=== PATIENT | male | born 1935 | race Caucasian/White ===

== ENCOUNTER 2017-06-25 13:19 | Inpatient (IN) | payer MEDICARE, MEDICAID ==
--- NOTE | 2017-06-25 15:19 | RADIOLOGY REPORT (SQ) ---
EXAM DESCRIPTION: CT HEAD WITHOUT COMPLETED DATE/TIME: 06/25/2017 3:06 pm REASON FOR STUDY: fall COMPARISON: February 2012 TECHNIQUE: Axial images acquired through the brain without intravenous contrast. Images reviewed wi th bone, brain and subdural windows. Images stored on PACS. All CT scanners at this facility use dose modulation, iterative reconstruction, and/or weight based d osing when appropriate to reduce radiation dose to as low as reasonably achievable (ALARA). [facility]: Dose Right [facility]: CareDose [facility]: Dose Right [facility]: Teradose 4D [facility]: Smart [email or web address] RADIATION DOSE: CT Rad equipment meets quality standard of care and radiation dose reduction techniq ues were employed. CTDIvol: 64.6 mGy. DLP: 1163 mGy-cm.mGy. LIMITATIONS: None. FINDINGS: VENTRICLES: Prominent. Again there is prominence of the ventricular system out of proport ion to the cortical sulci such that I cannot exclude a component of normal pressure hydrocephalus CEREBRUM: No masses. No hemorrhage. No midline shift. Areas of low density in the white matter mos t likely due to chronic micro-vascular ischemic change. No evidence for acute infarction. CEREBELLUM: No masses. No hemorrhage. No alteration of density. No evidence for acute infarction. EXTRAAXIAL SPACES: Age-related involutional change. No fluid collections. No masses. ORBITS AND GLOBE: No intra- or extraconal masses. Normal contour of globe without masses. CALVARIUM: No fracture. PARANASAL SINUSES: Small air-fluid level is identified in the left maxillary antra which could be pos ttraumatic in nature or related to sinus disease. SOFT TISSUES: No mass or hematoma. OTHER: No other significant finding. IMPRESSION: CHRONIC CHANGES OF ATROPHY AND MICROVASCULAR ISCHEMIA. Again I cannot exclude a compone nt of normal pressure hydrocephalus. No acute intracranial abnormalities are identified. Sinus dise ase as noted above. Other findings as noted above EVIDENCE OF ACUTE STROKE: NO. TECHNICAL DOCUMENTATION: JOB ID: [id number] Quality ID # [id number]: Final reports with documentation of one or more dose reduction techniques (e.g., Au tomated exposure control, adjustment of the mA and/or kV according to patient size, use of iterative reconstruction technique) 2010 [employer]- All Rights Reserved
--- NOTE | 2017-06-25 15:35 | RADIOLOGY REPORT (SQ) ---
EXAM DESCRIPTION: CHEST SINGLE VIEW COMPLETED DATE/TIME: 06/25/2017 3:12 pm REASON FOR STUDY: syncope COMPARISON: 02/24/2014 02/29/2012 EXAM PARAMETERS: NUMBER OF VIEWS: One view. TECHNIQUE: Single frontal radiographic view of the chest acquired. RADIATION DOSE: NA LIMITATIONS: None. FINDINGS: LUNGS AND PLEURA: Minimal patchy left upper lobe airspace disease in the lingula. Lungs otherwise well inflated and clear. No pleural effusions. No pneumothorax. MEDIASTINUM AND HILAR STRUCTURES: No masses. Contour normal. HEART AND VASCULAR STRUCTURES: Heart normal in size. Normal vasculature. BONES: No acute findings. HARDWARE: None in the chest. OTHER: No other significant finding. IMPRESSION: Minimal left upper lobe airspace disease, otherwise unremarkable study TECHNICAL DOCUMENTATION: JOB ID: [id number]- All Rights Reserved
--- NOTE | 2017-06-25 15:38 | RADIOLOGY REPORT (SQ) ---
EXAM DESCRIPTION: CT CERVICAL SPINE WITHOUT COMPLETED DATE/TIME: 06/25/2017 3:06 pm REASON FOR STUDY: fall COMPARISON: February 2012 TECHNIQUE: Axial images acquired through the cervical spine without intravenous contrast. Images re viewed with lung, soft tissue and bone windows. Reconstructed coronal and sagittal MPR images review ed. Images stored on PACS. All CT scanners at this facility use dose modulation, iterative reconstruction, and/or weight based d osing when appropriate to reduce radiation dose to as low as reasonably achievable (ALARA). [facility]: Dose Right [facility]: CareDose [facility]: Dose Right [facility]: Teradose 4D [facility]: Smart [employer] RADIATION DOSE: CT Rad equipment meets quality standard of care and radiation dose reduction techniq ues were employed. CTDIvol: 18.9 mGy. DLP: 514 mGy-cm. mGy. LIMITATIONS: None. FINDINGS: ALIGNMENT: Anatomic. MINERALIZATION: Normal. VERTEBRAL BODIES: No fractures or dislocation. DISCS: Multilevel disc space narrowing with osteophytes. FACETS, LATERAL MASSES, POSTERIOR ELEMENTS: Facet arthropathy. No fractures. No dislocation. No ac [place] findings. HARDWARE: None in the spine. VISUALIZED RIBS: No fractures. LUNG APICES AND SOFT TISSUES: No significant or acute findings. OTHER: No other significant finding. IMPRESSION: CHRONIC DEGENERATIVE CHANGES. NO ACUTE FINDINGS. TECHNICAL DOCUMENTATION: JOB ID: [id number] Quality ID # [id number]: Final reports with documentation of one or more dose reduction techniques (e.g., Au tomated exposure control, adjustment of the mA and/or kV according to patient size, use of iterative reconstruction technique) 2010 [employer]- All Rights Reserved
[2017-06-25 15:47] LABS: ABSOLUTE BASOPHILS # (AUTO) 0.1 10^3/uL (0.0-0.2); ABSOLUTE EOSINOPHILS # (AUTO) 0.1 10^3/uL (0.0-0.6); ABSOLUTE LYMPHOCYTES (AUTO) 0.5 10^3/uL (0.5-4.7); ABSOLUTE MONOCYTES (AUTO) 0.8 10^3/uL (0.1-1.4); ABSOLUTE NEUT (AUTO) 7.1 10^3/uL (1.7-8.2); BASOPHILS % (AUTO) 0.6 % (0-2); EOSINOPHILS % (AUTO) 0.7 % (0-6); HEMATOCRIT 36.2 % (37.9-51.0); HEMOGLOBIN 12.3 g/dL (13.5-17.0); MEAN CORPUSCULAR HEMOGLOBIN 33.4 pg (27.0-33.4); MEAN CORPUSCULAR VOLUME 98 fl (80-97); MONOCYTES % (AUTO) 9.4 % (3-13); PLATELET COUNT 174 10^3/uL (150-450); RED BLOOD COUNT 3.68 10^6/uL (4.35-5.55); RED CELL DISTRIBUTION WIDTH 13.5 % (11.5-14.0); SEGMENTED NEUTROPHILS % (AUTO) 83.3 % (42-78); TOTAL CELLS COUNTED % (AUTO) 100 %; WHITE BLOOD COUNT 8.5 10^3/uL (4.0-10.5)
--- NOTE | 2017-06-25 15:48 | ER Document Report ---
Addendum entered and electronically signed by TONY RAMOS DO 06/25/17 19: 48: Discharge - Discharge Clinical Impression: Normal pressure hydrocephalus Pneumonia Qualifiers: Pneumonia type: due to unspecified organism Laterality: left Lung location: unspecified part of lung Qualified Code(s): J18.9 - Pneumonia, unspecified organism Condition: Stable Disposition: ADMITTED OBSERVATION Admitting Provider: [facility] Unit Admitted: Telemetry Addendum entered and electronically signed by TONY RAMOS DO 06/25/17 19: 30: Course - Re-evaluation Re-evalutation: 06/25/17 19:27 Patient evaluated prior to discharge. Informed fam of the results of the urinalysis and the influenza swab. Informed that we are proceeding with discharge according to previous physician's note. Family members are very concerned about this plan. They state the patient is too unsteady on his feet and has fallen several times today. Patient does have a pneumonia that you can see on chest x-ray as well. I going to cancel the discharge at this time. Will consult with the hospitalist to admit patient. - Vital Signs Vital signs: Temp Pulse Resp BP Pulse Ox 98.4 F 17 155/52 H 98 06/25/17 17:30 06/25/17 19:01 06/25/17 19:01 06/25/17 19:01 - Laboratory Result Diagrams: 06/25/17 15:28 06/25/17 15:28 Laboratory results interpreted by me: 06/25/17 06/25/17 06/25/17 15:28 15:28 15:28 RBC 3.68 L Hgb 12.3 L Hct 36.2 L MCV 98 H Seg Neutrophils % 83.3 H Lymphocytes % 6.0 L PT 16.8 H APTT 38.1 H Potassium 3.5 L Direct Bilirubin 0.5 H Total Protein 5.9 L Albumin 3.3 L Urine Blood 06/25/17 18:34 RBC Hgb Hct MCV Seg Neutrophils % Lymphocytes % PT APTT Potassium Direct Bilirubin Total Protein Albumin Urine Blood SMALL H Discharge - Discharge Clinical Impression: Normal pressure hydrocephalus Pneumonia Qualifiers: Pneumonia type: due to unspecified organism Laterality: left Lung location: unspecified part of lung Qualified Code(s): J18.9 - Pneumonia, unspecified organism Condition: Stable Disposition: ADMITTED INPATIENT Admitting Provider: [facility] Unit Admitted: Medical Floor Additional Instructions: Follow up with DR Mckeon at [phone] regarding the abnormal cat scan findings of the brain that we discussed. Referrals: ARIE SMITH DO [Primary Care Provider] - Follow up as needed Addendum entered and electronically signed by TONY RAMOS DO 06/25/17 19: 18: Discharge - Discharge Clinical Impression: Normal pressure hydrocephalus Pneumonia Qualifiers: Pneumonia type: due to unspecified organism Laterality: left Lung location: unspecified part of lung Qualified Code(s): J18.9 - Pneumonia, unspecified organism Condition: Stable Additional Instructions: Follow up with DR Mckeon at [phone] regarding the abnormal cat scan findings of the brain that we discussed. Referrals: ARIE SMITH DO [Primary Care Provider] - Follow up as needed Original Note: ED General <TONY RAMOS - Last Filed: 06/25/17 19:48> - General TRAVEL OUTSIDE OF THE [place] IN LAST 30 DAYS: No - HPI Patient complains to provider of: syncope Onset: Just prior to arrival Similar symptoms previously: No Recently seen / treated by doctor: Yes - saw PMD yesterday <HARRY DECKER - Last Filed: 06/26/17 09:42> - General Chief Complaint: Syncope Stated Complaint: POSSIBLE SYNCOPE Time Seen by Provider: 06/25/17 14:00 - HPI Notes: Patient's daughter states that she left the patient in a chair in the kitchen and went to the bathroom when she returned he was on the floor with decreased responsiveness. His he did see his primary medical doctor yesterday and was started on azithromycin because he had a temperature. (HARRY DECKER) - Related Data Allergies/Adverse Reactions: No Known Allergies Allergy (Verified 03/07/13 10:47) Past Medical History - General Information source: Patient, Relative - daughter - Social History Smoking Status: Never Smoker Frequency of alcohol use: None Drug Abuse: None Lives with: Family Family History: None - Past Medical History Cardiac Medical History: Reports: Hx Hypercholesterolemia, Hx Hypertension Denies: Hx Coronary Artery Disease, Hx Heart Attack Pulmonary Medical History: Reports: Hx Pneumonia - "years ago" Denies: Hx Asthma, Hx Bronchitis, Hx COPD, Hx Tuberculosis EENT Medical History: Reports: None Neurological Medical History: Reports: None. Denies: Hx Cerebrovascular Accident, Hx Migraine, Hx Seizures Endocrine Medical History: Reports: None GI Medical History: Reports: Hx Gastroesophageal Reflux Disease, Hx Hiatal Hernia Musculoskeltal Medical History: Denies Hx Arthritis Past Surgical History: Reports: Hx Appendectomy, Hx Cholecystectomy, Hx Orthopedic Surgery - left leg and left wrist - Immunizations Hx Diphtheria, Pertussis, Tetanus Vaccination: Yes - unknown Hx Pneumococcal Vaccination: 03/07/11 <HARRY DECKER E - Last Filed: 06/26/17 09:42> Review of Systems - Review of Systems Constitutional: Fever EENT: No symptoms reported Cardiovascular: No symptoms reported Respiratory: No symptoms reported Gastrointestinal: No symptoms reported Genitourinary: Incontinence Male Genitourinary: No symptoms reported Musculoskeletal: No symptoms reported Skin: No symptoms reported Hematologic/Lymphatic: No symptoms reported Neurological/Psychological: Dementia <BRIANNEDANYELLJONG E - Last Filed: 06/26/17 09:42> Physical Exam <TONY RAMOS A - Last Filed: 06/25/17 19:48> <BRIANNEDANYELLJONG E - Last Filed: 06/26/17 09:42> - Vital signs Vitals: Temp Pulse BP Pulse Ox 97.5 F 50 L 115/38 L 97 06/25/17 13:26 06/25/17 13:26 06/25/17 13:26 06/25/17 13:26 - Notes Notes: PHYSICAL EXAMINATION: GENERAL: elderly male, NAD appears stated age. HEAD: Atraumatic, normocephalic. EYES: Pupils equal round and reactive to light, extraocular movements intact, conjunctiva are normal. No nystagmus. ENT: Nares patent, oropharynx clear without exudates. Mildly dry mucous membranes. NECK: Normal range of motion, supple without lymphadenopathy LUNGS: Breath sounds clear to auscultation bilaterally and equal. No wheezes rales or rhonchi. HEART: Regular rate and rhythm +murmur ABDOMEN: Soft, nontender, nondistended abdomen. No guarding, no rebound. No masses appreciated. Female : deferred Musculoskeletal: Normal range of motion, no pitting or edema. No cyanosis. NEUROLOGICAL: Cranial nerves grossly intact-harh of hearing. Normal speech. Normal sensory, motor exams. Patient ambulates with shuffled gait(new for patient as per family). Alert x2 PSYCH: Normal mood, normal affect. SKIN: Warm, Dry, normal turgor, no rashes or lesions noted. PHYSICAL EXAMINATION: (HARRY DECKER) Course - Laboratory Result Diagrams: 06/25/17 15:28 06/25/17 15:28 <TONY RAMOS - Last Filed: 06/25/17 19:48> - Laboratory Result Diagrams: 06/26/17 03:01 06/26/17 03:01 <HARRY DECKER - Last Filed: 06/26/17 09:42> - Re-evaluation Re-evalutation: 06/25/17 19:15 Patient was taken at sign out at [address] Decker. Plan is to discharge based on above. Reviewing the urinalysis and influenza results. Both of these are negative. Will proceed with plans as described above. ( TONY RAMOS) 06/25/17 15:48 I did talk to Dr. Davis regarding the probability of normal pressure hydrocephalus. Patient did have a CAT scan in 2012 of the head which also revealed possibility of normal pressure hydrocephalus. Dr. Davis did compared to and she said that there is not any progression on the one done today. 06/25/17 16:24 I did get the patient up to ambulate with Arti RAMON. He does have a shuffled gait. He also had urinary incontinence in the emergency department which is new for the patient. 06/25/17 16:35 I did call [facility] and spoke with transfer line.Faxing over demographic sheet. Awaiting call back from hospitalist. 06/25/17 17:[address] Arvizu at [facility] after he reviewed the Ct head and he stated patient can follow up as outpatient with Dr. Mckeon as outpatient. #[phone]. 06/25/17 17:29 I did inform the daughter that patient can f/u as OP for NPH. If there is any other reason to have a hospitalist consult I will. (HARRY DECKER) - Vital Signs Vital signs: Temp Pulse Resp BP Pulse Ox 98.9 F 86 18 132/44 H 91 L 01/20/18 08:17 06/26/17 08:28 06/26/17 08:28 06/26/17 08:17 06/26/17 08:28 - Laboratory Laboratory results interpreted by me: 06/25/17 06/25/17 06/25/17 15:28 15:28 15:28 RBC 3.68 L Hgb 12.3 L Hct 36.2 L MCV 98 H Seg Neutrophils % 83.3 H Lymphocytes % 6.0 L PT 16.8 H APTT 38.1 H Potassium 3.5 L Direct Bilirubin 0.5 H Total Protein 5.9 L Albumin 3.3 L Urine Blood 06/25/17 18:34 RBC Hgb Hct MCV Seg Neutrophils % Lymphocytes % PT APTT Potassium Direct Bilirubin Total Protein Albumin Urine Blood SMALL H Discharge <TONY RAMOS A - Last Filed: 06/25/17 19:48> <HARRY DECKER - Last Filed: 06/26/17 09:42> - Discharge Clinical Impression: Normal pressure hydrocephalus Pneumonia Qualifiers: Pneumonia type: due to unspecified organism Laterality: left Lung location: unspecified part of lung Qualified Code(s): J18.9 - Pneumonia, unspecified organism Condition: Stable Disposition: ADMITTED OBSERVATION
[2017-06-25 15:54] LABS: INTERNATIONAL RATION (INR) 1.28; PROTHROMBIN TIME 16.8 SEC (11.4-15.4)
[2017-06-25 15:55] LABS: PARTIAL THROMBOPLASTIN TIME 38.1 SEC (23.5-35.8)
[2017-06-25 16:11] LABS: ALANINE AMINOTRANSFERASE 36 U/L (21-72); ALBUMIN 3.3 g/dL (3.5-5.0); ALKALINE PHOSPHATASE 64 U/L (38-126); ANION GAP 8 (5-19); ASPARTATE AMINO TRANSFERASE 35 U/L (17-59); BILIRUBIN,DIRECT 0.5 mg/dL (0.0-0.4); BILIRUBIN,TOTAL 0.8 mg/dL (0.2-1.3); BLOOD UREA NITROGEN 19 mg/dL (7-20); CALCIUM 8.6 mg/dL (8.4-10.2); CARBON DIOXIDE 30 mmol/L (22-30); CHLORIDE 101 mmol/L (98-107); GLUCOSE 105 mg/dL (75-110); MAGNESIUM 1.7 mg/dL (1.6-2.3); POTASSIUM 3.5 mmol/L (3.6-5.0); SODIUM 138.7 mmol/L (137-145); TOTAL PROTEIN 5.9 g/dL (6.3-8.2)
[2017-06-25] MEDS ORDERED: POTASSIUM CHLORIDE 20 MEQ/15 ML UDCUP PO ONE (17:24)
[2017-06-25 18:28] LABS: A TYPE INFLUENZA AG NEGATIVE (NEGATIVE); B INFLUENZA AG NEGATIVE (NEGATIVE)
[2017-06-25 18:54] LABS: APPEARANCE,URINE CLEAR; BILIRUBIN,URINE NEGATIVE (NEGATIVE); COLOR,URINE STRAW; GLUCOSE, URINE NEGATIVE (NEGATIVE); KETONES,URINE NEGATIVE (NEGATIVE); LEUKOCYTE ESTERASE,URINE NEGATIVE (NEGATIVE); NITRITE,URINE NEGATIVE (NEGATIVE); PROTEIN,URINE NEGATIVE (NEGATIVE); URINE SPECIFIC GRAVITY 1.004; UROBILINOGEN,URINE NEGATIVE mg/dL (<2.0)
[2017-06-25] MEDS ORDERED: CEFTRIAXONE 1 GM/D5W RTU 1 GM/50 ML RTUPB IV ONE (19:29)
[2017-06-25] MEDS ORDERED: MAG HYDROX/AL HYDROX/SIMETH SUSP 30 ML UDCUP PO PRN (19:48)
[2017-06-25] MEDS ORDERED: CEFTRIAXONE INJ 1000 MG VIAL IV ONE (20:00)
[2017-06-25] MEDS: IPRATROPIUM/ALBUTEROL 0.5-2.5 MG/3 ML AMPUL NEB SCH (20:52)
[2017-06-25 21:17] LABS: URINE AMPHETAMINES SCREEN NEGATIVE; URINE BARBITURATES SCREEN NEGATIVE; URINE BENZODIAZEPINES SCREEN NEGATIVE; URINE COCAINE SCREEN NEGATIVE; URINE MARIJUANA (THC) SCREEN NEGATIVE; URINE METHADONE SCREEN NEGATIVE; URINE PHENCYCLIDINE SCREEN NEGATIVE
[2017-06-25 22:06] LABS: CREATINE KINASE MB 0.94 ng/mL (<4.55)
[2017-06-25 22:11] LABS: TROPONIN I < 0.012 ng/mL
[2017-06-25] MEDS ORDERED: D METHORPHAN HB PO PRN (22:56)
[2017-06-25] MEDS ORDERED: PROMETH HCL PO PRN (22:56)
[2017-06-25] MEDS ORDERED: RISPERIDONE 0.25 MG TABLET PO ONE (23:00)
--- NOTE | 2017-06-25 23:07 | PDOC H&P ---
History of Present Illness Admission Date/PCP: 06/25/17 19:38 ARIE SMITH DO Patient complains of: Cough History of Present Illness: MALIKA SINGH is a 82 year old male with a past medical history of advanced Parkinson's with dementia and delirium, presents with worsening delirium, falls and shortness of breath and cough. In the emergency room he is found to have a CT of the head suggesting normal pressure hydrocephalus which is present from 2011 and left upper lobe infiltrate suggestive of pneumonia. He is started on empiric antibiotics referred to the hospitalist for admission. Family admits severe sundowning and agitation requiring sedation. Past Medical History Cardiac Medical History: Reports: Hyperlipidema, Hypertension Denies: Coronary Artery Disease, Myocardial Infarction Pulmonary Medical History: Reports: Pneumonia - "years ago" Denies: Asthma, Bronchitis, Chronic Obstructive Pulmonary Disease (COPD), Tuberculosis EENT Medical History: Reports: None Neurological Medical History: Reports: None Denies: Migraine, Seizures Endocrine Medical History: Reports: None GI Medical History: Reports: Gastroesophageal Reflux Disease, Hiatal Hernia Musculoskeltal Medical History: Denies: Arthritis Hematology: Denies: Anemia Past Surgical History Past Surgical History: Reports: Appendectomy, Cholecystectomy, Orthopedic Surgery - left leg and left wrist Social History Lives with: Family Smoking Status: Never Smoker Hx Recreational Drug Use: No Hx Prescription Drug Abuse: No - Advance Directive Resuscitation Status: Do Not Resuscitate Family History Family History: None Parental Family History Reviewed: Yes Children Family History Reviewed: Yes Sibling(s) Family History Reviewed.: Yes Medication/Allergy Home Medications: Aspirin [Aspirin EC] 81 mg PO DAILY 06/25/17 Azithromycin [Zithromax 250 mg Tablet] 250 mg PO DAILY 06/25/17 Cholecalciferol (Vitamin D3) [Vitamin D3 1000 Unit Tablet] 1,000 unit PO DAILY 06/25/17 D-Methorphan Hb/Prometh HCl [Promethazine-Dm Syrup] 5 ml PO Q6HP PRN 06/25/17 Donepezil HCl [Aricept] 10 mg PO QPM 06/25/17 Hydrochlorothiazide [Hydrodiuril 25 mg Tablet] 12.5 mg PO DAILY 06/25/17 Loratadine [Claritin] 10 mg PO DAILY 06/25/17 Lorazepam [Ativan 1 mg Tablet] 1 mg PO QAM 06/25/17 Lorazepam [Ativan 1 mg Tablet] 2 mg PO QHS 06/25/17 Nabumetone [Relafen] 1,000 mg PO QHS 06/25/17 Omeprazole 20 mg PO DAILY 06/25/17 Simvastatin [Zocor 20 mg Tablet] 20 mg PO QPM 06/25/17 Tamsulosin HCl [Flomax 0.4 mg Cap.sr] 0.4 mg PO DAILY 06/25/17 Zolpidem Tartrate [Ambien 5 mg Tablet] 5 mg PO QHS 06/25/17 Allergies/Adverse Reactions: No Known Allergies Allergy (Verified 03/07/13 10:47) Review of Systems ROS unobtainable: Due to mental status Physical Exam Vital Signs: Temp Pulse Resp BP Pulse Ox 98.4 F 78 22 H 139/53 H 98 06/25/17 17:30 06/25/17 20:52 06/25/17 21:13 06/25/17 21:13 06/25/17 21:13 General appearance: PRESENT: cooperative, disheveled, mild distress, thin Head exam: PRESENT: atraumatic, normocephalic Eye exam: PRESENT: conjunctiva pink, EOMI, PERRLA. ABSENT: scleral icterus Ear exam: PRESENT: normal external ear exam Mouth exam: PRESENT: moist, tongue midline Neck exam: ABSENT: carotid bruit, JVD, lymphadenopathy, thyromegaly Respiratory exam: PRESENT: crackles, decreased breath sounds, prolonged expiratory phas, tachypnea. ABSENT: clear to auscultation luis, stridor, wheezes Cardiovascular exam: PRESENT: RRR. ABSENT: diastolic murmur, rubs, systolic murmur Pulses: PRESENT: normal dorsalis pedis pul Vascular exam: PRESENT: normal capillary refill GI/Abdominal exam: PRESENT: normal bowel sounds, soft. ABSENT: distended, guarding, mass, organolmegaly, rebound, tenderness Rectal exam: PRESENT: deferred Extremities exam: PRESENT: full ROM. ABSENT: calf tenderness, clubbing, pedal edema Neurological exam: PRESENT: alert, awake, oriented to person, ataxia, CN II-XII grossly intact. ABSENT: motor sensory deficit Psychiatric exam: PRESENT: agitated, anxious Skin exam: PRESENT: dry, intact, warm. ABSENT: cyanosis, rash Results Laboratory Results: 06/25/17 06/25/17 21:00 21:00 Magnesium 1.8 TSH 1.21 06/25/17 06/25/17 21:00 21:04 Creatine Kinase 122 CK-MB (CK-2) 0.94 Troponin I < 0.012 Impressions: Chest X-Ray 06/25/17 14:01 IMPRESSION: Minimal left upper lobe airspace disease, otherwise unremarkable study Cervical Spine CT 06/25/17 14:27 IMPRESSION: CHRONIC DEGENERATIVE CHANGES. NO ACUTE FINDINGS. Head CT 06/25/17 14:27 IMPRESSION: CHRONIC CHANGES OF ATROPHY AND MICROVASCULAR ISCHEMIA. Again I cannot exclude a component of normal pressure hydrocephalus. No acute intracranial abnormalities are identified. Sinus disease as noted above. Other findings as noted above EVIDENCE OF ACUTE STROKE: NO. Assessment & Plan - Diagnosis (1) Pneumonia Qualifiers: Pneumonia type: due to unspecified organism Laterality: left Lung location: unspecified part of lung Qualified Code(s): J18.9 - Pneumonia, unspecified organism Is this a current diagnosis for this admission?: Yes Plan: Telemetry with supplemental oxygen, albuterol and Atrovent, pneumonia care set (2) Parkinson's disease dementia Is this a current diagnosis for this admission?: Yes Plan: Continue outpatient regiment (3) SunDown syndrome Is this a current diagnosis for this admission?: Yes Plan: Benzodiazepine and trial risperidone as needed (4) Normal pressure hydrocephalus Is this a current diagnosis for this admission?: Yes Plan: Possible contributor to mental status however present on imaging from 2011. Consider interventional radiology consult for LP versus supportive care - Time Time Spent: 50 to 70 Minutes - Inpatient Certification Medical Necessity: Need Close Monitoring Due to Risk of Patient Decompensation
[2017-06-25] MEDS ORDERED: LORAZEPAM 1 MG TABLET PO ONE (23:45)
[2017-06-26] MEDS: HEPARIN SOD (PORCINE) 5,000 UNIT/ML 1 ML SYRINGE SUBCUT SCH ×4 (00:16→22:28)
[2017-06-26] MEDS: DOXYCYCLINE HYCLATE 100 MG TABLET PO SCH ×3 (00:16→22:31)
[2017-06-26] MEDS ORDERED: RISPERIDONE 0.5 MG TAB.RAPDIS ONE (00:57)
[2017-06-26] MEDS: IPRATROPIUM/ALBUTEROL 0.5-2.5 MG/3 ML AMPUL NEB SCH ×4 (02:10→19:50)
[2017-06-26 03:19] LABS: ABSOLUTE BASOPHILS # (AUTO) 0.1 10^3/uL (0.0-0.2); ABSOLUTE LYMPHOCYTES (AUTO) 0.8 10^3/uL (0.5-4.7); ABSOLUTE MONOCYTES (AUTO) 0.7 10^3/uL (0.1-1.4); ABSOLUTE NEUT (AUTO) 8.2 10^3/uL (1.7-8.2); BASOPHILS % (AUTO) 0.6 % (0-2); HEMATOCRIT 33.7 % (37.9-51.0); HEMOGLOBIN 11.8 g/dL (13.5-17.0); LYMPHOCYTES % (AUTO) 7.9 % (13-45); MEAN CORPUSCULAR HGB CONC 34.9 g/dL (32.0-36.0); MEAN CORPUSCULAR VOLUME 97 fl (80-97); MONOCYTES % (AUTO) 7.6 % (3-13); PLATELET COUNT 172 10^3/uL (150-450); RED BLOOD COUNT 3.47 10^6/uL (4.35-5.55); RED CELL DISTRIBUTION WIDTH 13.3 % (11.5-14.0); SEGMENTED NEUTROPHILS % (AUTO) 83.9 % (42-78); TOTAL CELLS COUNTED % (AUTO) 100 %; WHITE BLOOD COUNT 9.7 10^3/uL (4.0-10.5)
[2017-06-26 03:38] LABS: ANION GAP 7 (5-19); BLOOD UREA NITROGEN 16 mg/dL (7-20); CALCIUM 9.1 mg/dL (8.4-10.2); CARBON DIOXIDE 29 mmol/L (22-30); CHLORIDE 101 mmol/L (98-107); CREATINE KINASE 177 U/L (55-170); GLUCOSE 130 mg/dL (75-110); POTASSIUM 3.4 mmol/L (3.6-5.0); SODIUM 137.3 mmol/L (137-145)
[2017-06-26 03:49] LABS: CREATINE KINASE MB 0.66 ng/mL (<4.55); TROPONIN I 0.025 ng/mL
[2017-06-26] MEDS ORDERED: LORAZEPAM 1 MG TABLET PO SCH ×2 (08:00→15:14)
[2017-06-26] MEDS: TAMSULOSIN HCL 0.4 MG CAP.SR.24H PO SCH (10:07)
[2017-06-26] MEDS: CHOLECALCIFEROL (D3) 1,000 UNIT TABLET PO SCH (10:07)
[2017-06-26] MEDS: DOCUSATE SODIUM 100 MG CAPSULE PO SCH ×2 (10:07→17:44)
[2017-06-26] MEDS: LORATADINE 10 MG TABLET PO SCH (10:07)
[2017-06-26] MEDS: LANSOPRAZOLE 15 MG TAB.RAP.DR PO SCH (10:08)
[2017-06-26] MEDS: ASPIRIN 81 MG TABLET, ENT COATED PO SCH (10:08)
--- NOTE | 2017-06-26 10:22 | EKG REPORT ---
SEVERITY:- ABNORMAL ECG - SINUS RHYTHM VENTRICULAR PREMATURE COMPLEX PROBABLE LVH WITH SECONDARY REPOL ABNRM BORDERLINE PROLONGED QT INTERVAL : Confirmed by: Toribio Lieberman 26-Jun-2017 10:22:15
[2017-06-26 10:38] LABS: CREATINE KINASE MB 0.58 ng/mL (<4.55); TROPONIN I 0.029 ng/mL
[2017-06-26] MEDS ORDERED: LORAZEPAM 1 MG TABLET PO ONE (12:15)
[2017-06-26] MEDS ORDERED: POTASSIUM CHLORIDE 10 MEQ TABLET.SA PO ONE (13:31)
--- NOTE | 2017-06-26 15:18 | PDOC PROGRESS REPORT ---
Subjective Progress Note for:: 06/26/17 Subjective:: The patient has an 82-year-old male with a past medical history of advanced Parkinson's with dementia and delirium who was admitted on 06/25/17 for worsening delirium and pneumonia. When first noted on this morning, the patient was quite somnolent. He would arouse briefly to sternal rub. He was seen again this afternoon with his family members present. He is found resting in bed comfortably on room air. He is socially appropriate and attempts to be conversational, although he is quite confused. The patient's daughter states that he has been in his usual state of health until approximately 3 or 4 days ago when he began complaining of shortness of breath, cough, and was more confused than his baseline. She states that she would like to arrange for him to go to short-term rehab for physical therapy once he is stable for discharge. Reason For Visit: SYNCOPE, ACUTE BRONCHITIS, COPD EXACERBATION, Physical Exam Vital Signs: Temp Pulse Resp BP Pulse Ox 98.8 F 87 18 138/45 H 93 06/26/17 11:33 06/26/17 14:21 06/26/17 14:21 06/26/17 11:33 06/26/17 14:21 Intake & Output 06/25/17 06/26/17 06/27/17 06:59 06:59 06:59 Intake Total 332 Balance 332 Weight 72.9 kg General appearance: PRESENT: no acute distress, hard of hearing, thin, well- developed, well-nourished Head exam: PRESENT: atraumatic, normocephalic Eye exam: PRESENT: conjunctiva pink, EOMI, PERRLA. ABSENT: scleral icterus Ear exam: PRESENT: normal external ear exam Mouth exam: PRESENT: moist, tongue midline Neck exam: ABSENT: carotid bruit, JVD, lymphadenopathy, thyromegaly Respiratory exam: PRESENT: clear to auscultation luis, decreased breath sounds - Bibasilar, prolonged expiratory phas, rhonchi. ABSENT: rales, wheezes Cardiovascular exam: PRESENT: RRR. ABSENT: diastolic murmur, rubs, systolic murmur Pulses: PRESENT: normal dorsalis pedis pul Vascular exam: PRESENT: normal capillary refill GI/Abdominal exam: PRESENT: normal bowel sounds, soft. ABSENT: distended, guarding, mass, organolmegaly, rebound, tenderness Rectal exam: PRESENT: deferred Extremities exam: PRESENT: full ROM. ABSENT: calf tenderness, clubbing, pedal edema Neurological exam: PRESENT: alert, awake, oriented to person, CN II-XII grossly intact, other - Pleasantly confused; usually appropriate and follows directions. ABSENT: oriented to place, oriented to time, oriented to situation , motor sensory deficit Psychiatric exam: PRESENT: appropriate affect, normal mood. ABSENT: homicidal ideation, suicidal ideation Skin exam: PRESENT: dry, intact, warm. ABSENT: cyanosis, rash Results Laboratory Results: 06/26/17 03:01 06/26/17 03:01 06/25/17 06/25/17 06/26/17 21:00 21:00 03:01 WBC 9.7 RBC 3.47 L Hgb 11.8 L Hct 33.7 L MCV 97 MCH 34.0 H MCHC 34.9 RDW 13.3 Plt Count 172 Seg Neutrophils % 83.9 H Lymphocytes % 7.9 L Monocytes % 7.6 Eosinophils % 0.0 Basophils % 0.6 Absolute Neutrophils 8.2 Absolute Lymphocytes 0.8 Absolute Monocytes 0.7 Absolute Eosinophils 0.0 Absolute Basophils 0.1 Sodium Potassium Chloride Carbon Dioxide Anion Gap BUN Creatinine Est GFR ( Amer) Est GFR (Non-Af Amer) Glucose Calcium Magnesium 1.8 TSH 1.21 06/26/17 03:01 WBC RBC Hgb Hct MCV MCH MCHC RDW Plt Count Seg Neutrophils % Lymphocytes % Monocytes % Eosinophils % Basophils % Absolute Neutrophils Absolute Lymphocytes Absolute Monocytes Absolute Eosinophils Absolute Basophils Sodium 137.3 Potassium 3.4 L Chloride 101 Carbon Dioxide 29 Anion Gap 7 BUN 16 Creatinine 1.11 Est GFR ( Amer) > 60 Est GFR (Non-Af Amer) > 60 Glucose 130 H Calcium 9.1 Magnesium TSH 06/25/17 06/25/17 06/26/17 21:00 21:04 03:01 Creatine Kinase 122 CK-MB (CK-2) 0.94 0.66 Troponin I < 0.012 0.025 06/26/17 06/26/17 06/26/17 03:01 09:48 09:48 Creatine Kinase 177 H 179 H CK-MB (CK-2) 0.58 Troponin I 0.029 Impressions: Chest X-Ray 06/25/17 14:01 IMPRESSION: Minimal left upper lobe airspace disease, otherwise unremarkable study Cervical Spine CT 06/25/17 14:27 IMPRESSION: CHRONIC DEGENERATIVE CHANGES. NO ACUTE FINDINGS. Head CT 06/25/17 14:27 IMPRESSION: CHRONIC CHANGES OF ATROPHY AND MICROVASCULAR ISCHEMIA. Again I cannot exclude a component of normal pressure hydrocephalus. No acute intracranial abnormalities are identified. Sinus disease as noted above. Other findings as noted above EVIDENCE OF ACUTE STROKE: NO. Assessment & Plan - Diagnosis (1) Pneumonia Qualifiers: Pneumonia type: due to unspecified organism Laterality: left Lung location: unspecified part of lung Qualified Code(s): J18.9 - Pneumonia, unspecified organism Is this a current diagnosis for this admission?: Yes Plan: Improved; the patient is now maintaining oxygen saturations while on room air. Continue doxycycline every 12 hours. Continue scheduled and as needed DuoNeb's. Supplemental oxygen as needed to keep saturations greater than 92%. Increase mobility; out of bed to chair for meals and ambulate in the hallways daily. Encourage incentive spirometry and flutter valve as patient is able. (2) Parkinson's disease dementia Is this a current diagnosis for this admission?: Yes Plan: The patient was quite delirious last night; likely secondary to advanced Parkinson's disease with dementia and sundowning. This morning he was somnolent and difficult to arouse until early afternoon. The patient is changed to inpatient status as his continued altered mental status and delirium from baseline requires medication adjustments. I have decreased his Ambien from 5 mg to 2.5 mg nightly. We will similarly decrease Ativan 1 mg every morning to 0.5 mg every morning. Continue risperidone. (3) SunDown syndrome Is this a current diagnosis for this admission?: Yes Plan: The patient's evening home dose of lorazepam 2mg qHS is continued. Will reduce the AM dose secondary to daytime somnolence. We will decrease the patient's Ambien from 5 mg to 2.5 mg. Continue Risperdal as needed for agitation. Provide for patient safety; fall precautions. (4) Normal pressure hydrocephalus Is this a current diagnosis for this admission?: Yes Plan: Possibly a contributor to his current mental status, however, it was noted on previous imaging from 2011. Consider interventional radiology consult for LP versus supportive care. - Time Time Spent with patient: 25-34 minutes Medications reviewed and adjusted accordingly: Yes Anticipated discharge: SNF - for short term rehabilitation Within: within 48 hours
[2017-06-26] MEDS: SIMVASTATIN 10 MG TABLET PO SCH (17:45)
[2017-06-26] MEDS ORDERED: ZOLPIDEM TARTRATE 5 MG TABLET PO SCH ×2 (22:00)
[2017-06-26] MEDS: LORAZEPAM 1 MG TABLET PO SCH (22:26)
[2017-06-26] MEDS: RISPERIDONE 0.25 MG TABLET PO SCH (23:49)
[2017-06-27] MEDS: ACETAMINOPHEN 325 MG TABLET PO PRN ×2 (01:16→15:15)
[2017-06-27] MEDS: IPRATROPIUM/ALBUTEROL 0.5-2.5 MG/3 ML AMPUL NEB SCH ×4 (01:59→20:13)
[2017-06-27 05:07] LABS: HEMATOCRIT 37.3 % (37.9-51.0); HEMOGLOBIN 12.5 g/dL (13.5-17.0); MEAN CORPUSCULAR HGB CONC 33.5 g/dL (32.0-36.0); MEAN CORPUSCULAR VOLUME 99 fl (80-97); PLATELET COUNT 181 10^3/uL (150-450); RED BLOOD COUNT 3.79 10^6/uL (4.35-5.55); RED CELL DISTRIBUTION WIDTH 13.6 % (11.5-14.0); WHITE BLOOD COUNT 12.8 10^3/uL (4.0-10.5)
[2017-06-27 05:35] LABS: ANION GAP 11 (5-19); BLOOD UREA NITROGEN 15 mg/dL (7-20); CALCIUM 9.3 mg/dL (8.4-10.2); CARBON DIOXIDE 28 mmol/L (22-30); CHLORIDE 99 mmol/L (98-107); GLUCOSE 140 mg/dL (75-110); SODIUM 137.8 mmol/L (137-145)
[2017-06-27] MEDS: HEPARIN SOD (PORCINE) 5,000 UNIT/ML 1 ML SYRINGE SUBCUT SCH ×3 (06:16→23:52)
[2017-06-27] MEDS ORDERED: LORAZEPAM 0.5 MG TABLET PO SCH (08:00)
[2017-06-27] MEDS: ASPIRIN 81 MG TABLET, ENT COATED PO SCH (09:34)
[2017-06-27] MEDS: LANSOPRAZOLE 15 MG TAB.RAP.DR PO SCH (09:34)
[2017-06-27] MEDS: TAMSULOSIN HCL 0.4 MG CAP.SR.24H PO SCH (09:35)
[2017-06-27] MEDS: LORATADINE 10 MG TABLET PO SCH (09:35)
[2017-06-27] MEDS: CHOLECALCIFEROL (D3) 1,000 UNIT TABLET PO SCH (09:35)
[2017-06-27] MEDS: DOCUSATE SODIUM 100 MG CAPSULE PO SCH ×2 (09:35→18:09)
[2017-06-27] MEDS: DOXYCYCLINE HYCLATE 100 MG TABLET PO SCH ×2 (09:36→23:52)
--- NOTE | 2017-06-27 12:31 | PDOC PROGRESS REPORT ---
Subjective Progress Note for:: 06/27/17 Subjective:: The patient has an 82-year-old male with a past medical history of advanced Parkinson's with dementia and delirium who was admitted on 06/25/17 for worsening delirium and pneumonia. The patient is seen on morning rounds resting in bed comfortably. He is sleeping, but wakes easily with gentle touch. He states that he is feeling fine and does not have any complaints at this time. Of note, the patient has dementia at baseline and no family members were present for the exam. Reason For Visit: PNEUMONIA,PARKINSON'S DISEASE DEMENTIA Physical Exam Vital Signs: Temp Pulse Resp BP Pulse Ox 98.5 F 95 20 161/53 H 91 L 06/27/17 07:48 06/27/17 07:48 06/27/17 07:48 06/27/17 07:48 06/27/17 07:48 Intake & Output 06/26/17 06/27/17 06/28/17 06:59 06:59 06:59 Intake Total 685 Balance 685 Weight 79 kg General appearance: PRESENT: no acute distress, hard of hearing, well-developed , well-nourished Head exam: PRESENT: atraumatic, normocephalic Eye exam: PRESENT: conjunctiva pink, EOMI, PERRLA. ABSENT: scleral icterus Ear exam: PRESENT: normal external ear exam Mouth exam: PRESENT: moist, tongue midline Neck exam: ABSENT: carotid bruit, JVD, lymphadenopathy, thyromegaly Respiratory exam: PRESENT: decreased breath sounds - bibasilar, prolonged expiratory phas. ABSENT: rales, rhonchi, wheezes Cardiovascular exam: PRESENT: RRR, +S1, +S2. ABSENT: diastolic murmur, rubs, systolic murmur Pulses: PRESENT: normal dorsalis pedis pul Vascular exam: PRESENT: normal capillary refill GI/Abdominal exam: PRESENT: normal bowel sounds, soft. ABSENT: distended, guarding, mass, organolmegaly, rebound, tenderness Rectal exam: PRESENT: deferred Extremities exam: PRESENT: full ROM. ABSENT: calf tenderness, clubbing, pedal edema Neurological exam: PRESENT: alert, awake, oriented to person, CN II-XII grossly intact. ABSENT: oriented to place, oriented to time, oriented to situation, motor sensory deficit Psychiatric exam: PRESENT: appropriate affect, normal mood. ABSENT: homicidal ideation, suicidal ideation Skin exam: PRESENT: dry, intact, warm. ABSENT: cyanosis, rash Results Laboratory Results: 06/27/17 04:28 06/27/17 04:28 06/27/17 06/27/17 04:28 04:28 WBC 12.8 H RBC 3.79 L Hgb 12.5 L Hct 37.3 L MCV 99 H MCH 33.0 MCHC 33.5 RDW 13.6 Plt Count 181 Sodium 137.8 Potassium 4.0 Chloride 99 Carbon Dioxide 28 Anion Gap 11 BUN 15 Creatinine 0.83 Est GFR ( Amer) > 60 Est GFR (Non-Af Amer) > 60 Glucose 140 H Calcium 9.3 Impressions: Chest X-Ray 06/25/17 14:01 IMPRESSION: Minimal left upper lobe airspace disease, otherwise unremarkable study Cervical Spine CT 06/25/17 14:27 IMPRESSION: CHRONIC DEGENERATIVE CHANGES. NO ACUTE FINDINGS. Head CT 06/25/17 14:27 IMPRESSION: CHRONIC CHANGES OF ATROPHY AND MICROVASCULAR ISCHEMIA. Again I cannot exclude a component of normal pressure hydrocephalus. No acute intracranial abnormalities are identified. Sinus disease as noted above. Other findings as noted above EVIDENCE OF ACUTE STROKE: NO. Assessment & Plan - Diagnosis (1) Pneumonia Qualifiers: Pneumonia type: due to unspecified organism Laterality: left Lung location: unspecified part of lung Qualified Code(s): J18.9 - Pneumonia, unspecified organism Is this a current diagnosis for this admission?: Yes Plan: Improved; the patient is now maintaining oxygen saturations while on room air. Continue doxycycline every 12 hours. Continue scheduled and as needed DuoNeb's. Supplemental oxygen as needed to keep saturations greater than 92%. Increase mobility; out of bed to chair for meals and ambulate in the hallways daily. Encourage incentive spirometry and flutter valve as patient is able. (2) Parkinson's disease dementia Is this a current diagnosis for this admission?: Yes Plan: The patient did well with dose reductions of Ambien and Ativan. I have decreased his Ambien from 5 mg to 2.5 mg nightly and from Ativan 1 mg every morning to 0.5 mg every morning. Continue risperidone as needed. (3) SunDown syndrome Is this a current diagnosis for this admission?: Yes Plan: Did well with dose reduction of Ambien last night. Will continue low dose of Ambien 2.5 mg qHS Continue Risperdal as needed for agitation. Provide for patient safety; fall precautions. (4) Normal pressure hydrocephalus Is this a current diagnosis for this admission?: Yes Plan: Possibly a contributor to his current mental status, however, it was noted on previous imaging from 2011. Consider interventional radiology consult for LP versus supportive care. - Time Time Spent with patient: 15-24 minutes Anticipated discharge: SNF - Short term rehab Within: within 24 hours
[2017-06-27] MEDS: SIMVASTATIN 10 MG TABLET PO SCH (18:09)
[2017-06-27] MEDS ORDERED: FLUTICASONE NASAL SPRAY 50 MCG/SPRY 120 SPRAY/16 GM NASL ONE (20:45)
[2017-06-27] MEDS ORDERED: NICOTINE 21 MG/24 HR PATCH.TD24 TD ONE (20:45)
[2017-06-27] MEDS ORDERED: NICOTINE 21 MG/24 HR PATCH.TD24 ONE (21:30)
[2017-06-27] MEDS ORDERED: FLUTICASONE NASAL SPRAY 50 MCG/SPRY 120 SPRAY/16 GM ONE (21:31)
[2017-06-27] MEDS ORDERED: MORPHINE SULFATE 10 MG/ML INJ IV ONE (21:56)
[2017-06-27] MEDS ORDERED: FUROSEMIDE INJ/PF 40 MG/4 ML SDV IV ONE (21:56)
[2017-06-27] MEDS ORDERED: LORAZEPAM INJ 2 MG/1 ML VIAL IV ONE (21:57)
[2017-06-27] MEDS: RISPERIDONE 0.25 MG TABLET PO SCH (23:52)
[2017-06-27] MEDS: LORAZEPAM 1 MG TABLET PO SCH (23:52)
[2017-06-28 00:02] LABS: ARTERIAL BLOOD BASE EXCESS 4.6 mmol/L; ARTERIAL BLOOD H2CO3 1.61 mmol/L (1.05-1.35); ARTERIAL BLOOD HCO3 31.1 mmol/L (20-26); ARTERIAL BLOOD O2 SATURATION 98.8 % (94-98); ARTERIAL BLOOD PCO2 53.5 mmHg (35-45); ARTERIAL BLOOD PH 7.38 (7.35-7.45); ARTERIAL BLOOD PO2 146.2 mmHg (80-100); ARTERIAL BLOOD TOTAL CO2 32.7 mmol/L (23-27)
[2017-06-28 00:07] LABS: ARTERIAL BLOOD FIO2 100%
[2017-06-28] MEDS ORDERED: METOPROLOL TARTRATE PF/INJ 5 MG/5 ML SDV IV ONE ×2 (00:17→00:22)
[2017-06-28] MEDS ORDERED: HYDRALAZINE HCL INJ/PF 20 MG/1 ML SDV IV PRN (00:17)
[2017-06-28 01:13] LABS: CREATINE KINASE MB 4.99 ng/mL (<4.55); TROPONIN I 0.081 ng/mL
[2017-06-28] MEDS: IPRATROPIUM/ALBUTEROL 0.5-2.5 MG/3 ML AMPUL NEB SCH ×4 (02:27→20:51)
[2017-06-28] MEDS: HEPARIN SOD (PORCINE) 5,000 UNIT/ML 1 ML SYRINGE SUBCUT SCH (05:42)
[2017-06-28] MEDS ORDERED: DEXTROSE 50%-WATER 25 GM/50 ML DISP.SYRIN IV PRN ×2 (06:19)
[2017-06-28] MEDS ORDERED: GLUCAGON,HUMAN RECOMB 1 MG INJ SUBCUT PRN (06:19)
[2017-06-28] MEDS ORDERED: DEXTROSE 40% GEL 15 GM TUBE PO PRN ×2 (06:19)
[2017-06-28 06:43] LABS: ARTERIAL BLOOD H2CO3 4.51 mmol/L (1.05-1.35); ARTERIAL BLOOD HCO3 39.2 mmol/L (20-26); ARTERIAL BLOOD O2 SATURATION 95.6 % (94-98); ARTERIAL BLOOD PO2 118.5 mmHg (80-100); ARTERIAL BLOOD TOTAL CO2 43.8 mmol/L (23-27)
[2017-06-28 06:46] LABS: HEMATOCRIT 43.4 % (37.9-51.0); HEMOGLOBIN 14.5 g/dL (13.5-17.0); MEAN CORPUSCULAR HEMOGLOBIN 32.9 pg (27.0-33.4); MEAN CORPUSCULAR HGB CONC 33.4 g/dL (32.0-36.0); MEAN CORPUSCULAR VOLUME 99 fl (80-97); PLATELET COUNT 201 10^3/uL (150-450); RED CELL DISTRIBUTION WIDTH 13.1 % (11.5-14.0)
[2017-06-28 06:51] LABS: ARTERIAL BLOOD FIO2 100%
[2017-06-28 06:54] LABS: ARTERIAL BLOOD PCO2 149.7 mmHg (35-45); ARTERIAL BLOOD PH 7.04 (7.35-7.45)
[2017-06-28] MEDS ORDERED: PHARMACY COMMUNICATION ORDER MC NR (07:00)
[2017-06-28] MEDS ORDERED: PROPOFOL INJ 200 MG/20 ML VIAL IV ONE (07:26)
[2017-06-28] MEDS ORDERED: MAG HYDROX/AL HYDROX/SIMETH SUSP 30 ML UDCUP NG PRN (07:30)
[2017-06-28] MEDS ORDERED: LORAZEPAM INJ 2 MG/1 ML VIAL IV SCH (08:00)
[2017-06-28] MEDS ORDERED: DEXTROSE 40% GEL 15 GM TUBE NG PRN ×2 (08:00)
[2017-06-28] MEDS: PROPOFOL 100 ML IV PRN ×3 (08:10→22:33)
--- NOTE | 2017-06-28 08:13 | RADIOLOGY REPORT (SQ) ---
EXAM DESCRIPTION: CHEST SINGLE VIEW COMPLETED DATE/TIME: 06/28/2017 7:41 am REASON FOR STUDY: intubation COMPARISON: 06/25/2017. FINDINGS: Single-view portable AP upright chest timed approximately 0731 hours. Appropriate endotracheal and nasogastric tubes. Chronic areas of scar and apical pleural thickening. Shifting infiltrates with improved aeration left lung, patchy infiltrate now in the right base. IMPRESSION: 1. Appropriate support lines and tubes. Shifting pulmonary infiltrates. TECHNICAL DOCUMENTATION: JOB ID: [id number]
--- NOTE | 2017-06-28 08:13 | RADIOLOGY REPORT (SQ) ---
EXAM DESCRIPTION: KUB/ABDOMEN (SINGLE VIEW) COMPLETED DATE/TIME: 06/28/2017 7:42 am REASON FOR STUDY: NGT placement COMPARISON: None. FINDINGS: Single-view abdomen, AP portable upright timed approximately 0733 hours. Distal aspect of the nasogastric tube lies appropriately within the stomach. Nonobstructive bowel gas pattern. IMPRESSION: Appropriate NG tube. TECHNICAL DOCUMENTATION: JOB ID: [id number]
[2017-06-28 08:15] LABS: ANION GAP 7 (5-19); BLOOD UREA NITROGEN 18 mg/dL (7-20); CARBON DIOXIDE 34 mmol/L (22-30); CHLORIDE 98 mmol/L (98-107); GLUCOSE 201 mg/dL (75-110); POTASSIUM 4.4 mmol/L (3.6-5.0); SODIUM 139.2 mmol/L (137-145)
[2017-06-28] MEDS ORDERED: VANCOMYCIN HCL 0 MG in DEXTROSE 5%-WATER 250 ML IV NR (08:15)
[2017-06-28] MEDS: NORMAL SALINE 1000 ML 1,000 ML IV PRN (09:00)
[2017-06-28] MEDS ORDERED: VANCOMYCIN HCL 1,500 MG in DEXTROSE 5%-WATER 250 ML IV ONE (09:00)
[2017-06-28 09:02] LABS: ARTERIAL BLOOD BASE EXCESS -1.5 mmol/L; ARTERIAL BLOOD H2CO3 1.25 mmol/L (1.05-1.35); ARTERIAL BLOOD HCO3 23.7 mmol/L (20-26); ARTERIAL BLOOD O2 SATURATION 99.4 % (94-98); ARTERIAL BLOOD PCO2 41.4 mmHg (35-45); ARTERIAL BLOOD PH 7.38 (7.35-7.45); ARTERIAL BLOOD PO2 220.9 mmHg (80-100); ARTERIAL BLOOD TOTAL CO2 24.9 mmol/L (23-27)
[2017-06-28 09:04] LABS: ARTERIAL BLOOD FIO2 60%
[2017-06-28] MEDS ORDERED: NORMAL SALINE 1000 ML 1,000 ML IV ONE (09:30)
[2017-06-28] MEDS ORDERED: DOXYCYCLINE MONO 5 MG/ML SUSP 60 ML NG SCH (10:00)
[2017-06-28 10:01] LABS: CREATINE KINASE MB 10.6 ng/mL (<4.55)
[2017-06-28 10:08] LABS: TROPONIN I 1.6 ng/mL
[2017-06-28] MEDS: DOCUSATE SODIUM 100 MG CAPSULE PO SCH (10:16)
[2017-06-28] MEDS: FLUTICASONE NASAL SPRAY 50 MCG/SPRY 120 SPRAY/16 GM NASL SCH (10:16)
[2017-06-28] MEDS: NICOTINE 21 MG/24 HR PATCH.TD24 TD SCH (10:16)
[2017-06-28] MEDS: TAMSULOSIN HCL 0.4 MG CAP.SR.24H PO SCH (10:30)
[2017-06-28] MEDS: ASPIRIN 81 MG TABLET, CHEWABLE NG SCH (10:30)
[2017-06-28] MEDS: CHOLECALCIFEROL (D3) 1,000 UNIT TABLET NG SCH (10:30)
[2017-06-28] MEDS: LORATADINE 10 MG TABLET NG SCH (10:30)
[2017-06-28] MEDS: CEFEPIME 1 GM/D5W RTU 1 GM/50 ML RTUPB IV SCH ×2 (10:30→22:31)
[2017-06-28] MEDS ORDERED: CLOPIDOGREL BISULFATE 300 MG TABLET NG ONE (11:00)
[2017-06-28] MEDS: MIDAZOLAM 2 MG/2 ML INJ IV PRN (11:13)
--- NOTE | 2017-06-28 12:28 | RADIOLOGY REPORT (SQ) ---
EXAM DESCRIPTION: CHEST SINGLE VIEW COMPLETED DATE/TIME: 06/28/2017 11:37 am REASON FOR STUDY: CENTRAL LINE PLACEMENT COMPARISON: AP chest 06/28/2017, 06/15/2017, 02/24/2014 EXAM PARAMETERS: NUMBER OF VIEWS: One view. TECHNIQUE: Single frontal radiographic view of the chest acquired. RADIATION DOSE: NA LIMITATIONS: None. FINDINGS: Endotracheal tube tip 5 cm above the audelia. Nasogastric tube tip and side port below the hemidiaphragms. Right jugular central line tip superior vena cava. LUNGS AND PLEURA: There is persistent airspace disease in the right lower low superimposed on the ant erior right 5th rib. Minimal airspace disease left upper lobe superimposed on the anterior 3rd rib. This is stable compared to previous study. No pleural effusions. No pneumothorax. MEDIASTINUM AND HILAR STRUCTURES: No masses. Contour normal. HEART AND VASCULAR STRUCTURES: Heart normal in size. Normal vasculature. BONES: Osteopenic HARDWARE: As above OTHER: No other significant finding. IMPRESSION: Tubes and lines in good positioning. Persistent minimal airspace disease in the left upper lobe and right lower lung. TECHNICAL DOCUMENTATION: JOB ID: [id number] [employer]- All Rights Reserved
[2017-06-28 13:21] LABS: CREATINE KINASE MB 9.38 ng/mL (<4.55); TROPONIN I 1.47 ng/mL
--- NOTE | 2017-06-28 13:42 | PDOC PROGRESS REPORT ---
Subjective Progress Note for:: 06/28/17 Subjective:: The patient has an 82-year-old male with a past medical history of advanced Parkinson's with dementia and delirium who was admitted on 06/25/17 for worsening delirium and pneumonia. The patient appeared to be improving with conservative treatments but developed acute respiratory failure with hypercapnia requiring intubation early in the morning on 06/28/2017. The patient is seen on morning rounds; the patient is sedated, intubated and mechanically ventilated. Reason For Visit: PNEUMONIA,PARKINSON'S DISEASE DEMENTIA Physical Exam Vital Signs: Temp Pulse Resp BP Pulse Ox 99.5 F 81 22 H 74/44 L 95 06/28/17 12:44 06/28/17 12:23 06/28/17 12:44 06/28/17 12:44 06/28/17 12:44 Intake & Output 06/27/17 06/28/17 06/29/17 06:59 06:59 06:59 Intake Total 685 863 Output Total 230 150 Balance 685 633 -150 Weight 79 kg 75.5 kg General appearance: PRESENT: well-developed, well-nourished, other - Sedated Head exam: PRESENT: atraumatic, normocephalic Eye exam: ABSENT: scleral icterus Mouth exam: PRESENT: moist Neck exam: ABSENT: carotid bruit, JVD, lymphadenopathy, thyromegaly Respiratory exam: PRESENT: clear to auscultation luis, symmetrical, other - Intubated and mechanically ventilated. ABSENT: rales, rhonchi, wheezes Cardiovascular exam: PRESENT: RRR, +S1, +S2. ABSENT: diastolic murmur, rubs, systolic murmur Pulses: PRESENT: normal dorsalis pedis pul Vascular exam: PRESENT: normal capillary refill GI/Abdominal exam: PRESENT: normal bowel sounds, soft. ABSENT: distended, guarding, mass, organolmegaly, rebound, tenderness Rectal exam: PRESENT: deferred Extremities exam: PRESENT: full ROM. ABSENT: calf tenderness, clubbing, pedal edema Neurological exam: PRESENT: other - Sedated Psychiatric exam: ABSENT: homicidal ideation, suicidal ideation Skin exam: PRESENT: dry, intact, warm. ABSENT: cyanosis, rash Results Laboratory Results: 06/28/17 06:00 06/28/17 06:00 06/27/17 06/28/17 06/28/17 23:45 06:00 06:00 WBC 19.0 H RBC 4.40 Hgb 14.5 Hct 43.4 MCV 99 H MCH 32.9 MCHC 33.4 RDW 13.1 Plt Count 201 Carbonic Acid 1.61 H HCO3/H2CO3 Ratio 19:1 ABG pH 7.38 ABG pCO2 53.5 H ABG pO2 146.2 H ABG HCO3 31.1 H ABG O2 Saturation 98.8 H ABG Base Excess 4.6 FiO2 100% Sodium 139.2 Potassium 4.4 Chloride 98 Carbon Dioxide 34 H Anion Gap 7 BUN 18 Creatinine 0.91 Est GFR ( Amer) > 60 Est GFR (Non-Af Amer) > 60 Glucose 201 H Calcium 10.0 06/28/17 06/28/17 06:30 08:50 WBC RBC Hgb Hct MCV MCH MCHC RDW Plt Count Carbonic Acid 4.51 H 1.25 HCO3/H2CO3 Ratio 8:1 18:1 ABG pH 7.04 L* 7.38 ABG pCO2 149.7 H* 41.4 ABG pO2 118.5 H 220.9 H ABG HCO3 39.2 H 23.7 ABG O2 Saturation 95.6 99.4 H ABG Base Excess 3.0 -1.5 FiO2 100% 60% Sodium Potassium Chloride Carbon Dioxide Anion Gap BUN Creatinine Est GFR ( Amer) Est GFR (Non-Af Amer) Glucose Calcium 06/28/17 06/28/17 06/28/17 00:36 00:36 08:45 Creatine Kinase 337 H 275 H CK-MB (CK-2) 4.99 H Troponin I 0.081 06/28/17 08:45 Creatine Kinase CK-MB (CK-2) 10.60 H Troponin I 1.600 Impressions: Cervical Spine CT 06/25/17 14:27 IMPRESSION: CHRONIC DEGENERATIVE CHANGES. NO ACUTE FINDINGS. Head CT 06/25/17 14:27 IMPRESSION: CHRONIC CHANGES OF ATROPHY AND MICROVASCULAR ISCHEMIA. Again I cannot exclude a component of normal pressure hydrocephalus. No acute intracranial abnormalities are identified. Sinus disease as noted above. Other findings as noted above EVIDENCE OF ACUTE STROKE: NO. Chest X-Ray 06/28/17 00:00 IMPRESSION: Tubes and lines in good positioning. Persistent minimal airspace disease in the left upper lobe and right lower lung. KUB X-Ray 06/28/17 00:00 IMPRESSION: Appropriate NG tube. Assessment & Plan - Diagnosis (1) Pneumonia Qualifiers: Pneumonia type: due to unspecified organism Laterality: left Lung location: unspecified part of lung Qualified Code(s): J18.9 - Pneumonia, unspecified organism Is this a current diagnosis for this admission?: Yes Plan: Worsened; the patient is now septic and intubated. Initial blood cultures: No growth at 48 hours Sedated, intubated, and mechanically ventilated. He has been transferred to the ICU. Pulmonology has been consulted; appreciate Dr. Barnard's assistance and recommendations. Will scale up antibiotics to Vancomycin and Cefepime. Continue scheduled and as needed DuoNeb's. (2) Sepsis Qualifiers: Sepsis type: sepsis due to unspecified organism Qualified Code(s): A41.9 - Sepsis, unspecified organism Is this a current diagnosis for this admission?: Yes Plan: Blood cultures: No growth at 48 hours. Has received fluid volume resuscitation. Central line is placed to monitor CVP ; currently 13. Will provide pressor support as needed; Cardiology recommends Neosynephrine. Currently receiving Vancomycin and Cefepime. Remaining plan as above. (3) Non-STEMI (non-ST elevated myocardial infarction) Is this a current diagnosis for this admission?: Yes Plan: Likely a type II non-STEMI secondary to sepsis. Troponin noted to be 1.6 and now trending down. Cardiology has been consulted; appreciate their assistance and recommendations. The patient has been placed on full dose lovenox. Will continue ASA and start plavix. (4) Acute respiratory failure with hypercapnia Is this a current diagnosis for this admission?: Yes Plan: The patient developed acute respiratory failure with hypercapnia. He is now intubated and mechanically ventilated. Remaining plan as above. (5) Parkinson's disease dementia Qualifiers: Dementia behavioral disturbance: without behavioral disturbance Qualified Code(s): G20 - Parkinson's disease; F02.80 - Dementia in other diseases classified elsewhere without behavioral disturbance; F02.80 - Dementia in other diseases classified elsewhere without behavioral disturbance; F02.80 - Dementia in other diseases classified elsewhere without behavioral disturbance Is this a current diagnosis for this admission?: Yes Plan: Ativan discontinued. Versed is available as needed for sedation adjunct. Will initiate Sinemet. (6) SunDown syndrome Is this a current diagnosis for this admission?: Yes Plan: Plan as above. (7) Normal pressure hydrocephalus Is this a current diagnosis for this admission?: Yes Plan: Possibly a contributor to his current mental status, however, it was noted on previous imaging from 2011. Consider interventional radiology consult for LP versus supportive care. - Time Time Spent with patient: 35 or more minutes Medications reviewed and adjusted accordingly: Yes
[2017-06-28] MEDS ORDERED: SUCCINYLCHOLINE CHLORIDE INJ 200 MG/10 ML VIAL ONE (14:10)
[2017-06-28] MEDS: CARBIDOPA/LEVODOPA 25-100 MG TABLET NG SCH ×2 (14:50→22:34)
[2017-06-28] MEDS: DEXTROSE 5%-WATER 250 ML with PHENYLEPHRINE HCL 40 MG IV PRN ×4 (15:42→20:47)
--- NOTE | 2017-06-28 17:32 | Operative Report ---
Operative Report DATE OF SURGERY: 06/28/17 PREOPERATIVE DIAGNOSIS: Respiratory failure POSTOPERATIVE DIAGNOSIS: same OPERATION: 1. Focused ultrasound the right neck. 2. Ultrasound directed insertion of right IJ central line. SURGEON: EVELYN TORRES ANESTHESIA: Local TISSUE REMOVED OR ALTERED: None COMPLICATIONS: None ESTIMATED BLOOD LOSS: Scant INTRAOPERATIVE FINDINGS: Below PROCEDURE: Informed consent was obtained. The patient was placed in Trendelenburg the right neck and chest wall were exposed, and prepped and draped in a sterile fashion. Surgical plan and surgical timeout discussed. The right neck was anesthetized with 1% lidocaine without epinephrine. Using the variable frequency linear transducer, real time, a 18-gauge needle and wire were threaded into the right internal jugular vein. The tract was dilated up, the dilator removed, and the triple-lumen central venous access catheter was threaded into the right internal jugular vein uneventfully to the hub. There was excellent aspiration and flush of saline through all 3 lumens. The catheter was affixed to the skin with a Biopatch and 2-0 silk suture; sterile dressing applied. The patient tolerated the procedure well. There were no complications. Follow-up chest x-ray showed no pneumothorax right chest; tip of the catheter in superior vena cava.
--- NOTE | 2017-06-28 17:51 | XCELERA REPORT ---
[address] [address] Transthoracic Echocardiogram Report Name: MALIKA SINGH Age: 82 yrs Gender: Male : 1935 Patient Status: Inpatient Patient Location: ICU^[facility]^A Study Date: 06/28/2017 02:13 PM Height: 73 in Weight: 166 lb BSA: 2.0 m2 Procedure: A two-dimensional transthoracic echocardiogram with color flow Doppler was performed. The study was technically difficult with many images being suboptimal in quality. The study was technically limited with all images being suboptimal in quality. Reason For Study: NSTEMI History: NSTEMI. Ordering Physician: JADE MILLS Performed By: Yulia Latif Interpretation Summary A two-dimensional transthoracic echocardiogram with color flow Doppler was performed. The left ventricle is mildly to moderately dilated. There is normal left ventricular wall thickness. LV EF is 25% Left ventricular systolic function is severely reduced. Doppler measurements suggest impaired left ventricular relaxation, which is associated with grade I/IV or mild diastolic dysfunction In a setting of severe global hypokinesia there is severe hypokinesia to akinesia of the IV septum and Anteroseptum. The right ventricle is normal in size and function. The right atrium is normal. The left atrium is mildly dilated. There is no evidence of mitral valve prolapse. There is no mitral valve stenosis. There is a trace amount of mitral regurgitation The aortic valve is mildly calcified There is no aortic valvular vegetation. There is no aortic valve stenosis There is no LVOT obstruction. There is a moderate amount of aortic regurgitation There is no tricuspid stenosis. There is a mild amount of tricuspid regurgitation There is mild pulmonary hypertension by echo RVSP is 34 mm of Hg , with RA mean of 10. There is no pulmonic valvular stenosis. There is no pulmonic valvular regurgitation. There is no pericardial effusion. MMode/2D Measurements & Calculations RVDd: 1.4 cm LVIDd: 5.5 cm FS: 17.4 % Ao root diam: 3.5 cm IVSd: 1.0 cm LVIDs: 4.5 cm EDV(Teich): 144.9 ml LVPWd: 0.96 cm ESV(Teich): 92.9 ml Ao root area: 9.5 cm2 EF(Teich): 35.9 % LA dimension: 4.2 cm Doppler Measurements & Calculations MV E max lauren: MV P1/2t max lauren: Ao V2 max: AI max lauren: 51.3 cm/sec 53.8 cm/sec 178.4 cm/sec 425.3 cm/sec MV A max lauren: MV P1/2t: 98.1 msec Ao max PG: AI max P.5 cm/sec 12.7 mmHg 72.4 mmHg MV E/A: 0.66 MVA(P1/2t): 2.2 cm2 AI dec slope: MV dec slope: 160.7 cm/sec2 240.9 cm/sec2 MV dec time: AI P1/2t: 0.32 sec 517.0 msec LV V1 max PG: PA V2 max: TR max lauren: 4.3 mmHg 72.6 cm/sec 245.7 cm/sec LV V1 max: PA max P.1 mmHg TR max P.2 cm/sec 24.1 mmHg Left Ventricle The left ventricle is mildly to moderately dilated. There is normal left ventricular wall thickness. LV EF is 25%. Left ventricular systolic function is severely reduced. Doppler measurements suggest impaired left ventricular relaxation, which is associated with grade I/IV or mild diastolic dysfunction. In a setting of severe global hypokinesia there is severe hypokinesia to akinesia of the IV septum and Anteroseptum. There is no thrombus. There is no ventricular septal defect visualized. Right Ventricle The right ventricle is normal in size and function. Atria The right atrium is normal. The left atrium is mildly dilated. The interatrial septum is intact with no evidence for an atrial septal defect. Mitral Valve There is no evidence of mitral valve prolapse. There is no vegetation seen on the mitral valve. There is no mitral valve stenosis. There is a trace amount of mitral regurgitation. Aortic Valve The aortic valve is mildly calcified. There is no aortic valvular vegetation. There is no aortic valve stenosis. There is no LVOT obstruction. There is a moderate amount of aortic regurgitation. Tricuspid Valve There is no tricuspid stenosis. There is a mild amount of tricuspid regurgitation. There is mild pulmonary hypertension by echo. RVSP is 34 mm of Hg , with RA mean of 10. Pulmonic Valve There is no pulmonic valvular stenosis. There is no pulmonic valvular regurgitation. Great Vessels The aortic root is not well visualized but is probably normal size. Effusions There is no pericardial effusion. : JADE MILLS > Jade Mills
--- NOTE | 2017-06-28 18:02 | PDOC CONSULTATION ---
Consultation Consult Date: 06/28/17 Attending physician:: STEPHANY ZIMMERMAN Consult reason:: acute/chronic resp failure History of Present Illness Admission Date/PCP: 06/26/17 14:51 ARIE SMITH DO History of Present Illness: MALIKA SINGH is a 82 year old male with a past medical history of advanced Parkinson's with dementia and delirium, presents with worsening delirium, falls and shortness of breath and cough. In the emergency room he is found to have a CT of the head suggesting normal pressure hydrocephalus which is present from 2011 and left upper lobe infiltrate suggestive of pneumonia. He is started on empiric antibiotics referred to the hospitalist for admission. Family admits severe sundowning and agitation requiring sedation. He subsequently had an [employer] on the floor and was taken to the ICU where he was intubated Past Medical History Cardiac Medical History: Reports: Hyperlipidema, Hypertension Denies: Coronary Artery Disease, Myocardial Infarction Pulmonary Medical History: Reports: Pneumonia - "years ago" Denies: Asthma, Bronchitis, Chronic Obstructive Pulmonary Disease (COPD), Tuberculosis EENT Medical History: Reports: None Neurological Medical History: Reports: None Denies: Migraine, Seizures Endocrine Medical History: Reports: None GI Medical History: Reports: Gastroesophageal Reflux Disease, Hiatal Hernia Musculoskeltal Medical History: Denies: Arthritis Psychiatric Medical History: Reports: Depression Hematology: Denies: Anemia Past Surgical History Past Surgical History: Reports: Appendectomy, Cholecystectomy, Orthopedic Surgery - left leg and left wrist Social History Lives with: Family Smoking Status: Never Smoker Number of Years Smokin Last Time Smoked: 1996 Frequency of Alcohol Use: None Hx Recreational Drug Use: No Hx Prescription Drug Abuse: No - Advance Directive Resuscitation Status: Do Not Resuscitate Family History Family History: None Parental Family History Reviewed: No Children Family History Reviewed: No Sibling(s) Family History Reviewed.: No Medication/Allergy Home Medications: Aspirin [Aspirin EC] 81 mg PO DAILY 06/25/17 Azithromycin [Zithromax 250 mg Tablet] 250 mg PO DAILY 06/25/17 Cholecalciferol (Vitamin D3) [Vitamin D3 1000 Unit Tablet] 1,000 unit PO DAILY 06/25/17 Donepezil HCl [Aricept] 10 mg PO QPM 06/25/17 Hydrochlorothiazide [Hydrodiuril 25 mg Tablet] 12.5 mg PO DAILY 06/25/17 Loratadine [Claritin] 10 mg PO DAILY 06/25/17 Lorazepam [Ativan 1 mg Tablet] 1 mg PO QAM 06/25/17 Lorazepam [Ativan 1 mg Tablet] 2 mg PO QHS 06/25/17 Nabumetone [Relafen] 1,000 mg PO QHS 06/25/17 Omeprazole 20 mg PO DAILY 06/25/17 Simvastatin [Zocor 20 mg Tablet] 20 mg PO QPM 06/25/17 Tamsulosin HCl [Flomax 0.4 mg Cap.sr] 0.4 mg PO DAILY 06/25/17 Zolpidem Tartrate [Ambien 5 mg Tablet] 5 mg PO QHS 06/25/17 Allergies/Adverse Reactions: No Known Allergies Allergy (Verified 03/07/13 10:47) Review of Systems ROS unobtainable: Due to endotracheal tube, Due to mental status Physical Exam Vital Signs: Temp Pulse Resp BP Pulse Ox 97.3 F 90 24 H 90/56 L 98 06/28/17 08:00 06/28/17 08:57 06/28/17 08:57 06/28/17 08:00 06/28/17 08:57 Intake & Output 06/27/17 06/28/17 06/29/17 06:59 06:59 06:59 Intake Total 685 863 Output Total 230 Balance 685 633 Weight 79 kg 75.5 kg General appearance: PRESENT: no acute distress, disheveled, well-developed. ABSENT: cooperative, mild distress, morbidly obese, obese, severe distress Head exam: PRESENT: atraumatic, normocephalic Eye exam: PRESENT: conjunctiva pale. ABSENT: conjunctival injection, conjunctiva pink, EOMI, nystagmus, periorbital swelling, scleral icterus Mouth exam: PRESENT: dry mucosa, neck supple, tongue midline, other - ET tube intact. ABSENT: laceration, moist Neck exam: ABSENT: carotid bruit, JVD, lymphadenopathy, thyromegaly, tracheal deviation, tracheostomy Respiratory exam: PRESENT: decreased breath sounds, prolonged expiratory phas, rales, rhonchi, symmetrical, unlabored. ABSENT: accessory muscle use, chest wall tenderness, clear to auscultation luis, crackles, retraction, stridor, tachypnea Cardiovascular exam: PRESENT: RRR, +S1, +S2 Pulses: PRESENT: normal radial pulses GI/Abdominal exam: PRESENT: diminished bowel sounds, soft Gentrourinary exam: PRESENT: indwelling catheter Extremities exam: ABSENT: clubbing, joint swelling Musculoskeletal exam: ABSENT: ambulatory, deformity, dislocation Neurological exam: ABSENT: alert, awake Skin exam: PRESENT: dry, warm Results Laboratory Results: 06/28/17 06:00 06/28/17 06:00 06/27/17 06/28/17 06/28/17 23:45 06:00 06:00 WBC 19.0 H RBC 4.40 Hgb 14.5 Hct 43.4 MCV 99 H MCH 32.9 MCHC 33.4 RDW 13.1 Plt Count 201 Carbonic Acid 1.61 H HCO3/H2CO3 Ratio 19:1 ABG pH 7.38 ABG pCO2 53.5 H ABG pO2 146.2 H ABG HCO3 31.1 H ABG O2 Saturation 98.8 H ABG Base Excess 4.6 FiO2 100% Sodium 139.2 Potassium 4.4 Chloride 98 Carbon Dioxide 34 H Anion Gap 7 BUN 18 Creatinine 0.91 Est GFR ( Amer) > 60 Est GFR (Non-Af Amer) > 60 Glucose 201 H Calcium 10.0 06/28/17 06/28/17 06:30 08:50 WBC RBC Hgb Hct MCV MCH MCHC RDW Plt Count Carbonic Acid 4.51 H 1.25 HCO3/H2CO3 Ratio 8:1 18:1 ABG pH 7.04 L* 7.38 ABG pCO2 149.7 H* 41.4 ABG pO2 118.5 H 220.9 H ABG HCO3 39.2 H 23.7 ABG O2 Saturation 95.6 99.4 H ABG Base Excess 3.0 -1.5 FiO2 100% 60% Sodium Potassium Chloride Carbon Dioxide Anion Gap BUN Creatinine Est GFR ( Amer) Est GFR (Non-Af Amer) Glucose Calcium 06/28/17 06/28/17 06/28/17 00:36 00:36 08:45 Creatine Kinase 337 H 275 H CK-MB (CK-2) 4.99 H Troponin I 0.081 Impressions: Cervical Spine CT 06/25/17 14:27 IMPRESSION: CHRONIC DEGENERATIVE CHANGES. NO ACUTE FINDINGS. Head CT 06/25/17 14:27 IMPRESSION: CHRONIC CHANGES OF ATROPHY AND MICROVASCULAR ISCHEMIA. Again I cannot exclude a component of normal pressure hydrocephalus. No acute intracranial abnormalities are identified. Sinus disease as noted above. Other findings as noted above EVIDENCE OF ACUTE STROKE: NO. Chest X-Ray 06/28/17 00:00 IMPRESSION: 1. Appropriate support lines and tubes. Shifting pulmonary infiltrates. KUB X-Ray 06/28/17 00:00 IMPRESSION: Appropriate NG tube. Assessment & Plan - Diagnosis (1) Acute respiratory failure with hypercapnia Is this a current diagnosis for this admission?: Yes Plan: Oxygenate and ventilate as required to protect against hypoxia and guard pH (2) Non-STEMI (non-ST elevated myocardial infarction) Is this a current diagnosis for this admission?: Yes Plan: As per cardiology (3) Parkinson's disease dementia Qualifiers: Dementia behavioral disturbance: without behavioral disturbance Qualified Code(s): G20 - Parkinson's disease; F02.80 - Dementia in other diseases classified elsewhere without behavioral disturbance; F02.80 - Dementia in other diseases classified elsewhere without behavioral disturbance; F02.80 - Dementia in other diseases classified elsewhere without behavioral disturbance Is this a current diagnosis for this admission?: Yes Plan: Sinemet per NGT (4) Pneumonia Qualifiers: Pneumonia type: due to unspecified organism Laterality: left Lung location: upper lobe of lung Qualified Code(s): J18.1 - Lobar pneumonia, unspecified organism Is this a current diagnosis for this admission?: Yes Plan: Empiric therapy no specific organism identified at this point (5) Sepsis Qualifiers: Sepsis type: sepsis due to unspecified organism Qualified Code(s): A41.9 - Sepsis, unspecified organism Is this a current diagnosis for this admission?: Yes - Time Total Critical Time (Minutes): 50
[2017-06-28] MEDS: SIMVASTATIN 10 MG TABLET NG SCH (18:46)
[2017-06-28 20:03] LABS: CREATINE KINASE MB 5.33 ng/mL (<4.55); TROPONIN I 1.55 ng/mL
[2017-06-28] MEDS ORDERED: LORAZEPAM 1 MG TABLET NG SCH (22:00)
[2017-06-28] MEDS ORDERED: RISPERIDONE 0.25 MG TABLET NG SCH (22:00)
[2017-06-28] MEDS: VANCOMYCIN HCL 1,000 MG in DEXTROSE 5%-WATER 250 ML IV SCH (22:31)
[2017-06-28] MEDS: ENOXAPARIN SODIUM INJ 80 MG/0.8 ML DISP.SYRIN SUBCUT SCH (22:32)
--- NOTE | 2017-06-28 23:30 | EKG REPORT ---
SEVERITY:- ABNORMAL ECG - SINUS RHYTHM LVH WITH SECONDARY REPOLARIZATION ABNORMALITY ANTERIOR Q WAVES, POSSIBLY DUE TO LVH : Confirmed by: Toribio Lieberman 28-Jun-2017 23:30:19
[2017-06-29 01:00] LABS: ABSOLUTE BASOPHILS # (AUTO) 0.1 10^3/uL (0.0-0.2); ABSOLUTE LYMPHOCYTES (AUTO) 1.6 10^3/uL (0.5-4.7); ABSOLUTE MONOCYTES (AUTO) 1.2 10^3/uL (0.1-1.4); ABSOLUTE NEUT (AUTO) 12.4 10^3/uL (1.7-8.2); BASOPHILS % (AUTO) 0.9 % (0-2); EOSINOPHILS % (AUTO) 0.2 % (0-6); HEMATOCRIT 32.1 % (37.9-51.0); LYMPHOCYTES % (AUTO) 10.5 % (13-45); MEAN CORPUSCULAR HEMOGLOBIN 33.1 pg (27.0-33.4); MEAN CORPUSCULAR HGB CONC 33.6 g/dL (32.0-36.0); MEAN CORPUSCULAR VOLUME 98 fl (80-97); MONOCYTES % (AUTO) 7.8 % (3-13); PLATELET COUNT 220 10^3/uL (150-450); RED BLOOD COUNT 3.27 10^6/uL (4.35-5.55); RED CELL DISTRIBUTION WIDTH 13.4 % (11.5-14.0); SEGMENTED NEUTROPHILS % (AUTO) 80.6 % (42-78); TOTAL CELLS COUNTED % (AUTO) 100 %; WHITE BLOOD COUNT 15.4 10^3/uL (4.0-10.5)
[2017-06-29 01:01] LABS: HEMOGLOBIN 10.8 g/dL (13.5-17.0)
[2017-06-29 01:21] LABS: ALANINE AMINOTRANSFERASE 19 U/L (21-72); ALBUMIN 2.6 g/dL (3.5-5.0); ALKALINE PHOSPHATASE 58 U/L (38-126); ASPARTATE AMINO TRANSFERASE 39 U/L (17-59); BILIRUBIN,DIRECT 0.5 mg/dL (0.0-0.4); BILIRUBIN,TOTAL 0.5 mg/dL (0.2-1.3); BLOOD UREA NITROGEN 33 mg/dL (7-20); CALCIUM 8.2 mg/dL (8.4-10.2); CHLORIDE 104 mmol/L (98-107); CHOLESTEROL 96.04 mg/dL (0-200); CREATINE KINASE 271 U/L (55-170); GLUCOSE 148 mg/dL (75-110); TOTAL PROTEIN 5.1 g/dL (6.3-8.2); TRIGLYCERIDES 105 mg/dL (<150)
[2017-06-29 01:24] LABS: CREATINE KINASE MB 4.65 ng/mL (<4.55)
[2017-06-29 01:29] LABS: TROPONIN I 1.24 ng/mL
[2017-06-29 01:32] LABS: DIRECT LDL 45 mg/dL (<100)
[2017-06-29 01:34] LABS: POTASSIUM 3.4 mmol/L (3.6-5.0)
[2017-06-29 01:41] LABS: ANION GAP 8 (5-19); CARBON DIOXIDE 27 mmol/L (22-30); SODIUM 139.3 mmol/L (137-145)
[2017-06-29] MEDS: DEXTROSE 5%-WATER 250 ML with PHENYLEPHRINE HCL 40 MG IV PRN ×8 (01:41→21:09)
[2017-06-29] MEDS: IPRATROPIUM/ALBUTEROL 0.5-2.5 MG/3 ML AMPUL NEB SCH ×4 (02:11→19:37)
[2017-06-29] MEDS: PROPOFOL 100 ML IV PRN ×4 (04:17→21:37)
--- NOTE | 2017-06-29 05:59 | CONSULTATION REPORT E ---
Consultation Report NAME: MALIKA SINGH : 1935 AGE: 82Y DATE: 06/28/2017 610 A TO: HOLDEN MILLS M.D. FROM: GUILHERME PERES M.D. Requesting Physician REASON FOR CONSULTATION: Elevated troponin I on a patient with respiratory failure. Note that the patient is intubated and sedated and no family is available. Hence, data is obtained from the patient's current and prior medical records. Note, the patient was seen at 4 p.m. and I was with the patient for 45 minutes with more than 50% of the time giving direct patient care and also increasing the patient's Raf-Synephrine to keep the patient's blood pressure up. HISTORY: The patient has a history of severe/advanced Parkinson's disease with dementia and delirium. Was admitted on 06/25/2017 with cough and shortness of breath and worsening delirium. He had a CT scan of the head which showed normal-pressure hydrocephalus which has been present from 2011 and left upper lobe infiltrate suggestive of pneumonia. His x-ray today shows also a right lower lobe pneumonia. The patient apparently was treated with antibiotics and was seemingly improving, but early this morning/late last night, the patient went into acute respiratory failure and had to be intubated, since the BiPAP did not work on the patient. The patient was also found to be hypotensive and after a central line was placed, the patient has been started on Raf-Synephrine, which is now increased to 120 mcg/minute. The patient's EKG shows sinus rhythm with LVH and with nonspecific, minor ST and T changes in the lateral leads. The patient's troponin which was 0.081 early this morning, came back at 1.60 with a positive CPK of 275 and 228, and a positive CPK MB of 10.60 and 9.38. Subsequent troponin has trended down to 1.470 and again has increased to 1.550. On examination at present, the patient appears to be comfortable and not fighting the ventilator. PAST MEDICAL HISTORY: Positive for history of hypertension and hyperlipidemia and a history of advanced Parkinson's disease. The patient does have sundowning and delirium, sometimes requiring sedation for his agitation. He has no history of COPD or tuberculosis. He has no history of migraine or seizures, no history of TIA or CVA, no history of diabetes mellitus or thyroid disease. He is a history of Giardia and hiatal hernia. PAST SURGICAL HISTORY: Positive for appendectomy, cholecystectomy, orthopedic surgery, left leg and left wrist surgery. SOCIAL HISTORY: The patient has never smoked, lives with his family. At present, the patient is a full code. His daughter is the surrogate healthcare decision maker. REVIEW OF SYSTEMS: Not obtainable due to the patient being intubated and sedated. Also, no family around. ALLERGIES: The patient has no known allergies. MEDICATIONS: Include: 1. Tylenol 650 mg per rectally q.4 hours p.r.n. 2. Aspirin 81 mg via NG tube daily. 3. Carbidopa/levodopa 1 tablet via NG tube q.8 hours. 4. Vitamin D3 1,000 units via the NG daily. 5. He did get Plavix 300 mg via the NG tube x1 and Plavix 75 mg daily. 6. He is on hypoglycemic protection with glucose 40% gel, 15 g and 30 g via the NG tube p.r.n. 7. Dextrose 50% 12.5 g and 25 g IV p.r.n. hypoglycemia. 8. Lovenox 75 mg subcutaneously q.12 hours. 9. Fluticasone propionate 2 sprays nasally daily. 10. Glucagon 1 mg subcutaneously p.r.n. hypoglycemia. 11. Hydralazine 10 mg IV q.6 hours p.r.n. 12. Ipratropium/albuterol 3 mL nebulizer treatment q.12 hours and p.r.n. and 3 mL nebulizer treatments q.6 hours. 13. Cefepime 1 g in 50 mL IV q.12 hours. 14. Phenylephrine, that is Raf-Synephrine at present 120 mcg/minute. 15. Propofol for sedation continuous IV. 16. Prevacid 15 mg via the NG tube q.6 a.m. 17. Claritin 10 mg via NG daily. 18. Magnesium hydroxide/aluminum hydroxide 30 mL via NG q.6 hours p.r.n. 19. He did get metoprolol 5 mg IV x1. 20. Midazolam/Versed 2 mg IV q.4 hours p.r.n. 21. Nicoderm transdermally 1 patch 21 mg per 24 hours daily. 22. Normal saline. He got a bolus of 1,000 mL and is on 150 mL per hour. 23. Simvastatin 20 mg via NG tube each evening. 24. Flomax 0.4 mg p.o. daily. 25. Vancomycin 1,500 mg IV piggyback x1 and 1,000 mg IV piggyback q.12 hours. EXAMINATION: GENERAL: The patient is intubated and sedated. There is no arrhythmia seen on the monitor. VITAL SIGNS: The patient's temperature is 100.4 degrees Fahrenheit, his pulse is 69 beats per minute, blood pressure 102/47, respirations 20 per minute, O2 sats are 95% on an FIO2 of 21% on a ventilator. HEENT: Head is atraumatic, normocephalic. Eyes: Pupils are equal, round, reactive to light. Ears: Tympanic membranes are intact. External auditory canals are clear. Nose: There is no deviation of the septum. There is no inflammation of the nares or mucous membranes. Mouth: Not examined. Tongue appears to be moist. SKIN: There are no skin rashes. There is no petechia or ecchymosis and no skin lesions. NECK: Supple. There is no JVD. Carotids are equal. There is no bruit. There is no lymphadenopathy. Trachea is central. There is no goiter. LUNGS: Show dry crackles in the left upper lobe and in the right lower lobe. There are no rales of CHF. HEART: S1 and S2 heard. There is no S3 gallop. There is no S4 gallop. There is a systolic murmur, left sternal border, in the apex. There is no rub. ABDOMEN: Soft, nontender. There is no hepatosplenomegaly. Bowel sounds are well heard. EXTREMITIES: Femorals are diminished. Leg pulses are diminished. There is no pedal edema. There is no DVT or cellulitis. There is no calf tenderness. CENTRAL NERVOUS SYSTEM: Not examined since the patient is intubated and sedated. PSYCHIATRIC: Not examined since the patient is intubated and sedated. DIAGNOSTIC STUDIES: The patient's EKG, as mentioned earlier, shows sinus rhythm with left ventricular hypertrophy, nonspecific minor changes in the lateral leads. No definite evidence of strain pattern. The patient's chest x-ray shows left upper lobe and right lower lobe pneumonia. The patient's echocardiogram shows the left ventricle is mildly to moderately dilated. There is no LVH. LV ejection fraction is 25%. Left ventricular systolic function is severely reduced. There is grade I by report or mild diastolic dysfunction in the setting of severe global hypokinesis, with severe hypokinesis to akinesis of the IV septum and anterior septum. The right ventricle is normal in size and function. The left atrium is mildly dilated. There is no evidence of mitral valve prolapse. There is no mitral stenosis. There is a trace amount of mitral regurgitation. There is no aortic valve stenosis with aortic sclerosis present. There is a moderate amount of artery present. The patient has a mild amount of tricuspid regurgitation. There is mild pulmonary hypertension by echo. Right ventricular systolic pressure is 34 mmHg with a right atrial mean of 10. There is no pericardial effusion. As mentioned earlier, his troponin which was indeterminate at 0.081, went up to 1.600, 1.470 and 1.550. His CPK was 275, 228 and 169. The CPK MB was 10.60, 9.38, and 5.33. The patient's sodium is 139.2, potassium 4.4, chloride is 98, CO2 is 34. The patient's BUN is 18, creatinine 0.91. GFR is greater than 60. Glucose is 201. Calcium is 10. The patient's white count is 19,000, hemoglobin is 14.5, hematocrit is 43.4, and the platelet count is 201,000. The patient's ProTime on admission was 16.8, INR was 1.28, PTT was 38.1. His ABG showed pH of 7.38, pCO2 is 41.4, pO2 is 220.9, and O2 sats are 99.4% on an FIO2 of 60%. The patient's Influenza A and Influenza B rapid exam is negative. The patient's urine opiate, urine methadone, urine barbiturate, urine phencyclidine, urine amphetamine, urine benzodiazepine, urine cocaine, and urine marijuana screen are all negative. IMPRESSION: 1. RESPIRATORY FAILURE SECONDARY TO PNEUMONIA AND PATIENT'S ADVANCED PARKINSON'S DISEASE. 2. HYPOTENSION SECONDARY TO SEPTIC, MOST LIKELY SEPTIC SHOCK REQUIRING PRESSORS TO KEEP THE BLOOD PRESSURE UP. 3. PNEUMONIA, RIGHT LOWER LOBE AND LEFT UPPER LOBE. 4. ELEVATED TROPONIN I SECONDARY TO RESPIRATORY FAILURE, PROBABLE HYPOXEMIA, HYPOTENSION SECONDARY TO SEPTIC SHOCK, AND PNEUMONIA. I would not read this as a [id number] myocardial infarction. This is type 2 myocardial infarction secondary to supply/demand mismatch. 5. CARDIOMYOPATHY WITH SEVERELY REDUCED LEFT VENTRICULAR EJECTION FRACTION WITH WALL MOTION ABNORMALITY SUGGESTIVE OF UNDERLYING ASYMPTOMATIC CORONARY ARTERY DISEASE WHICH HAS PROGRESSED TO SEVERELY REDUCED LEFT VENTRICULAR EJECTION FRACTION. 6. ADVANCED PARKINSON'S DISEASE. 7. HYPERTENSION. At present, blood pressure is low due to shock. 8. HYPERLIPIDEMIA. RECOMMENDATIONS: As mentioned, we will continue antibiotics, continue ventilator support, antibiotics, and respiratory treatments. Note that the patient's blood pressure is low and hence, cannot put the patient on a beta joana. Would recommend not treating the patient as a [id number] myocardial infarction and treat the patient as a type 2 myocardial infarction secondary to supply/demand mismatch. I would aggressively treat the patient with antibiotics. If the patient's blood pressure does fall again, would use vasopressin to get his blood pressure up. Note, 45 minutes spent on this patient, more than 50% of the time spent on direct patient care. The patient was seen initially at 12:30 p.m. and subsequently at 4:00 p.m. Formal consult done at 4:00 p.m., at which time 45 minutes were spent on this patient. Discussed with the attending physician on the case. Medications have been reviewed. Will talk to the hospitalist in the morning prior to stopping the patient's Plavix and full-dose Lovenox and put the patient on deep vein thrombosis prophylaxis doses of Lovenox. Also, would continue the patient on aspirin. Once the patient's blood pressure gets better, then would treat the patient with SUMIT inhibitor and a beta joana, long acting, in view of the patient's cardiomyopathy. Note that the patient is not a candidate for aggressive treatment in view of his advanced Parkinson's and dementia. Would treat the patient for both coronary artery disease and cardiomyopathy, but would not treat this episode as an acute coronary event. This is a type 2 myocardial infarction. Note, medications have been reviewed. Suggestions made to alter the treatment plan. Note, medical decision making is of high complexity. Although the note says Do Not Resuscitate, the patient's chart says that the patient is a Full Code. His daughter is the surrogate healthcare decision maker. Thanking you, DICTATING PHYSICIAN: HOLDEN MILLS M.D. [id number] PHY#: [id number] ID: [id number] JOB#: [id number] ACCT: [id number] cc:HOLDEN MILLS M.D. >
[2017-06-29] MEDS: CARBIDOPA/LEVODOPA 25-100 MG TABLET NG SCH ×3 (06:48→21:34)
[2017-06-29] MEDS: LANSOPRAZOLE 15 MG TAB.RAP.DR NG SCH (06:48)
[2017-06-29 08:12] LABS: ARTERIAL BLOOD BASE EXCESS 2.8 mmol/L; ARTERIAL BLOOD H2CO3 1.25 mmol/L (1.05-1.35); ARTERIAL BLOOD HCO3 27.2 mmol/L (20-26); ARTERIAL BLOOD O2 SATURATION 95.9 % (94-98); ARTERIAL BLOOD PCO2 41.5 mmHg (35-45); ARTERIAL BLOOD PH 7.44 (7.35-7.45); ARTERIAL BLOOD TOTAL CO2 28.5 mmol/L (23-27)
[2017-06-29 08:13] LABS: ARTERIAL BLOOD FIO2 ROOM AIR
[2017-06-29] MEDS: VANCOMYCIN HCL 1,000 MG in DEXTROSE 5%-WATER 250 ML IV SCH ×2 (09:46→21:34)
[2017-06-29] MEDS: ENOXAPARIN SODIUM INJ 80 MG/0.8 ML DISP.SYRIN SUBCUT SCH ×2 (09:47→21:36)
[2017-06-29] MEDS: POTASSI CL 20 MEQ/50 ML RIDER 20 MEQ/50 ML RTUPB IV SCH ×2 (09:47→11:14)
[2017-06-29] MEDS: CEFEPIME 1 GM/D5W RTU 1 GM/50 ML RTUPB IV SCH ×2 (09:48→21:35)
[2017-06-29] MEDS: ASPIRIN 81 MG TABLET, CHEWABLE NG SCH (09:48)
[2017-06-29] MEDS: CHOLECALCIFEROL (D3) 1,000 UNIT TABLET NG SCH (09:48)
[2017-06-29] MEDS: CLOPIDOGREL BISULFATE 75 MG TABLET PO SCH (09:48)
[2017-06-29] MEDS: LORATADINE 10 MG TABLET NG SCH (09:48)
[2017-06-29] MEDS: TAMSULOSIN HCL 0.4 MG CAP.SR.24H PO SCH (09:48)
[2017-06-29] MEDS: NICOTINE 21 MG/24 HR PATCH.TD24 TD SCH (09:50)
[2017-06-29] MEDS: FLUTICASONE NASAL SPRAY 50 MCG/SPRY 120 SPRAY/16 GM NASL SCH (09:50)
--- NOTE | 2017-06-29 11:23 | PDOC PROGRESS REPORT ---
Subjective Progress Note for:: 06/29/17 Subjective:: Patient about the same and has made some progress. There is no significant change in general condition. Patient remains intubated, sedated, patient however looks comfortable and in acute distress. Patient remains on Raf-Synephrine. Patient currently maintaining sinus rhythm. Medications reviewed. Reason For Visit: PNEUMONIA,PARKINSON'S DISEASE DEMENTIA Physical Exam Vital Signs: Temp Pulse Resp BP Pulse Ox 98.2 F 63 20 146/59 H 96 06/29/17 08:00 06/29/17 08:51 06/29/17 08:51 06/29/17 08:00 06/29/17 08:51 Intake & Output 06/28/17 06/29/17 06/30/17 06:59 06:59 06:59 Intake Total 863 6838 Output Total 230 1390 400 Balance 633 5448 -400 Weight 75.5 kg 73.4 kg Exam: GENERAL: well-nourished and in no acute distress. Patient is intubated and sedated. Orientation cannot be checked HEAD: Atraumatic, normocephalic. EYES: Pupils equal round and reactive to light, extraocular movements could not be checked, sclera anicteric, conjunctiva are normal. ENT: TMs normal, nares patent, oropharynx clear without exudates. Moist mucous membranes. No oral ulcerations or bleeding gums noted NECK: supple without lymphadenopathy or JVD. Trachea is central. No cervical or axillary lymphadenopathy noted. Carotids are 2+ LUNGS: Breath sounds mostly clear to auscultation patient is noted to have bibasal crackles at the extreme bases CHEST: Palpation of the chest wall shows no significant chest wall tenderness or abnormalities. HEART: [place] [facility], No PSH, 2/6 TABITHA aortic area, 1/6 law systolic murmur mitral area , no rubs or gallops. ABDOMEN: Soft, no significant tenderness appreciated, normoactive bowel sounds. No guarding, no rebound. No rigidity noted . No masses appreciated. EXTREMITIES: Pedal pulses are 1-2+, no calf tenderness noted, 1+ pedal edema noted. No clubbing or cyanosis. NEUROLOGICAL: The patient cannot participate in the neurological exam but no facial asymmetry noted. Extremities slightly hypotonic PSYCH: This cannot be evaluated. Patient cannot participate. SKIN: No significant ecchymosis, rash, or signs of pruritus noted. MUSCULOSKELETAL EXAM: No significant joint swelling noted. Patient cannot participate in musculoskeletal exam Results Laboratory Results: 06/29/17 00:50 06/29/17 00:50 06/29/17 06/29/17 06/29/17 00:50 00:50 08:00 WBC 15.4 H RBC 3.27 L Hgb 10.8 L D Hct 32.1 L MCV 98 H MCH 33.1 MCHC 33.6 RDW 13.4 Plt Count 220 Seg Neutrophils % 80.6 H Lymphocytes % 10.5 L Monocytes % 7.8 Eosinophils % 0.2 Basophils % 0.9 Absolute Neutrophils 12.4 H Absolute Lymphocytes 1.6 Absolute Monocytes 1.2 Absolute Eosinophils 0.0 Absolute Basophils 0.1 Carbonic Acid 1.25 HCO3/H2CO3 Ratio 21:1 ABG pH 7.44 ABG pCO2 41.5 ABG pO2 78.0 L ABG HCO3 27.2 H ABG O2 Saturation 95.9 ABG Base Excess 2.8 FiO2 ROOM AIR Sodium 139.3 Potassium 3.4 L D Chloride 104 Carbon Dioxide 27 Anion Gap 8 BUN 33 H Creatinine 1.02 Est GFR ( Amer) > 60 Est GFR (Non-Af Amer) > 60 Glucose 148 H Calcium 8.2 L Total Bilirubin 0.5 AST 39 ALT 19 L Alkaline Phosphatase 58 Total Protein 5.1 L Albumin 2.6 L Triglycerides 105 Cholesterol 96.04 LDL Cholesterol Direct 45 VLDL Cholesterol 21.0 HDL Cholesterol 32 L 06/28/17 06/28/17 06/28/17 00:36 00:36 08:45 Creatine Kinase 337 H 275 H CK-MB (CK-2) 4.99 H Troponin I 0.081 06/28/17 06/28/17 06/28/17 08:45 12:21 12:21 Creatine Kinase 228 H CK-MB (CK-2) 10.60 H 9.38 H Troponin I 1.600 1.470 06/28/17 06/28/17 06/29/17 19:15 19:15 00:50 Creatine Kinase 169 271 H CK-MB (CK-2) 5.33 H Troponin I 1.550 06/29/17 00:50 Creatine Kinase CK-MB (CK-2) 4.65 H Troponin I 1.240 EKG Comments: Telemetry strips shows sinus rhythm. No sustained tacky or bradycardia arrhythmias noted. Impressions: Cervical Spine CT 06/25/17 14:27 IMPRESSION: CHRONIC DEGENERATIVE CHANGES. NO ACUTE FINDINGS. Head CT 06/25/17 14:27 IMPRESSION: CHRONIC CHANGES OF ATROPHY AND MICROVASCULAR ISCHEMIA. Again I cannot exclude a component of normal pressure hydrocephalus. No acute intracranial abnormalities are identified. Sinus disease as noted above. Other findings as noted above EVIDENCE OF ACUTE STROKE: NO. Chest X-Ray 06/28/17 00:00 IMPRESSION: Tubes and lines in good positioning. Persistent minimal airspace disease in the left upper lobe and right lower lung. KUB X-Ray 06/28/17 00:00 IMPRESSION: Appropriate NG tube. Assessment & Plan - Diagnosis (1) Elevated troponin I level Is this a current diagnosis for this admission?: Yes (2) Non-STEMI (non-ST elevated myocardial infarction) Is this a current diagnosis for this admission?: Yes (3) Cardiomyopathy Qualifiers: Cardiomyopathy type: unspecified Qualified Code(s): I42.9 - Cardiomyopathy , unspecified Is this a current diagnosis for this admission?: Yes (4) Acute respiratory failure with hypercapnia Is this a current diagnosis for this admission?: Yes (5) Pneumonia Qualifiers: Pneumonia type: due to unspecified organism Laterality: left Lung location: upper lobe of lung Qualified Code(s): J18.1 - Lobar pneumonia, unspecified organism Is this a current diagnosis for this admission?: Yes (6) Sepsis Qualifiers: Sepsis type: sepsis due to unspecified organism Qualified Code(s): A41.9 - Sepsis, unspecified organism Is this a current diagnosis for this admission?: Yes (7) Parkinson's disease dementia Qualifiers: Dementia behavioral disturbance: without behavioral disturbance Qualified Code(s): G20 - Parkinson's disease; F02.80 - Dementia in other diseases classified elsewhere without behavioral disturbance; F02.80 - Dementia in other diseases classified elsewhere without behavioral disturbance; F02.80 - Dementia in other diseases classified elsewhere without behavioral disturbance Is this a current diagnosis for this admission?: Yes - Notes Notes: Elevated troponin I: Most likely related to supply demand mismatch from sepsis, pneumonia, hypoxemia, hypotension etc. EKGs are not showing any acute ST-T wave changes. Non-STEMI: Type II [place] related to supply demand mismatch and from metabolic reasons secondary to sepsis, hypoxemia, hypotension. Patient does have underlying coronary artery disease but EKGs has been normal and there is no obvious ongoing ischemia. Patient also has significant other comorbid diagnosis which makes him an unlikely candidate for any aggressive intervention. Cardiomyopathy: LVEF is severely reduced. Consider digoxin therapy. May consider SUMIT inhibitor/ARB/entresto therapy and beta blockers once blood pressure improves. Acute respiratory failure with hypercapnia: Most likely related to aspiration pneumonia. Continue ventilatory support and oxygen supplementation. Pneumonia: Based on infiltrate location, most likely aspiration. Continue antibiotic therapy with aspiration precaution later on. Currently patient is intubated providing airway protection. Sepsis: Currently needing Raf-Synephrine continue with it. May consider adding vasopressin if needed. Continue antibiotics and other supportive care. Parkinson's disease with dementia: This is usually a progressive disease with poor prognosis. Continue current supportive care. - Time Time with patient: Greater than 35 minutes - CODE STATUS was discussed, patient remains full code. Surrogate decision-maker unchanged. Multiple medical problems were addressed. More than 50% of the time spent coordinating care, discussing management plans with involved caregivers. Management plans discussed with involved personnels. Medical decision making was of moderate to high complexity, patient's has multiple comorbidities. Medications reviewed and adjusted accordingly: Yes
[2017-06-29] MEDS: NORMAL SALINE 1000 ML 1,000 ML IV PRN (12:44)
--- NOTE | 2017-06-29 13:33 | PDOC PROGRESS REPORT ---
Subjective Progress Note for:: 06/29/17 Subjective:: Patient is a 82-year-old male with a past medical history of advanced Parkinson' s disease with dementia and delirium admitted on 06/25/2017 with worsening delirium and pneumonia. Patient developed hypercapnic respiratory failure requiring intubation on 06/28/2017. Patient is currently intubated and sedated sedated on minimal vent settings. Patient appears stable. Reason For Visit: PNEUMONIA,PARKINSON'S DISEASE DEMENTIA Physical Exam Vital Signs: Temp Pulse Resp BP Pulse Ox 100.0 F 62 16 115/45 L 96 06/29/17 11:30 06/29/17 10:00 06/29/17 11:30 06/29/17 11:30 06/29/17 11:37 Intake & Output 06/28/17 06/29/17 06/30/17 06:59 06:59 06:59 Intake Total 863 6838 Output Total 230 1390 675 Balance 633 5448 -675 Weight 75.5 kg 73.4 kg General appearance: PRESENT: no acute distress, thin, well-nourished Head exam: PRESENT: normocephalic Eye exam: ABSENT: scleral icterus Ear exam: PRESENT: normal external ear exam Mouth exam: PRESENT: moist, other - ET tube in place Neck exam: ABSENT: carotid bruit, JVD, lymphadenopathy, thyromegaly Respiratory exam: PRESENT: clear to auscultation luis, other - intubated. ABSENT : rales, rhonchi, wheezes Cardiovascular exam: PRESENT: RRR. ABSENT: diastolic murmur, rubs, systolic murmur Pulses: PRESENT: normal dorsalis pedis pul Vascular exam: PRESENT: normal capillary refill GI/Abdominal exam: PRESENT: normal bowel sounds, soft. ABSENT: distended, guarding, mass, organolmegaly, rebound, tenderness Rectal exam: PRESENT: deferred Gentrourinary exam: PRESENT: indwelling catheter Extremities exam: PRESENT: full ROM. ABSENT: calf tenderness, clubbing, pedal edema Neurological exam: PRESENT: other - sedated. ABSENT: motor sensory deficit Psychiatric exam: ABSENT: homicidal ideation, suicidal ideation Skin exam: PRESENT: dry, intact, warm. ABSENT: cyanosis, rash Results Laboratory Results: 06/29/17 00:50 06/29/17 00:50 06/29/17 06/29/17 06/29/17 00:50 00:50 08:00 WBC 15.4 H RBC 3.27 L Hgb 10.8 L D Hct 32.1 L MCV 98 H MCH 33.1 MCHC 33.6 RDW 13.4 Plt Count 220 Seg Neutrophils % 80.6 H Lymphocytes % 10.5 L Monocytes % 7.8 Eosinophils % 0.2 Basophils % 0.9 Absolute Neutrophils 12.4 H Absolute Lymphocytes 1.6 Absolute Monocytes 1.2 Absolute Eosinophils 0.0 Absolute Basophils 0.1 Carbonic Acid 1.25 HCO3/H2CO3 Ratio 21:1 ABG pH 7.44 ABG pCO2 41.5 ABG pO2 78.0 L ABG HCO3 27.2 H ABG O2 Saturation 95.9 ABG Base Excess 2.8 FiO2 ROOM AIR Sodium 139.3 Potassium 3.4 L D Chloride 104 Carbon Dioxide 27 Anion Gap 8 BUN 33 H Creatinine 1.02 Est GFR ( Amer) > 60 Est GFR (Non-Af Amer) > 60 Glucose 148 H Calcium 8.2 L Total Bilirubin 0.5 AST 39 ALT 19 L Alkaline Phosphatase 58 Total Protein 5.1 L Albumin 2.6 L Triglycerides 105 Cholesterol 96.04 LDL Cholesterol Direct 45 VLDL Cholesterol 21.0 HDL Cholesterol 32 L 06/28/17 06/28/17 06/28/17 00:36 00:36 08:45 Creatine Kinase 337 H 275 H CK-MB (CK-2) 4.99 H Troponin I 0.081 06/28/17 06/28/17 06/28/17 08:45 12:21 12:21 Creatine Kinase 228 H CK-MB (CK-2) 10.60 H 9.38 H Troponin I 1.600 1.470 06/28/17 06/28/17 06/29/17 19:15 19:15 00:50 Creatine Kinase 169 271 H CK-MB (CK-2) 5.33 H Troponin I 1.550 06/29/17 00:50 Creatine Kinase CK-MB (CK-2) 4.65 H Troponin I 1.240 Impressions: Cervical Spine CT 06/25/17 14:27 IMPRESSION: CHRONIC DEGENERATIVE CHANGES. NO ACUTE FINDINGS. Head CT 06/25/17 14:27 IMPRESSION: CHRONIC CHANGES OF ATROPHY AND MICROVASCULAR ISCHEMIA. Again I cannot exclude a component of normal pressure hydrocephalus. No acute intracranial abnormalities are identified. Sinus disease as noted above. Other findings as noted above EVIDENCE OF ACUTE STROKE: NO. Chest X-Ray 06/28/17 00:00 IMPRESSION: Tubes and lines in good positioning. Persistent minimal airspace disease in the left upper lobe and right lower lung. KUB X-Ray 06/28/17 00:00 IMPRESSION: Appropriate NG tube. Assessment & Plan - Diagnosis (1) Acute respiratory failure with hypercapnia Is this a current diagnosis for this admission?: Yes Plan: Possibly secondary to pneumonia. Patient has a left upper lobe and right lower lobe pneumonia. Patient currently intubated and blood gases are significantly improved. Pulmonary is following closely. Extubation per pulmonary recommendations. (2) Non-STEMI (non-ST elevated myocardial infarction) Is this a current diagnosis for this admission?: Yes Plan: She would type II [place] most likely due to his pneumonia and sepsis. Troponin is trending down. Cardiology was consulted. No aggressive intervention at this time due to patient's advanced Parkinson's disease with dementia. Patient is on aspirin, Plavix, statin, full dose Lovenox however no beta-joana is being used due to patient's hypotension. Patient is in fact full code now but was a DNR previously. (3) Normal pressure hydrocephalus Is this a current diagnosis for this admission?: Yes Plan: Could contribute to some of patient's mentation. May consider intervention however not while patient is fully anticoagulated. At this time supportive care may be more appropriate. (4) Parkinson's disease dementia Qualifiers: Dementia behavioral disturbance: without behavioral disturbance Qualified Code(s): G20 - Parkinson's disease; F02.80 - Dementia in other diseases classified elsewhere without behavioral disturbance; F02.80 - Dementia in other diseases classified elsewhere without behavioral disturbance; F02.80 - Dementia in other diseases classified elsewhere without behavioral disturbance Is this a current diagnosis for this admission?: Yes Plan: Continue Sinemet and as needed Versed. No Ativan is being given at this time. (5) Pneumonia Qualifiers: Pneumonia type: due to unspecified organism Laterality: left Lung location: upper lobe of lung Qualified Code(s): J18.1 - Lobar pneumonia, unspecified organism Is this a current diagnosis for this admission?: Yes Plan: Currently on cefepime and vancomycin and as needed nebulizers. Patient is currently intubated as a complication of his pneumonia. Dr. Curseen pulmonary is consulted and followed closely. Patient is currently in ICU. (6) Sepsis Qualifiers: Sepsis type: sepsis due to unspecified organism Qualified Code(s): A41.9 - Sepsis, unspecified organism Is this a current diagnosis for this admission?: Yes Plan: Patient with sepsis evidenced by hypotension, fever, leukocytosis with the source being pneumonia. Patient receiving volume resuscitation with normal saline. Patient is being treated with vancomycin cefepime. There is no growth on blood cultures. Vasopressin as needed for hypotension as recommended by cardiology. (7) SunDown syndrome Is this a current diagnosis for this admission?: Yes Plan: Patient is currently sedated. - Time Time Spent with patient: Less than 15 minutes Anticipated discharge: SNF Within: within 72 hours - Inpatient Certification Medical Necessity: Significant Comorbidiites Make Outpatient Treatment Too Risky , Need Close Monitoring Due to Risk of Patient Decompensation - Patient is currently intubated and sedated. Patient pending extubation and improvement of pneumonia., Need for IV Antibiotics
[2017-06-29] MEDS: SIMVASTATIN 10 MG TABLET NG SCH (18:20)
--- NOTE | 2017-06-29 19:26 | Progress Note ---
Provider Note Provider Note: Patient family has decided to change patient's CODE STATUS back to DNR.
[2017-06-30] MEDS: PROPOFOL 100 ML IV PRN ×2 (01:59→06:00)
[2017-06-30] MEDS: NORMAL SALINE 1000 ML 1,000 ML IV PRN ×2 (02:00→10:45)
[2017-06-30] MEDS: IPRATROPIUM/ALBUTEROL 0.5-2.5 MG/3 ML AMPUL NEB SCH ×4 (02:02→19:38)
[2017-06-30 05:44] LABS: ABSOLUTE BASOPHILS # (AUTO) 0.1 10^3/uL (0.0-0.2); ABSOLUTE EOSINOPHILS # (AUTO) 0.1 10^3/uL (0.0-0.6); ABSOLUTE LYMPHOCYTES (AUTO) 1.4 10^3/uL (0.5-4.7); ABSOLUTE MONOCYTES (AUTO) 0.7 10^3/uL (0.1-1.4); ABSOLUTE NEUT (AUTO) 5.2 10^3/uL (1.7-8.2); EOSINOPHILS % (AUTO) 1.7 % (0-6); HEMATOCRIT 30.4 % (37.9-51.0); HEMOGLOBIN 10.4 g/dL (13.5-17.0); LYMPHOCYTES % (AUTO) 18.3 % (13-45); MEAN CORPUSCULAR HEMOGLOBIN 33.7 pg (27.0-33.4); MEAN CORPUSCULAR VOLUME 99 fl (80-97); MONOCYTES % (AUTO) 9.8 % (3-13); PLATELET COUNT 220 10^3/uL (150-450); RED BLOOD COUNT 3.08 10^6/uL (4.35-5.55); RED CELL DISTRIBUTION WIDTH 13.5 % (11.5-14.0); SEGMENTED NEUTROPHILS % (AUTO) 69.2 % (42-78); TOTAL CELLS COUNTED % (AUTO) 100 %; WHITE BLOOD COUNT 7.5 10^3/uL (4.0-10.5)
[2017-06-30 05:47] LABS: ARTERIAL BLOOD BASE EXCESS 2.3 mmol/L; ARTERIAL BLOOD H2CO3 1.16 mmol/L (1.05-1.35); ARTERIAL BLOOD HCO3 26.3 mmol/L (20-26); ARTERIAL BLOOD PCO2 38.4 mmHg (35-45); ARTERIAL BLOOD PH 7.45 (7.35-7.45); ARTERIAL BLOOD PO2 77.2 mmHg (80-100); ARTERIAL BLOOD TOTAL CO2 27.4 mmol/L (23-27)
[2017-06-30 05:48] LABS: ARTERIAL BLOOD FIO2 21%
[2017-06-30] MEDS: DEXTROSE 5%-WATER 250 ML with PHENYLEPHRINE HCL 40 MG IV PRN ×2 (06:00)
[2017-06-30] MEDS: LANSOPRAZOLE 15 MG TAB.RAP.DR NG SCH (06:00)
[2017-06-30] MEDS: CARBIDOPA/LEVODOPA 25-100 MG TABLET NG SCH ×3 (06:00→21:44)
[2017-06-30 06:08] LABS: ANION GAP 7 (5-19); BLOOD UREA NITROGEN 18 mg/dL (7-20); CALCIUM 8.2 mg/dL (8.4-10.2); CARBON DIOXIDE 26 mmol/L (22-30); CHLORIDE 112 mmol/L (98-107); GLUCOSE 107 mg/dL (75-110); MAGNESIUM 1.9 mg/dL (1.6-2.3); PHOSPHORUS 2.7 mg/dL (2.5-4.5); POTASSIUM 3.6 mmol/L (3.6-5.0); SODIUM 145.1 mmol/L (137-145)
--- NOTE | 2017-06-30 06:46 | RADIOLOGY REPORT (SQ) ---
EXAM DESCRIPTION: CHEST SINGLE VIEW CLINICAL HISTORY: intubated pt COMPARISON: 06/28/2017 FINDINGS: Single frontal view of the chest. Endotracheal tube with tip at the level of the clavicles. Right IJ central venous catheter with tip in the high right atrium. NG tube with tip below the diaphragm. No pneumothorax. Apical pleural thickening. No significant interval change in right basilar and left perihilar opacities. No acute osseous abnormalities. Upper abdominal soft tissues are unremarkable. IMPRESSION: 1. No significant interval change.
[2017-06-30] MEDS: CLOPIDOGREL BISULFATE 75 MG TABLET PO SCH (10:34)
[2017-06-30] MEDS: ASPIRIN 81 MG TABLET, CHEWABLE NG SCH (10:34)
[2017-06-30] MEDS: TAMSULOSIN HCL 0.4 MG CAP.SR.24H PO SCH (10:34)
[2017-06-30] MEDS: CHOLECALCIFEROL (D3) 1,000 UNIT TABLET NG SCH (10:34)
[2017-06-30] MEDS: CEFEPIME 1 GM/D5W RTU 1 GM/50 ML RTUPB IV SCH ×2 (10:34→21:40)
[2017-06-30] MEDS: LORATADINE 10 MG TABLET NG SCH (10:34)
[2017-06-30] MEDS: VANCOMYCIN HCL 1,000 MG in DEXTROSE 5%-WATER 250 ML IV SCH ×2 (10:34→21:40)
[2017-06-30] MEDS: ENOXAPARIN SODIUM INJ 80 MG/0.8 ML DISP.SYRIN SUBCUT SCH ×2 (10:35→21:42)
[2017-06-30] MEDS: FLUTICASONE NASAL SPRAY 50 MCG/SPRY 120 SPRAY/16 GM NASL SCH (10:35)
[2017-06-30] MEDS: NICOTINE 21 MG/24 HR PATCH.TD24 TD SCH (10:35)
--- NOTE | 2017-06-30 14:20 | PDOC PROGRESS REPORT ---
Subjective Progress Note for:: 06/30/17 Subjective:: Patient is a 82-year-old male with a past medical history of advanced Parkinson' s disease with dementia and delirium admitted on 06/25/2017 with worsening delirium and pneumonia. Patient developed hypercapnic respiratory failure requiring intubation on 06/28/2017. Patient is currently intubated and sedated sedated on minimal vent settings. Patient appears stable. Patient awake. Plan is to possibly extubate today. Family has decided to make a patient a DNR. Reason For Visit: PNEUMONIA,PARKINSON'S DISEASE DEMENTIA Physical Exam Vital Signs: Temp Pulse Resp BP Pulse Ox 99.5 F 76 20 122/48 L 100 06/30/17 12:00 06/30/17 12:20 06/30/17 12:20 06/30/17 12:20 06/30/17 12:20 Intake & Output 06/29/17 06/30/17 07/01/17 06:59 06:59 06:59 Intake Total 6838 4862 Output Total 1390 2575 520 Balance 5448 2287 -520 Weight 73.4 kg 74.8 kg General appearance: PRESENT: no acute distress, thin, well-developed, well- nourished Head exam: PRESENT: normocephalic Eye exam: PRESENT: EOMI. ABSENT: scleral icterus Ear exam: PRESENT: normal external ear exam Mouth exam: PRESENT: moist Neck exam: ABSENT: carotid bruit, JVD, lymphadenopathy, thyromegaly Respiratory exam: PRESENT: clear to auscultation luis, other - intubated. ABSENT : rales, rhonchi, wheezes Cardiovascular exam: PRESENT: RRR. ABSENT: diastolic murmur, rubs, systolic murmur GI/Abdominal exam: PRESENT: normal bowel sounds, soft. ABSENT: distended, guarding, mass, organolmegaly, rebound, tenderness Rectal exam: PRESENT: deferred Gentrourinary exam: PRESENT: indwelling catheter Extremities exam: PRESENT: full ROM. ABSENT: calf tenderness, clubbing, pedal edema Neurological exam: PRESENT: alert, awake. ABSENT: motor sensory deficit Psychiatric exam: PRESENT: appropriate affect, normal mood. ABSENT: homicidal ideation, suicidal ideation Skin exam: PRESENT: dry, intact, warm. ABSENT: cyanosis, rash Results Laboratory Results: 06/30/17 05:25 06/30/17 09:50 06/30/17 06/30/17 06/30/17 05:25 05:25 05:25 WBC 7.5 RBC 3.08 L Hgb 10.4 L Hct 30.4 L MCV 99 H MCH 33.7 H MCHC 34.0 RDW 13.5 Plt Count 220 Seg Neutrophils % 69.2 Lymphocytes % 18.3 Monocytes % 9.8 Eosinophils % 1.7 Basophils % 1.0 Absolute Neutrophils 5.2 Absolute Lymphocytes 1.4 Absolute Monocytes 0.7 Absolute Eosinophils 0.1 Absolute Basophils 0.1 Carbonic Acid 1.16 HCO3/H2CO3 Ratio 22:1 ABG pH 7.45 ABG pCO2 38.4 ABG pO2 77.2 L ABG HCO3 26.3 H ABG O2 Saturation 96.0 ABG Base Excess 2.3 FiO2 21% Sodium 145.1 H Potassium 3.6 Chloride 112 H Carbon Dioxide 26 Anion Gap 7 BUN 18 Creatinine 0.81 Est GFR ( Amer) > 60 Est GFR (Non-Af Amer) > 60 Glucose 107 Calcium 8.2 L Phosphorus 2.7 Magnesium 1.9 06/30/17 09:50 WBC RBC Hgb Hct MCV MCH MCHC RDW Plt Count Seg Neutrophils % Lymphocytes % Monocytes % Eosinophils % Basophils % Absolute Neutrophils Absolute Lymphocytes Absolute Monocytes Absolute Eosinophils Absolute Basophils Carbonic Acid HCO3/H2CO3 Ratio ABG pH ABG pCO2 ABG pO2 ABG HCO3 ABG O2 Saturation ABG Base Excess FiO2 Sodium Potassium Chloride Carbon Dioxide Anion Gap BUN Creatinine 0.79 Est GFR ( Amer) > 60 Est GFR (Non-Af Amer) > 60 Glucose Calcium Phosphorus Magnesium 06/28/17 06/28/17 06/28/17 00:36 00:36 08:45 Creatine Kinase 337 H 275 H CK-MB (CK-2) 4.99 H Troponin I 0.081 06/28/17 06/28/17 06/28/17 08:45 12:21 12:21 Creatine Kinase 228 H CK-MB (CK-2) 10.60 H 9.38 H Troponin I 1.600 1.470 06/28/17 06/28/17 06/29/17 19:15 19:15 00:50 Creatine Kinase 169 271 H CK-MB (CK-2) 5.33 H Troponin I 1.550 06/29/17 00:50 Creatine Kinase CK-MB (CK-2) 4.65 H Troponin I 1.240 Impressions: Cervical Spine CT 06/25/17 14:27 IMPRESSION: CHRONIC DEGENERATIVE CHANGES. NO ACUTE FINDINGS. Head CT 06/25/17 14:27 IMPRESSION: CHRONIC CHANGES OF ATROPHY AND MICROVASCULAR ISCHEMIA. Again I cannot exclude a component of normal pressure hydrocephalus. No acute intracranial abnormalities are identified. Sinus disease as noted above. Other findings as noted above EVIDENCE OF ACUTE STROKE: NO. KUB X-Ray 06/28/17 00:00 IMPRESSION: Appropriate NG tube. Chest X-Ray 06/30/17 06:00 IMPRESSION: 1. No significant interval change. Assessment & Plan - Diagnosis (1) Acute respiratory failure with hypercapnia Is this a current diagnosis for this admission?: Yes Plan: Possibly secondary to pneumonia. Patient has a left upper lobe and right lower lobe pneumonia. Patient currently intubated and blood gases are significantly improved. Pulmonary is following closely. Extubation per pulmonary recommendations. (2) Non-STEMI (non-ST elevated myocardial infarction) Is this a current diagnosis for this admission?: Yes Plan: Most likely type II [place] most likely due to his pneumonia and sepsis. Troponin is trending down. Cardiology was consulted. No aggressive intervention at this time due to patient's advanced Parkinson's disease with dementia. Patient is on aspirin, Plavix, statin, full dose Lovenox however no beta-joana is being used due to patient's hypotension. Patient is now DNR. (3) Normal pressure hydrocephalus Is this a current diagnosis for this admission?: Yes Plan: Could contribute to some of patient's mentation. May consider intervention however not while patient is fully anticoagulated. At this time supportive care may be more appropriate. (4) Parkinson's disease dementia Qualifiers: Dementia behavioral disturbance: without behavioral disturbance Qualified Code(s): G20 - Parkinson's disease; F02.80 - Dementia in other diseases classified elsewhere without behavioral disturbance; F02.80 - Dementia in other diseases classified elsewhere without behavioral disturbance; F02.80 - Dementia in other diseases classified elsewhere without behavioral disturbance Is this a current diagnosis for this admission?: Yes Plan: Continue Sinemet and as needed Versed. No Ativan is being given at this time. (5) Pneumonia Qualifiers: Pneumonia type: due to unspecified organism Laterality: left Lung location: upper lobe of lung Qualified Code(s): J18.1 - Lobar pneumonia, unspecified organism Is this a current diagnosis for this admission?: Yes Plan: Currently on cefepime and vancomycin and as needed nebulizers. Patient is currently intubated as a complication of his pneumonia. Dr. Evon gonzales is consulted and followed closely. Patient is currently in ICU. (6) Sepsis Qualifiers: Sepsis type: sepsis due to unspecified organism Qualified Code(s): A41.9 - Sepsis, unspecified organism Is this a current diagnosis for this admission?: Yes Plan: Patient with sepsis evidenced by hypotension, fever, leukocytosis with the source being pneumonia. Patient receiving volume resuscitation with normal saline. Patient is being treated with vancomycin cefepime. There is no growth on blood cultures. Vasopressin as needed for hypotension as recommended by cardiology. (7) SunDown syndrome Is this a current diagnosis for this admission?: Yes Plan: Patient is currently sedated. - Time Time Spent with patient: Less than 15 minutes Anticipated discharge: SNF Within: Other - Inpatient Certification Medical Necessity: Other - Patient is still intubated in the ICU. Patient family wants him to be DNR. Patient is now DNR.
[2017-06-30] MEDS: SIMVASTATIN 10 MG TABLET NG SCH (17:37)
[2017-06-30] MEDS ORDERED: FUROSEMIDE INJ/PF 40 MG/4 ML SDV IV ONE (19:30)
[2017-06-30] MEDS: MIDAZOLAM 2 MG/2 ML INJ IV PRN (21:42)
[2017-07-01] MEDS: IPRATROPIUM/ALBUTEROL 0.5-2.5 MG/3 ML AMPUL NEB SCH ×4 (01:33→20:40)
[2017-07-01] MEDS: MIDAZOLAM 2 MG/2 ML INJ IV PRN (02:03)
[2017-07-01 05:42] LABS: ARTERIAL BLOOD BASE EXCESS 4.4 mmol/L; ARTERIAL BLOOD HCO3 27.7 mmol/L (20-26); ARTERIAL BLOOD O2 SATURATION 95.1 % (94-98); ARTERIAL BLOOD PCO2 36.4 mmHg (35-45); ARTERIAL BLOOD PO2 68.5 mmHg (80-100); ARTERIAL BLOOD TOTAL CO2 28.8 mmol/L (23-27)
[2017-07-01 05:45] LABS: ARTERIAL BLOOD FIO2 2L
[2017-07-01 06:10] LABS: ABSOLUTE BASOPHILS # (AUTO) 0.1 10^3/uL (0.0-0.2); ABSOLUTE EOSINOPHILS # (AUTO) 0.1 10^3/uL (0.0-0.6); ABSOLUTE LYMPHOCYTES (AUTO) 0.7 10^3/uL (0.5-4.7); ABSOLUTE MONOCYTES (AUTO) 0.7 10^3/uL (0.1-1.4); ABSOLUTE NEUT (AUTO) 7.5 10^3/uL (1.7-8.2); BASOPHILS % (AUTO) 0.6 % (0-2); EOSINOPHILS % (AUTO) 0.6 % (0-6); LYMPHOCYTES % (AUTO) 8.2 % (13-45); MEAN CORPUSCULAR HEMOGLOBIN 33.6 pg (27.0-33.4); MEAN CORPUSCULAR HGB CONC 34.4 g/dL (32.0-36.0); MEAN CORPUSCULAR VOLUME 98 fl (80-97); MONOCYTES % (AUTO) 7.3 % (3-13); PLATELET COUNT 243 10^3/uL (150-450); RED BLOOD COUNT 3.28 10^6/uL (4.35-5.55); RED CELL DISTRIBUTION WIDTH 13.4 % (11.5-14.0); SEGMENTED NEUTROPHILS % (AUTO) 83.3 % (42-78); TOTAL CELLS COUNTED % (AUTO) 100 %
[2017-07-01] MEDS: LANSOPRAZOLE 15 MG TAB.RAP.DR NG SCH (06:14)
[2017-07-01] MEDS: CARBIDOPA/LEVODOPA 25-100 MG TABLET NG SCH ×3 (06:14→21:13)
[2017-07-01 06:32] LABS: ANION GAP 9 (5-19); BLOOD UREA NITROGEN 19 mg/dL (7-20); CALCIUM 8.7 mg/dL (8.4-10.2); CARBON DIOXIDE 27 mmol/L (22-30); CHLORIDE 107 mmol/L (98-107); GLUCOSE 104 mg/dL (75-110); MAGNESIUM 1.9 mg/dL (1.6-2.3); POTASSIUM 3.4 mmol/L (3.6-5.0); SODIUM 143.3 mmol/L (137-145)
--- NOTE | 2017-07-01 09:45 | RADIOLOGY REPORT (SQ) ---
EXAM DESCRIPTION: CHEST SINGLE VIEW COMPLETED DATE/TIME: 07/01/2017 6:34 am REASON FOR STUDY: resp failure COMPARISON: 06/30/2017. EXAM PARAMETERS: NUMBER OF VIEWS: One view. TECHNIQUE: Single frontal radiographic view of the chest acquired. RADIATION DOSE: NA LIMITATIONS: None. FINDINGS: LUNGS AND PLEURA: Right basilar infiltrate appears slightly worsened. Left perihilar infi ltrate has improved. MEDIASTINUM AND HILAR STRUCTURES: No masses. Contour normal. HEART AND VASCULAR STRUCTURES: Heart normal in size. Normal vasculature. BONES: No acute findings. Degenerative changes in the spine. HARDWARE: The endotracheal tube and nasogastric tube have been removed. Central line remains in plac e. OTHER: No other significant finding. IMPRESSION: SLIGHT WORSENING IN THE RIGHT BASILAR INFILTRATE. LEFT PERIHILAR INFILTRATE HAS IMPROVE D. TECHNICAL DOCUMENTATION: JOB ID: [id number] [employer]- All Rights Reserved
[2017-07-01] MEDS: VANCOMYCIN HCL 1,250 MG in DEXTROSE 5%-WATER 250 ML IV SCH ×2 (11:23→22:04)
[2017-07-01] MEDS: TAMSULOSIN HCL 0.4 MG CAP.SR.24H PO SCH (11:27)
[2017-07-01] MEDS: NICOTINE 21 MG/24 HR PATCH.TD24 TD SCH (11:27)
[2017-07-01] MEDS: LORATADINE 10 MG TABLET NG SCH (11:28)
[2017-07-01] MEDS: CLOPIDOGREL BISULFATE 75 MG TABLET PO SCH (11:28)
[2017-07-01] MEDS: ASPIRIN 81 MG TABLET, CHEWABLE NG SCH (11:28)
[2017-07-01] MEDS: CHOLECALCIFEROL (D3) 1,000 UNIT TABLET NG SCH (11:28)
[2017-07-01] MEDS: CEFEPIME 1 GM/D5W RTU 1 GM/50 ML RTUPB IV SCH ×2 (11:29→21:21)
[2017-07-01] MEDS: ENOXAPARIN SODIUM INJ 80 MG/0.8 ML DISP.SYRIN SUBCUT SCH ×2 (11:29→21:23)
[2017-07-01] MEDS: FLUTICASONE NASAL SPRAY 50 MCG/SPRY 120 SPRAY/16 GM NASL SCH (11:56)
[2017-07-01] MEDS: SIMVASTATIN 10 MG TABLET NG SCH (17:04)
[2017-07-01] MEDS: LORAZEPAM 1 MG TABLET PO SCH (21:13)
[2017-07-01] MEDS: TRAZODONE HCL 50 MG TABLET PO SCH (21:13)
[2017-07-02] MEDS ORDERED: OLANZAPINE 5 MG TAB.RAPDIS PO ONE (00:45)
[2017-07-02] MEDS: IPRATROPIUM/ALBUTEROL 0.5-2.5 MG/3 ML AMPUL NEB SCH ×4 (02:29→20:09)
[2017-07-02] MEDS: IPRATROPIUM/ALBUTEROL 0.5-2.5 MG/3 ML AMPUL NEB PRN (03:48)
[2017-07-02] MEDS: CARBIDOPA/LEVODOPA 25-100 MG TABLET NG SCH ×3 (05:15→21:46)
[2017-07-02] MEDS: LANSOPRAZOLE 15 MG TAB.RAP.DR NG SCH (05:15)
[2017-07-02 06:25] LABS: ARTERIAL BLOOD BASE EXCESS 4.2 mmol/L; ARTERIAL BLOOD FIO2 ROOM AIR; ARTERIAL BLOOD H2CO3 1.11 mmol/L (1.05-1.35); ARTERIAL BLOOD HCO3 27.6 mmol/L (20-26); ARTERIAL BLOOD O2 SATURATION 94.3 % (94-98); ARTERIAL BLOOD PH 7.49 (7.35-7.45); ARTERIAL BLOOD PO2 64.9 mmHg (80-100); ARTERIAL BLOOD TOTAL CO2 28.7 mmol/L (23-27)
[2017-07-02 06:28] LABS: ABSOLUTE BASOPHILS # (AUTO) 0.1 10^3/uL (0.0-0.2); ABSOLUTE EOSINOPHILS # (AUTO) 0.2 10^3/uL (0.0-0.6); ABSOLUTE LYMPHOCYTES (AUTO) 1.1 10^3/uL (0.5-4.7); ABSOLUTE MONOCYTES (AUTO) 0.9 10^3/uL (0.1-1.4); ABSOLUTE NEUT (AUTO) 6.9 10^3/uL (1.7-8.2); BASOPHILS % (AUTO) 0.8 % (0-2); EOSINOPHILS % (AUTO) 2.6 % (0-6); HEMATOCRIT 30.8 % (37.9-51.0); HEMOGLOBIN 10.8 g/dL (13.5-17.0); LYMPHOCYTES % (AUTO) 11.8 % (13-45); MEAN CORPUSCULAR HEMOGLOBIN 34.1 pg (27.0-33.4); MEAN CORPUSCULAR HGB CONC 34.9 g/dL (32.0-36.0); MEAN CORPUSCULAR VOLUME 98 fl (80-97); MONOCYTES % (AUTO) 10.3 % (3-13); PLATELET COUNT 239 10^3/uL (150-450); RED BLOOD COUNT 3.15 10^6/uL (4.35-5.55); RED CELL DISTRIBUTION WIDTH 13.5 % (11.5-14.0); SEGMENTED NEUTROPHILS % (AUTO) 74.5 % (42-78); TOTAL CELLS COUNTED % (AUTO) 100 %; WHITE BLOOD COUNT 9.2 10^3/uL (4.0-10.5)
[2017-07-02 06:46] LABS: ANION GAP 5 (5-19); BLOOD UREA NITROGEN 24 mg/dL (7-20); CALCIUM 8.6 mg/dL (8.4-10.2); CARBON DIOXIDE 30 mmol/L (22-30); CHLORIDE 105 mmol/L (98-107); GLUCOSE 109 mg/dL (75-110); POTASSIUM 3.4 mmol/L (3.6-5.0); SODIUM 139.8 mmol/L (137-145)
--- NOTE | 2017-07-02 09:41 | RADIOLOGY REPORT (SQ) ---
EXAM DESCRIPTION: CHEST SINGLE VIEW COMPLETED DATE/TIME: 07/02/2017 9:08 am REASON FOR STUDY: resp failure COMPARISON: 07/01/2017. EXAM PARAMETERS: NUMBER OF VIEWS: One view. TECHNIQUE: Single frontal radiographic view of the chest acquired. RADIATION DOSE: NA LIMITATIONS: None. FINDINGS: LUNGS AND PLEURA: No change in the right basilar infiltrate. MEDIASTINUM AND HILAR STRUCTURES: No masses. Contour normal. HEART AND VASCULAR STRUCTURES: Heart normal in size. Normal vasculature. BONES: No acute findings. HARDWARE: Central line. OTHER: No other significant finding. IMPRESSION: NO CHANGE IN APPEARANCE OF THE CHEST. TECHNICAL DOCUMENTATION: JOB ID: [id number] [employer]- All Rights Reserved
[2017-07-02] MEDS: TAMSULOSIN HCL 0.4 MG CAP.SR.24H PO SCH (09:47)
[2017-07-02] MEDS: CLOPIDOGREL BISULFATE 75 MG TABLET PO SCH (09:47)
[2017-07-02] MEDS: DOXYCYCLINE HYCLATE 100 MG TABLET PO SCH ×2 (09:47→21:46)
[2017-07-02] MEDS: LORATADINE 10 MG TABLET NG SCH (09:47)
[2017-07-02] MEDS: NICOTINE 21 MG/24 HR PATCH.TD24 TD SCH (09:48)
[2017-07-02] MEDS: FLUTICASONE NASAL SPRAY 50 MCG/SPRY 120 SPRAY/16 GM NASL SCH (09:48)
[2017-07-02] MEDS: ENOXAPARIN SODIUM INJ 80 MG/0.8 ML DISP.SYRIN SUBCUT SCH ×2 (09:48→21:47)
[2017-07-02] MEDS: CHOLECALCIFEROL (D3) 1,000 UNIT TABLET NG SCH (09:48)
[2017-07-02] MEDS: LORAZEPAM 0.5 MG TABLET PO SCH (09:48)
[2017-07-02] MEDS: ASPIRIN 81 MG TABLET, CHEWABLE NG SCH (09:48)
[2017-07-02] MEDS: POTASSIUM CHLORIDE 20 MEQ/15 ML UDCUP PO SCH ×2 (09:49→21:46)
[2017-07-02] MEDS ORDERED: LORAZEPAM 0.5 MG TABLET PO SCH (10:00)
--- NOTE | 2017-07-02 11:15 | PDOC PROGRESS REPORT ---
Subjective Progress Note for:: 06/30/17 Subjective:: Patient about the same but has made some progress. There is no significant change in general condition. Patient remains intubated, sedated, patient however looks comfortable and in acute distress. Patient remains on Raf-Synephrine. Patient currently maintaining sinus rhythm. Raf-Synephrine drip is being tapered. I am told patient made a DNR today. Medications reviewed. Reason For Visit: PNEUMONIA,PARKINSON'S DISEASE DEMENTIA Physical Exam Vital Signs: Temp Pulse Resp BP Pulse Ox 100.0 F 78 16 146/72 H 95 06/30/17 19:00 06/30/17 19:37 06/30/17 19:37 06/30/17 18:45 06/30/17 19:37 Intake & Output 06/29/17 06/30/17 07/01/17 06:59 06:59 06:59 Intake Total 6838 4862 1790 Output Total 1390 2575 1095 Balance 5448 2287 695 Weight 73.4 kg 74.8 kg Exam: GENERAL: well-nourished and in no acute distress. Patient is intubated and sedated. Orientation cannot be checked HEAD: Atraumatic, normocephalic. EYES: Pupils equal round and reactive to light, extraocular movements could not be checked, sclera anicteric, conjunctiva are normal. ENT: TMs normal, nares patent, oropharynx clear without exudates. Moist mucous membranes. No oral ulcerations or bleeding gums noted NECK: supple without lymphadenopathy or JVD. Trachea is central. No cervical or axillary lymphadenopathy noted. Carotids are 2+ LUNGS: Breath sounds mostly clear to auscultation patient is noted to have bibasal crackles at the extreme bases CHEST: Palpation of the chest wall shows no significant chest wall tenderness or abnormalities. 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 ABDOMEN: Soft, no significant tenderness appreciated, normoactive bowel sounds. No guarding, no rebound. No rigidity noted . No masses appreciated. EXTREMITIES: Pedal pulses are 1-2+, no calf tenderness noted, 1+ pedal edema noted. No clubbing or cyanosis. NEUROLOGICAL: The patient cannot participate in the neurological exam but no facial asymmetry noted. Extremities slightly hypotonic PSYCH: This cannot be evaluated. Patient cannot participate. SKIN: No significant ecchymosis, rash, or signs of pruritus noted. MUSCULOSKELETAL EXAM: No significant joint swelling noted. Patient cannot participate in musculoskeletal exam Results Laboratory Results: 06/30/17 05:25 06/30/17 09:50 06/30/17 06/30/17 06/30/17 05:25 05:25 05:25 WBC 7.5 RBC 3.08 L Hgb 10.4 L Hct 30.4 L MCV 99 H MCH 33.7 H MCHC 34.0 RDW 13.5 Plt Count 220 Seg Neutrophils % 69.2 Lymphocytes % 18.3 Monocytes % 9.8 Eosinophils % 1.7 Basophils % 1.0 Absolute Neutrophils 5.2 Absolute Lymphocytes 1.4 Absolute Monocytes 0.7 Absolute Eosinophils 0.1 Absolute Basophils 0.1 Carbonic Acid 1.16 HCO3/H2CO3 Ratio 22:1 ABG pH 7.45 ABG pCO2 38.4 ABG pO2 77.2 L ABG HCO3 26.3 H ABG O2 Saturation 96.0 ABG Base Excess 2.3 FiO2 21% Sodium 145.1 H Potassium 3.6 Chloride 112 H Carbon Dioxide 26 Anion Gap 7 BUN 18 Creatinine 0.81 Est GFR ( Amer) > 60 Est GFR (Non-Af Amer) > 60 Glucose 107 Calcium 8.2 L Phosphorus 2.7 Magnesium 1.9 06/30/17 09:50 WBC RBC Hgb Hct MCV MCH MCHC RDW Plt Count Seg Neutrophils % Lymphocytes % Monocytes % Eosinophils % Basophils % Absolute Neutrophils Absolute Lymphocytes Absolute Monocytes Absolute Eosinophils Absolute Basophils Carbonic Acid HCO3/H2CO3 Ratio ABG pH ABG pCO2 ABG pO2 ABG HCO3 ABG O2 Saturation ABG Base Excess FiO2 Sodium Potassium Chloride Carbon Dioxide Anion Gap BUN Creatinine 0.79 Est GFR ( Amer) > 60 Est GFR (Non-Af Amer) > 60 Glucose Calcium Phosphorus Magnesium 06/28/17 06/28/17 06/28/17 00:36 00:36 08:45 Creatine Kinase 337 H 275 H CK-MB (CK-2) 4.99 H Troponin I 0.081 06/28/17 06/28/17 06/28/17 08:45 12:21 12:21 Creatine Kinase 228 H CK-MB (CK-2) 10.60 H 9.38 H Troponin I 1.600 1.470 06/28/17 06/28/17 06/29/17 19:15 19:15 00:50 Creatine Kinase 169 271 H CK-MB (CK-2) 5.33 H Troponin I 1.550 06/29/17 00:50 Creatine Kinase CK-MB (CK-2) 4.65 H Troponin I 1.240 Impressions: Cervical Spine CT 06/25/17 14:27 IMPRESSION: CHRONIC DEGENERATIVE CHANGES. NO ACUTE FINDINGS. Head CT 06/25/17 14:27 IMPRESSION: CHRONIC CHANGES OF ATROPHY AND MICROVASCULAR ISCHEMIA. Again I cannot exclude a component of normal pressure hydrocephalus. No acute intracranial abnormalities are identified. Sinus disease as noted above. Other findings as noted above EVIDENCE OF ACUTE STROKE: NO. KUB X-Ray 06/28/17 00:00 IMPRESSION: Appropriate NG tube. Chest X-Ray 06/30/17 06:00 IMPRESSION: 1. No significant interval change. Assessment & Plan - Diagnosis (1) Elevated troponin I level Is this a current diagnosis for this admission?: Yes (2) Non-STEMI (non-ST elevated myocardial infarction) Is this a current diagnosis for this admission?: Yes (3) Cardiomyopathy Qualifiers: Cardiomyopathy type: unspecified Qualified Code(s): I42.9 - Cardiomyopathy , unspecified Is this a current diagnosis for this admission?: Yes (4) Acute respiratory failure with hypercapnia Is this a current diagnosis for this admission?: Yes (5) Pneumonia Qualifiers: Pneumonia type: due to unspecified organism Laterality: left Lung location: upper lobe of lung Qualified Code(s): J18.1 - Lobar pneumonia, unspecified organism Is this a current diagnosis for this admission?: Yes (6) Sepsis Qualifiers: Sepsis type: sepsis due to unspecified organism Qualified Code(s): A41.9 - Sepsis, unspecified organism Is this a current diagnosis for this admission?: Yes (7) Parkinson's disease dementia Qualifiers: Dementia behavioral disturbance: without behavioral disturbance Qualified Code(s): G20 - Parkinson's disease; F02.80 - Dementia in other diseases classified elsewhere without behavioral disturbance; F02.80 - Dementia in other diseases classified elsewhere without behavioral disturbance; F02.80 - Dementia in other diseases classified elsewhere without behavioral disturbance Is this a current diagnosis for this admission?: Yes - Notes Notes: Patient was made a DNR today. Continue supportive care. Elevated troponin I: Most likely related to supply demand mismatch from sepsis, pneumonia, hypoxemia, hypotension etc. patient has remained stable. No intervention planned. Non-STEMI: Type II [place] related to supply demand mismatch and from metabolic reasons secondary to sepsis, hypoxemia, hypotension. Patient does have underlying coronary artery disease but EKGs has been normal and there is no obvious ongoing ischemia. Patient also has significant other comorbid diagnosis which makes him an unlikely candidate for any aggressive intervention. No intervention planned. Cardiomyopathy: LVEF is severely reduced. Consider digoxin therapy. May consider SUMIT inhibitor/ARB/entresto therapy and beta blockers once blood pressure improves. Acute respiratory failure with hypercapnia: Most likely related to aspiration pneumonia. Continue ventilatory support and oxygen supplementation. Attempts are being made to try to extubate patient later on today. Pneumonia: Based on infiltrate location, most likely aspiration. Continue antibiotic therapy with aspiration precaution later on. Currently patient is intubated providing airway protection. Attempts are being made to extubate patient today. Sepsis: Currently needing Raf-Synephrine continue with it. May consider adding vasopressin if needed. Continue antibiotics and other supportive care. Currently improving. Raf-Synephrine dose is being reduced. Parkinson's disease with dementia: This is usually a progressive disease with poor prognosis. Continue current supportive care. - Time Time with patient: 15-25 minutes - CODE STATUS : was discussed, patient remains DO NOT RESUSCITATE. Surrogate decision-maker unchanged. Multiple medical problems were addressed. More than 50% of the time spent coordinating care, discussing management plans with involved caregivers. Management plans discussed with involved personnels. Medical decision making was of moderate to high complexity, patient's has multiple comorbidities. Medications reviewed and adjusted accordingly: Yes
--- NOTE | 2017-07-02 11:17 | PDOC PROGRESS REPORT ---
Subjective Progress Note for:: 07/01/17 Subjective:: Patient was seen in the unit. He was extubated yesterday afternoon and has been able to maintain his oxygenation and respiration. Currently he is a DNR. Patient currently maintaining sinus rhythm. Medications reviewed. Reason For Visit: PNEUMONIA,PARKINSON'S DISEASE DEMENTIA Physical Exam Vital Signs: Temp Pulse Resp BP Pulse Ox 97.8 F 90 23 H 118/51 L 96 07/01/17 19:30 07/01/17 20:00 07/01/17 19:30 07/01/17 19:30 07/01/17 19:30 Intake & Output 06/30/17 07/01/17 07/02/17 06:59 06:59 06:59 Intake Total 4862 2108 800 Output Total 2575 4345 Balance 2287 -2237 800 Weight 74.8 kg 76.1 kg Exam: GENERAL: well-nourished and in no acute distress. Patient is alert but not oriented to place time or person. HEAD: Atraumatic, normocephalic. EYES: Pupils equal round and reactive to light, extraocular movements intact, sclera anicteric, conjunctiva are normal. ENT: TMs normal, nares patent, oropharynx clear without exudates. Moist mucous membranes. No oral ulcerations or bleeding gums noted NECK: supple without lymphadenopathy or JVD. Trachea is central. No cervical or axillary lymphadenopathy noted. Carotids are 2+ LUNGS: Breath sounds bibasilar fine crackles at bases. No significant dullness noted. CHEST: Palpation of chest wall shows no significant chest wall tenderness. 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 ABDOMEN: Soft, no significant tenderness appreciated, normoactive bowel sounds. No guarding, no rebound. No rigidity noted . No masses appreciated. EXTREMITIES: Pedal pulses are 1-2+, no calf tenderness noted, Trace + pedal edema noted. No clubbing or cyanosis. NEUROLOGICAL: Patient is alert but is not able to participate in neurological exam because of patient's current mental status PSYCH: Patient cannot participate in a neurologic and psych exam because of the patient's current mental status SKIN: No significant ecchymosis, rash, ulcerations or signs of pruritus noted. MUSCULOSKELETAL EXAM: No significant joint swelling noted. Results Laboratory Results: 07/01/17 05:15 07/01/17 05:15 07/01/17 07/01/17 07/01/17 05:15 05:15 05:15 WBC 9.0 RBC 3.28 L Hgb 11.0 L Hct 32.0 L MCV 98 H MCH 33.6 H MCHC 34.4 RDW 13.4 Plt Count 243 Seg Neutrophils % 83.3 H Lymphocytes % 8.2 L Monocytes % 7.3 Eosinophils % 0.6 Basophils % 0.6 Absolute Neutrophils 7.5 Absolute Lymphocytes 0.7 Absolute Monocytes 0.7 Absolute Eosinophils 0.1 Absolute Basophils 0.1 Carbonic Acid 1.10 HCO3/H2CO3 Ratio 25:1 ABG pH 7.50 H ABG pCO2 36.4 ABG pO2 68.5 L ABG HCO3 27.7 H ABG O2 Saturation 95.1 ABG Base Excess 4.4 FiO2 2L Sodium 143.3 Potassium 3.4 L Chloride 107 Carbon Dioxide 27 Anion Gap 9 BUN 19 Creatinine 0.87 Est GFR ( Amer) > 60 Est GFR (Non-Af Amer) > 60 Glucose 104 Calcium 8.7 Magnesium 1.9 06/28/17 06/28/17 06/28/17 00:36 00:36 08:45 Creatine Kinase 337 H 275 H CK-MB (CK-2) 4.99 H Troponin I 0.081 06/28/17 06/28/17 06/28/17 08:45 12:21 12:21 Creatine Kinase 228 H CK-MB (CK-2) 10.60 H 9.38 H Troponin I 1.600 1.470 06/28/17 06/28/17 06/29/17 19:15 19:15 00:50 Creatine Kinase 169 271 H CK-MB (CK-2) 5.33 H Troponin I 1.550 06/29/17 00:50 Creatine Kinase CK-MB (CK-2) 4.65 H Troponin I 1.240 Impressions: Cervical Spine CT 06/25/17 14:27 IMPRESSION: CHRONIC DEGENERATIVE CHANGES. NO ACUTE FINDINGS. Head CT 06/25/17 14:27 IMPRESSION: CHRONIC CHANGES OF ATROPHY AND MICROVASCULAR ISCHEMIA. Again I cannot exclude a component of normal pressure hydrocephalus. No acute intracranial abnormalities are identified. Sinus disease as noted above. Other findings as noted above EVIDENCE OF ACUTE STROKE: NO. KUB X-Ray 06/28/17 00:00 IMPRESSION: Appropriate NG tube. Chest X-Ray 07/01/17 06:00 IMPRESSION: SLIGHT WORSENING IN THE RIGHT BASILAR INFILTRATE. LEFT PERIHILAR INFILTRATE HAS IMPROVED. Assessment & Plan - Diagnosis (1) Elevated troponin I level Is this a current diagnosis for this admission?: Yes (2) Non-STEMI (non-ST elevated myocardial infarction) Is this a current diagnosis for this admission?: Yes (3) Cardiomyopathy Qualifiers: Cardiomyopathy type: unspecified Qualified Code(s): I42.9 - Cardiomyopathy , unspecified Is this a current diagnosis for this admission?: Yes (4) Acute respiratory failure with hypercapnia Is this a current diagnosis for this admission?: Yes (5) Pneumonia Qualifiers: Pneumonia type: due to unspecified organism Laterality: left Lung location: upper lobe of lung Qualified Code(s): J18.1 - Lobar pneumonia, unspecified organism Is this a current diagnosis for this admission?: Yes (6) Sepsis Qualifiers: Sepsis type: sepsis due to unspecified organism Qualified Code(s): A41.9 - Sepsis, unspecified organism Is this a current diagnosis for this admission?: Yes (7) Parkinson's disease dementia Qualifiers: Dementia behavioral disturbance: without behavioral disturbance Qualified Code(s): G20 - Parkinson's disease; F02.80 - Dementia in other diseases classified elsewhere without behavioral disturbance; F02.80 - Dementia in other diseases classified elsewhere without behavioral disturbance; F02.80 - Dementia in other diseases classified elsewhere without behavioral disturbance Is this a current diagnosis for this admission?: Yes - Notes Notes: Patient has remained stable. He is now a DNR. Patient has been moved to a floor bed. My previous recommendations remain on this patient. Will sign off. Please reconsult if needed. Elevated troponin I: Most likely related to supply demand mismatch from sepsis, pneumonia, hypoxemia, hypotension etc. EKGs are not showing any acute ST-T wave changes. Non-STEMI: Type II [place] related to supply demand mismatch and from metabolic reasons secondary to sepsis, hypoxemia, hypotension. Patient does have underlying coronary artery disease but EKGs has been normal and there is no obvious ongoing ischemia. Patient also has significant other comorbid diagnosis which makes him an unlikely candidate for any aggressive intervention. Cardiomyopathy: LVEF is severely reduced. Consider digoxin therapy. May consider SUMIT inhibitor/ARB/entresto therapy and beta blockers once blood pressure improves. Acute respiratory failure with hypercapnia: Most likely related to aspiration pneumonia. Continue ventilatory support and oxygen supplementation. Pneumonia: Based on infiltrate location, most likely aspiration. Continue antibiotic therapy with aspiration precaution later on. Currently patient is intubated providing airway protection. Sepsis: Currently needing Raf-Synephrine continue with it. May consider adding vasopressin if needed. Continue antibiotics and other supportive care. Parkinson's disease with dementia: This is usually a progressive disease with poor prognosis. Continue current supportive care. - Time Time with patient: 15-25 minutes - CODE STATUS : was discussed, patient remains DO NOT RESUSCITATE. Surrogate decision-maker unchanged. Multiple medical problems were addressed. More than 50% of the time spent coordinating care, discussing management plans with involved caregivers. Management plans discussed with involved personnels. Medical decision making was of moderate to high complexity, patient's has multiple comorbidities. Will sign off. Please reconsult if needed. Medications reviewed and adjusted accordingly: Yes
[2017-07-02] MEDS: SIMVASTATIN 10 MG TABLET NG SCH (17:56)
[2017-07-02] MEDS: LORAZEPAM 1 MG TABLET PO SCH (21:46)
[2017-07-02] MEDS: TRAZODONE HCL 50 MG TABLET PO SCH (21:46)
[2017-07-03] MEDS: IPRATROPIUM/ALBUTEROL 0.5-2.5 MG/3 ML AMPUL NEB SCH ×4 (02:06→20:25)
[2017-07-03] MEDS: LANSOPRAZOLE 15 MG TAB.RAP.DR NG SCH (05:28)
[2017-07-03] MEDS: CARBIDOPA/LEVODOPA 25-100 MG TABLET NG SCH ×3 (05:28→22:09)
[2017-07-03] MEDS: CHOLECALCIFEROL (D3) 1,000 UNIT TABLET NG SCH (09:41)
[2017-07-03] MEDS: DOXYCYCLINE HYCLATE 100 MG TABLET PO SCH ×2 (09:42→22:10)
[2017-07-03] MEDS: FLUTICASONE NASAL SPRAY 50 MCG/SPRY 120 SPRAY/16 GM NASL SCH (09:42)
[2017-07-03] MEDS: CLOPIDOGREL BISULFATE 75 MG TABLET PO SCH (09:42)
[2017-07-03] MEDS: LORATADINE 10 MG TABLET NG SCH (09:42)
[2017-07-03] MEDS: LORAZEPAM 0.5 MG TABLET PO SCH (09:42)
[2017-07-03] MEDS: ASPIRIN 81 MG TABLET, CHEWABLE NG SCH (09:42)
[2017-07-03] MEDS: ENOXAPARIN SODIUM INJ 80 MG/0.8 ML DISP.SYRIN SUBCUT SCH ×2 (09:43→22:10)
[2017-07-03] MEDS: NICOTINE 21 MG/24 HR PATCH.TD24 TD SCH (09:43)
[2017-07-03] MEDS: POTASSIUM CHLORIDE 20 MEQ/15 ML UDCUP PO SCH ×2 (09:45→22:10)
[2017-07-03] MEDS: TAMSULOSIN HCL 0.4 MG CAP.SR.24H PO SCH (09:45)
[2017-07-03] MEDS: SIMVASTATIN 10 MG TABLET NG SCH (17:23)
[2017-07-03] MEDS: TRAZODONE HCL 50 MG TABLET PO SCH (22:09)
[2017-07-03] MEDS: QUETIAPINE FUMARATE 25 MG TABLET PO SCH (22:09)
[2017-07-03] MEDS: LORAZEPAM 1 MG TABLET PO SCH (22:10)
[2017-07-04] MEDS: IPRATROPIUM/ALBUTEROL 0.5-2.5 MG/3 ML AMPUL NEB SCH ×4 (02:10→20:19)
[2017-07-04 05:15] LABS: HEMATOCRIT 33.6 % (37.9-51.0); HEMOGLOBIN 11.2 g/dL (13.5-17.0); MEAN CORPUSCULAR HEMOGLOBIN 32.7 pg (27.0-33.4); MEAN CORPUSCULAR HGB CONC 33.4 g/dL (32.0-36.0); MEAN CORPUSCULAR VOLUME 98 fl (80-97); PLATELET COUNT 294 10^3/uL (150-450); RED BLOOD COUNT 3.43 10^6/uL (4.35-5.55); RED CELL DISTRIBUTION WIDTH 13.9 % (11.5-14.0); WHITE BLOOD COUNT 13.4 10^3/uL (4.0-10.5)
[2017-07-04 05:32] LABS: ANION GAP 5 (5-19); BLOOD UREA NITROGEN 23 mg/dL (7-20); CALCIUM 9.6 mg/dL (8.4-10.2); CARBON DIOXIDE 33 mmol/L (22-30); CHLORIDE 106 mmol/L (98-107); GLUCOSE 164 mg/dL (75-110); MAGNESIUM 2.1 mg/dL (1.6-2.3); POTASSIUM 4.4 mmol/L (3.6-5.0); SODIUM 143.8 mmol/L (137-145)
[2017-07-04] MEDS: LANSOPRAZOLE 15 MG TAB.RAP.DR NG SCH (05:42)
[2017-07-04] MEDS: CARBIDOPA/LEVODOPA 25-100 MG TABLET NG SCH ×3 (05:42→22:16)
[2017-07-04 06:08] LABS: ABSOLUTE LYMPHOCYTES# (MANUAL) 0.9 10^3/uL (0.5-4.7); ABSOLUTE MONOCYTES # (MANUAL) 0.4 10^3/uL (0.1-1.4); ABSOLUTE NEUTROPHILS# (MANUAL) 12.1 10^3/uL (1.7-8.2); BASOPHILS % (MANUAL) 0 % (0-2); EOSINOPHILS % (MANUAL) 0 % (0-6); LYMPHOCYTES % (MANUAL) 7 % (13-45); MONOCYTES % (MANUAL) 3 % (3-13); PLATELET CLUMPS PRESENT; PLATELET COMMENT ADEQUATE; SEGMENTED NEUTROPHILS % (MAN) 90 % (42-78); TOTAL CELLS COUNTED 100
[2017-07-04 06:10] LABS: RBC MORPHOLOGY COMMENT NORMO-CYTIC/CHROMIC
--- NOTE | 2017-07-04 08:07 | PDOC PROGRESS REPORT ---
Subjective Progress Note for:: 07/01/17 Subjective:: Patient is a 82-year-old male with a past medical history of advanced Parkinson' s disease with dementia and delirium admitted on 06/25/2017 with worsening delirium and pneumonia. Patient developed hypercapnic respiratory failure requiring intubation on 06/28/2017. Patient is currently intubated and sedated sedated on minimal vent settings. Patient appears stable. Patient extubated and being fed by family. Patient not sleeping. Family concerned and would like to know where he is going on discharge. Reason For Visit: PNEUMONIA,PARKINSON'S DISEASE DEMENTIA Physical Exam Vital Signs: Temp Pulse Resp BP Pulse Ox 97.8 F 86 23 H 118/51 L 96 07/01/17 19:30 07/01/17 19:30 07/01/17 19:30 07/01/17 19:30 07/01/17 19:30 Intake & Output 06/30/17 07/01/17 07/02/17 06:59 06:59 06:59 Intake Total 4862 2108 800 Output Total 2575 4345 Balance 2287 -2237 800 Weight 74.8 kg 76.1 kg General appearance: PRESENT: no acute distress, thin Head exam: PRESENT: normocephalic Eye exam: PRESENT: EOMI. ABSENT: scleral icterus Ear exam: PRESENT: normal external ear exam Mouth exam: PRESENT: moist Teeth exam: PRESENT: edentulous Neck exam: ABSENT: carotid bruit, JVD, lymphadenopathy, thyromegaly Respiratory exam: PRESENT: clear to auscultation luis, other - wet cough. ABSENT : rales, rhonchi, wheezes Cardiovascular exam: PRESENT: RRR. ABSENT: diastolic murmur, rubs, systolic murmur GI/Abdominal exam: PRESENT: normal bowel sounds, soft. ABSENT: distended, guarding, mass, organolmegaly, rebound, tenderness Rectal exam: PRESENT: deferred Extremities exam: PRESENT: full ROM. ABSENT: calf tenderness, clubbing, pedal edema Neurological exam: PRESENT: alert, awake, oriented to person, oriented to time, CN II-XII grossly intact. ABSENT: motor sensory deficit Psychiatric exam: PRESENT: agitated. ABSENT: homicidal ideation, suicidal ideation Skin exam: PRESENT: dry, intact, warm. ABSENT: cyanosis, rash Results Laboratory Results: 07/01/17 05:15 07/01/17 05:15 07/01/17 07/01/17 07/01/17 05:15 05:15 05:15 WBC 9.0 RBC 3.28 L Hgb 11.0 L Hct 32.0 L MCV 98 H MCH 33.6 H MCHC 34.4 RDW 13.4 Plt Count 243 Seg Neutrophils % 83.3 H Lymphocytes % 8.2 L Monocytes % 7.3 Eosinophils % 0.6 Basophils % 0.6 Absolute Neutrophils 7.5 Absolute Lymphocytes 0.7 Absolute Monocytes 0.7 Absolute Eosinophils 0.1 Absolute Basophils 0.1 Carbonic Acid 1.10 HCO3/H2CO3 Ratio 25:1 ABG pH 7.50 H ABG pCO2 36.4 ABG pO2 68.5 L ABG HCO3 27.7 H ABG O2 Saturation 95.1 ABG Base Excess 4.4 FiO2 2L Sodium 143.3 Potassium 3.4 L Chloride 107 Carbon Dioxide 27 Anion Gap 9 BUN 19 Creatinine 0.87 Est GFR ( Amer) > 60 Est GFR (Non-Af Amer) > 60 Glucose 104 Calcium 8.7 Magnesium 1.9 06/28/17 06/28/17 06/28/17 00:36 00:36 08:45 Creatine Kinase 337 H 275 H CK-MB (CK-2) 4.99 H Troponin I 0.081 06/28/17 06/28/17 06/28/17 08:45 12:21 12:21 Creatine Kinase 228 H CK-MB (CK-2) 10.60 H 9.38 H Troponin I 1.600 1.470 06/28/17 06/28/17 06/29/17 19:15 19:15 00:50 Creatine Kinase 169 271 H CK-MB (CK-2) 5.33 H Troponin I 1.550 06/29/17 00:50 Creatine Kinase CK-MB (CK-2) 4.65 H Troponin I 1.240 Impressions: Cervical Spine CT 06/25/17 14:27 IMPRESSION: CHRONIC DEGENERATIVE CHANGES. NO ACUTE FINDINGS. Head CT 06/25/17 14:27 IMPRESSION: CHRONIC CHANGES OF ATROPHY AND MICROVASCULAR ISCHEMIA. Again I cannot exclude a component of normal pressure hydrocephalus. No acute intracranial abnormalities are identified. Sinus disease as noted above. Other findings as noted above EVIDENCE OF ACUTE STROKE: NO. KUB X-Ray 06/28/17 00:00 IMPRESSION: Appropriate NG tube. Chest X-Ray 07/01/17 06:00 IMPRESSION: SLIGHT WORSENING IN THE RIGHT BASILAR INFILTRATE. LEFT PERIHILAR INFILTRATE HAS IMPROVED. Assessment & Plan - Diagnosis (1) Acute respiratory failure with hypercapnia Is this a current diagnosis for this admission?: Yes Plan: Possibly secondary to pneumonia. Patient has a left upper lobe and right lower lobe pneumonia. Patient currently intubated and blood gases are significantly improved. Patient extubated on 06/30/2017. Patient being downgraded to IMCU. (2) Non-STEMI (non-ST elevated myocardial infarction) Is this a current diagnosis for this admission?: Yes Plan: Most likely type II ID most likely due to his pneumonia and sepsis. Troponin is trending down. Cardiology was consulted. No aggressive intervention at this time due to patient's advanced Parkinson's disease with dementia. Patient is on aspirin, Plavix, statin, full dose Lovenox however no beta-joana is being used due to patient's hypotension. Patient is now DNR. Patient may be able to tolerate beta joana now. (3) Normal pressure hydrocephalus Is this a current diagnosis for this admission?: Yes Plan: Could contribute to some of patient's mentation. May consider intervention however not while patient is fully anticoagulated. At this time supportive care may be more appropriate. (4) Parkinson's disease dementia Qualifiers: Dementia behavioral disturbance: without behavioral disturbance Qualified Code(s): G20 - Parkinson's disease; F02.80 - Dementia in other diseases classified elsewhere without behavioral disturbance; F02.80 - Dementia in other diseases classified elsewhere without behavioral disturbance; F02.80 - Dementia in other diseases classified elsewhere without behavioral disturbance Is this a current diagnosis for this admission?: Yes Plan: Continue Sinemet. Resume ativan and trazadone. No ambien. (5) Pneumonia Qualifiers: Pneumonia type: due to unspecified organism Laterality: left Lung location: upper lobe of lung Qualified Code(s): J18.1 - Lobar pneumonia, unspecified organism Is this a current diagnosis for this admission?: Yes Plan: Currently on cefepime and vancomycin and as needed nebulizers. Patient is currently intubated as a complication of his pneumonia. Dr. Evon gonzales is consulted and followed closely. Will considering weaning antibiotics. (6) Sepsis Qualifiers: Sepsis type: sepsis due to unspecified organism Qualified Code(s): A41.9 - Sepsis, unspecified organism Is this a current diagnosis for this admission?: Yes Plan: Resolved however on this admission, patient did sepsis evidenced by hypotension , fever, leukocytosis with the source being pneumonia. Patient receiving volume resuscitation with normal saline. Patient is being treated with vancomycin cefepime. There is no growth on blood cultures. Vasopressin as needed for hypotension as recommended by cardiology. (7) SunDown syndrome Is this a current diagnosis for this admission?: Yes Plan: Patient started on back on his ativan and trazadone was added. - Time Time Spent with patient: 15-24 minutes Anticipated discharge: SNF Within: when bed available - Inpatient Certification Medical Necessity: Need for IV Antibiotics - Patient will require placement. Family is talking about possibly taking him home if he improves.
--- NOTE | 2017-07-04 08:15 | PDOC PROGRESS REPORT ---
Subjective Progress Note for:: 07/02/17 Subjective:: Patient is a 82-year-old male with a past medical history of advanced Parkinson' s disease with dementia and delirium admitted on 06/25/2017 with worsening delirium and pneumonia. Patient developed hypercapnic respiratory failure requiring intubation on 06/28/2017. Patient is currently intubated and sedated sedated on minimal vent settings. Patient extubated 06/30. Patient has not been sleeping. Patient has pulled out his fry. Patient is currently in restraints. Reason For Visit: PNEUMONIA,PARKINSON'S DISEASE DEMENTIA Physical Exam Vital Signs: Temp Pulse Resp BP Pulse Ox 97.6 F 88 17 123/67 96 07/02/17 16:18 07/02/17 20:09 07/02/17 20:09 07/02/17 16:18 07/02/17 20:09 Pulse Oximeter Continuous Start: 07/01/17 23: 27 Freq: RTQ4 Status: Active Document 07/02/17 20:09 EAL (Rec: 07/02/17 21:21 EAL [email or web address]) Pulse Oximetry Assessment Oxygen Saturation (92-100) 96 Oxygen Delivery Method Room Air Equipment Usage Equipment in Use Continuous SpO2 Machine # 13 Intake & Output 07/01/17 07/02/17 07/03/17 06:59 06:59 06:59 Intake Total 2108 1100 210 Output Total 4345 Balance -2237 1100 210 Weight 76.1 kg 80.5 kg General appearance: PRESENT: no acute distress, thin Head exam: PRESENT: normocephalic Eye exam: PRESENT: EOMI. ABSENT: scleral icterus Ear exam: PRESENT: normal external ear exam Mouth exam: PRESENT: moist Neck exam: ABSENT: carotid bruit, JVD, lymphadenopathy, thyromegaly Respiratory exam: PRESENT: clear to auscultation luis. ABSENT: rales, rhonchi, wheezes Cardiovascular exam: PRESENT: RRR. ABSENT: diastolic murmur, rubs, systolic murmur GI/Abdominal exam: PRESENT: normal bowel sounds, soft. ABSENT: distended, guarding, mass, organolmegaly, rebound, tenderness Rectal exam: PRESENT: deferred Extremities exam: PRESENT: full ROM. ABSENT: calf tenderness, clubbing, pedal edema Neurological exam: PRESENT: other - sleeping. ABSENT: motor sensory deficit Psychiatric exam: ABSENT: homicidal ideation, suicidal ideation Skin exam: PRESENT: dry, intact, warm. ABSENT: cyanosis, rash Results Laboratory Results: 07/02/17 05:30 07/02/17 05:30 07/02/17 07/02/17 07/02/17 05:30 05:30 06:00 WBC 9.2 RBC 3.15 L Hgb 10.8 L Hct 30.8 L MCV 98 H MCH 34.1 H MCHC 34.9 RDW 13.5 Plt Count 239 Seg Neutrophils % 74.5 Lymphocytes % 11.8 L Monocytes % 10.3 Eosinophils % 2.6 Basophils % 0.8 Absolute Neutrophils 6.9 Absolute Lymphocytes 1.1 Absolute Monocytes 0.9 Absolute Eosinophils 0.2 Absolute Basophils 0.1 Carbonic Acid 1.11 HCO3/H2CO3 Ratio 24:1 ABG pH 7.49 H ABG pCO2 37.0 ABG pO2 64.9 L ABG HCO3 27.6 H ABG O2 Saturation 94.3 ABG Base Excess 4.2 FiO2 ROOM AIR Sodium 139.8 Potassium 3.4 L Chloride 105 Carbon Dioxide 30 Anion Gap 5 BUN 24 H Creatinine 0.74 Est GFR ( Amer) > 60 Est GFR (Non-Af Amer) > 60 Glucose 109 Calcium 8.6 Magnesium 2.0 06/28/17 06/28/17 06/28/17 00:36 00:36 08:45 Creatine Kinase 337 H 275 H CK-MB (CK-2) 4.99 H Troponin I 0.081 06/28/17 06/28/17 06/28/17 08:45 12:21 12:21 Creatine Kinase 228 H CK-MB (CK-2) 10.60 H 9.38 H Troponin I 1.600 1.470 06/28/17 06/28/17 06/29/17 19:15 19:15 00:50 Creatine Kinase 169 271 H CK-MB (CK-2) 5.33 H Troponin I 1.550 06/29/17 00:50 Creatine Kinase CK-MB (CK-2) 4.65 H Troponin I 1.240 Impressions: Cervical Spine CT 06/25/17 14:27 IMPRESSION: CHRONIC DEGENERATIVE CHANGES. NO ACUTE FINDINGS. Head CT 06/25/17 14:27 IMPRESSION: CHRONIC CHANGES OF ATROPHY AND MICROVASCULAR ISCHEMIA. Again I cannot exclude a component of normal pressure hydrocephalus. No acute intracranial abnormalities are identified. Sinus disease as noted above. Other findings as noted above EVIDENCE OF ACUTE STROKE: NO. KUB X-Ray 06/28/17 00:00 IMPRESSION: Appropriate NG tube. Chest X-Ray 07/02/17 06:00 IMPRESSION: NO CHANGE IN APPEARANCE OF THE CHEST. Assessment & Plan - Diagnosis (1) Acute respiratory failure with hypercapnia Is this a current diagnosis for this admission?: Yes Plan: Possibly secondary to pneumonia. Patient has a left upper lobe and right lower lobe pneumonia. Patient currently intubated and blood gases are significantly improved. Patient extubated on 06/30/2017. Patient doing well non nasal canula. (2) Non-STEMI (non-ST elevated myocardial infarction) Is this a current diagnosis for this admission?: Yes Plan: Most likely type II [place] most likely due to his pneumonia and sepsis. Troponin is trending down. Cardiology was consulted. No aggressive intervention at this time due to patient's advanced Parkinson's disease with dementia. Patient is on aspirin, Plavix, statin, full dose Lovenox however no beta-joana is being used due to patient's. Will start beta joana once blood pressure stable. Patient is now DNR. (3) Normal pressure hydrocephalus Is this a current diagnosis for this admission?: Yes Plan: Could contribute to some of patient's mentation. May consider intervention however not while patient is fully anticoagulated. At this time supportive care may be more appropriate. (4) Parkinson's disease dementia Qualifiers: Dementia behavioral disturbance: without behavioral disturbance Qualified Code(s): G20 - Parkinson's disease; F02.80 - Dementia in other diseases classified elsewhere without behavioral disturbance; F02.80 - Dementia in other diseases classified elsewhere without behavioral disturbance; F02.80 - Dementia in other diseases classified elsewhere without behavioral disturbance Is this a current diagnosis for this admission?: Yes Plan: Continue Sinemet. Continue Resume ativan and trazadone. No ambien. (5) Pneumonia Qualifiers: Pneumonia type: due to unspecified organism Laterality: left Lung location: upper lobe of lung Qualified Code(s): J18.1 - Lobar pneumonia, unspecified organism Is this a current diagnosis for this admission?: Yes Plan: Currently on cefepime and vancomycin and as needed nebulizers. Patient is currently intubated as a complication of his pneumonia. Dr. Curseen pulmonary is consulted and followed closely. Will transition to doxycycline po bid. (6) Sepsis Qualifiers: Sepsis type: sepsis due to unspecified organism Qualified Code(s): A41.9 - Sepsis, unspecified organism Is this a current diagnosis for this admission?: Yes Plan: Resolved, however on this admission, patient did sepsis evidenced by hypotension , fever, leukocytosis with the source being pneumonia. Patient receiving volume resuscitation with normal saline. Patient is being treated with vancomycin cefepime. There is no growth on blood cultures. Vasopressin as needed for hypotension as recommended by cardiology. (7) SunDown syndrome Is this a current diagnosis for this admission?: Yes Plan: Continue ativan and trazadone. Patient now in restraints. - Time Time Spent with patient: Less than 15 minutes Anticipated discharge: SNF Within: when bed available - Awaiting family to make a decision. I am predicting that patient will require placement be it short term or nursing home.
--- NOTE | 2017-07-04 08:25 | PDOC PROGRESS REPORT ---
Subjective Progress Note for:: 07/03/17 Subjective:: Patient is a 82-year-old male with a past medical history of advanced Parkinson' s disease with dementia and delirium admitted on 06/25/2017 with worsening delirium and pneumonia. Patient developed hypercapnic respiratory failure requiring intubation on 06/28/2017. Patient is currently intubated and sedated sedated on minimal vent settings. Patient extubated 06/30. Patient is awake and being fed by family. He is trying sleep but the family is keeping him awake. Reason For Visit: PNEUMONIA,PARKINSON'S DISEASE DEMENTIA Physical Exam Vital Signs: Temp Pulse Resp BP Pulse Ox 98.1 F 83 20 134/54 H 96 07/03/17 16:00 07/03/17 16:00 07/03/17 16:00 07/03/17 16:00 07/03/17 16:00 Pulse Oximeter Continuous Start: 07/01/17 23: 27 Freq: RTQ4 Status: Active Document 07/03/17 16:00 HCR (Rec: 07/03/17 17:53 HCR [email or web address]) Pulse Oximetry Assessment Oxygen Saturation (92-100) 96 Oxygen Delivery Method Room Air Fraction of Inspired Oxygen (FIO2) 21 Equipment Usage Equipment in Use Continuous SpO2 Machine # 13 Intake & Output 07/02/17 07/03/17 07/04/17 06:59 06:59 06:59 Intake Total 1100 240 460 Balance 1100 240 460 Weight 80.5 kg 81.9 kg General appearance: PRESENT: no acute distress, thin, well-developed Eye exam: ABSENT: scleral icterus Mouth exam: PRESENT: moist Teeth exam: PRESENT: edentulous Neck exam: ABSENT: carotid bruit, JVD, lymphadenopathy, thyromegaly Respiratory exam: PRESENT: clear to auscultation luis. ABSENT: rales, rhonchi, wheezes Cardiovascular exam: PRESENT: RRR. ABSENT: diastolic murmur, rubs, systolic murmur GI/Abdominal exam: PRESENT: normal bowel sounds, soft. ABSENT: distended, guarding, mass, organolmegaly, rebound, tenderness Rectal exam: PRESENT: deferred Extremities exam: PRESENT: full ROM. ABSENT: calf tenderness, clubbing, pedal edema Neurological exam: PRESENT: alert, awake, oriented to person, CN II-XII grossly intact. ABSENT: motor sensory deficit Psychiatric exam: PRESENT: appropriate affect, normal mood. ABSENT: homicidal ideation, suicidal ideation Skin exam: PRESENT: dry, intact, warm. ABSENT: cyanosis, rash Results Laboratory Results: 07/02/17 05:30 07/02/17 05:30 06/28/17 06/28/17 06/28/17 00:36 00:36 08:45 Creatine Kinase 337 H 275 H CK-MB (CK-2) 4.99 H Troponin I 0.081 06/28/17 06/28/17 06/28/17 08:45 12:21 12:21 Creatine Kinase 228 H CK-MB (CK-2) 10.60 H 9.38 H Troponin I 1.600 1.470 06/28/17 06/28/17 06/29/17 19:15 19:15 00:50 Creatine Kinase 169 271 H CK-MB (CK-2) 5.33 H Troponin I 1.550 06/29/17 00:50 Creatine Kinase CK-MB (CK-2) 4.65 H Troponin I 1.240 Impressions: Cervical Spine CT 06/25/17 14:27 IMPRESSION: CHRONIC DEGENERATIVE CHANGES. NO ACUTE FINDINGS. Head CT 06/25/17 14:27 IMPRESSION: CHRONIC CHANGES OF ATROPHY AND MICROVASCULAR ISCHEMIA. Again I cannot exclude a component of normal pressure hydrocephalus. No acute intracranial abnormalities are identified. Sinus disease as noted above. Other findings as noted above EVIDENCE OF ACUTE STROKE: NO. KUB X-Ray 06/28/17 00:00 IMPRESSION: Appropriate NG tube. Chest X-Ray 07/02/17 06:00 IMPRESSION: NO CHANGE IN APPEARANCE OF THE CHEST. Assessment & Plan - Diagnosis (1) Acute respiratory failure with hypercapnia Is this a current diagnosis for this admission?: Yes Plan: Possibly secondary to pneumonia. Patient has a left upper lobe and right lower lobe pneumonia. Patient currently intubated and blood gases are significantly improved. Patient extubated on 06/30/2017. Patient doing well since being extubated. (2) Non-STEMI (non-ST elevated myocardial infarction) Is this a current diagnosis for this admission?: Yes Plan: Most likely type II [place] most likely due to his pneumonia and sepsis. Troponin is trending down. Cardiology following. No aggressive intervention at this time due to patient's advanced Parkinson's disease with dementia. Patient is on aspirin, Plavix, statin, full dose Lovenox however no beta-joana is being used due to patient's. Started on low dose beta joana. Patient DNR. (3) Normal pressure hydrocephalus Is this a current diagnosis for this admission?: Yes Plan: Could contribute to some of patient's mentation. May consider intervention however not while patient is fully anticoagulated. At this time supportive care may be more appropriate. (4) Parkinson's disease dementia Qualifiers: Dementia behavioral disturbance: without behavioral disturbance Qualified Code(s): G20 - Parkinson's disease; F02.80 - Dementia in other diseases classified elsewhere without behavioral disturbance; F02.80 - Dementia in other diseases classified elsewhere without behavioral disturbance; F02.80 - Dementia in other diseases classified elsewhere without behavioral disturbance Is this a current diagnosis for this admission?: Yes Plan: Continue Sinemet. Continue Resume ativan and trazadone. No ambien. Will start patient on Seroquel 25mg po QHS. (5) Pneumonia Qualifiers: Pneumonia type: due to unspecified organism Laterality: left Lung location: upper lobe of lung Qualified Code(s): J18.1 - Lobar pneumonia, unspecified organism Is this a current diagnosis for this admission?: Yes Plan: Currently on cefepime and vancomycin and as needed nebulizers. Patient is currently intubated as a complication of his pneumonia. Dr. Evon gonzales is consulted and followed closely. Continue doxycycline po bid. (6) Sepsis Qualifiers: Sepsis type: sepsis due to unspecified organism Qualified Code(s): A41.9 - Sepsis, unspecified organism Is this a current diagnosis for this admission?: Yes Plan: Resolved, however on this admission, patient did sepsis evidenced by hypotension , fever, leukocytosis with the source being pneumonia. Patient receiving volume resuscitation with normal saline. Patient is being treated with vancomycin cefepime. There is no growth on blood cultures. Vasopressin as needed for hypotension as recommended by cardiology. (7) SunDown syndrome Is this a current diagnosis for this admission?: Yes Plan: Continue ativan and trazadone. Patient now in restraints. (8) Hypokalemia Is this a current diagnosis for this admission?: Yes Plan: Patient was given replacement. Will follow up BMP. - Time Time Spent with patient: Less than 15 minutes Anticipated discharge: SNF Within: when bed available - Explained to family that if he cannot work with PT then he cannot go to rehab. It will also be difficulty to determine how well he will do at home. He can have assistance at home. If she feels she cannot manage him at home, then he will need to be placed.
[2017-07-04] MEDS: ASPIRIN 81 MG TABLET, CHEWABLE NG SCH (09:16)
[2017-07-04] MEDS: CHOLECALCIFEROL (D3) 1,000 UNIT TABLET NG SCH (09:16)
[2017-07-04] MEDS: LORATADINE 10 MG TABLET NG SCH (09:16)
[2017-07-04] MEDS: LORAZEPAM 0.5 MG TABLET PO SCH (09:16)
[2017-07-04] MEDS: CLOPIDOGREL BISULFATE 75 MG TABLET PO SCH (09:16)
[2017-07-04] MEDS: DOXYCYCLINE HYCLATE 100 MG TABLET PO SCH ×2 (09:16→22:16)
[2017-07-04] MEDS: TAMSULOSIN HCL 0.4 MG CAP.SR.24H PO SCH (09:17)
[2017-07-04] MEDS: POTASSIUM CHLORIDE 20 MEQ/15 ML UDCUP PO SCH (09:17)
[2017-07-04] MEDS: NICOTINE 21 MG/24 HR PATCH.TD24 TD SCH (09:17)
[2017-07-04] MEDS: FLUTICASONE NASAL SPRAY 50 MCG/SPRY 120 SPRAY/16 GM NASL SCH (09:18)
[2017-07-04] MEDS: ENOXAPARIN SODIUM INJ 80 MG/0.8 ML DISP.SYRIN SUBCUT SCH (09:18)
[2017-07-04] MEDS: METOPROLOL TARTRATE 25 MG TABLET PO SCH ×2 (09:49→22:16)
--- NOTE | 2017-07-04 13:52 | PDOC PROGRESS REPORT ---
Subjective Progress Note for:: 07/04/17 Subjective:: Patient is a 82-year-old male with a past medical history of advanced Parkinson' s disease with dementia and delirium admitted on 06/25/2017 with worsening delirium and pneumonia. Patient developed hypercapnic respiratory failure requiring intubation on 06/28/2017. Patient was successfully extubated 2017. The patient's issues at present include inability to focus and therefore inability to participate with physical therapy. He also has some evidence of sundowning. He has had to be maintained in restraints because he will otherwise pull at his central line and Husain catheter. Reason For Visit: PNEUMONIA,PARKINSON'S DISEASE DEMENTIA Physical Exam Vital Signs: Temp Pulse Resp BP Pulse Ox 98.1 F 101 H 15 153/64 H 94 07/04/17 11:27 07/04/17 11:27 07/04/17 11:27 07/04/17 11:27 07/04/17 11:27 Pulse Oximeter Continuous Start: 07/01/17 23: 27 Freq: RTQ4 Status: Active Document 07/04/17 08:54 HCR (Rec: 07/04/17 11:34 HCR [email or web address]) Pulse Oximetry Assessment Oxygen Saturation (92-100) 88 Oxygen Delivery Method Room Air Fraction of Inspired Oxygen (FIO2) 21 Equipment Usage Equipment in Use Continuous SpO2 Machine # 13 Intake & Output 07/03/17 07/04/17 07/05/17 06:59 06:59 06:59 Intake Total 240 608 Balance 240 608 Weight 81.9 kg 82.7 kg Additional comments: The patient is a frail and elderly appearing white male. He does not participate in my interview. He was restrained. During my exam I was able to evaluate his lungs which demonstrate his breath sounds to be diminished but clear. His cardiac exam is regular without murmurs, gallops or rubs. The abdomen is soft and flat. Bowel sounds are present in all 4 quadrants. He does not have guarding or rebound present and there are no hernias or masses present. The abdomen is otherwise soft. The patient's lower extremities are showing only trace edema. The skin is otherwise warm, dry and intact. There is evidence of some dry skin but no acute lesions or rashes are present. Results Laboratory Results: 07/04/17 04:50 07/04/17 04:50 07/04/17 07/04/17 04:50 04:50 WBC 13.4 H RBC 3.43 L Hgb 11.2 L Hct 33.6 L MCV 98 H MCH 32.7 MCHC 33.4 RDW 13.9 Plt Count 294 Seg Neutrophils % Not Reportable Lymphocytes % Not Reportable Monocytes % Not Reportable Eosinophils % Not Reportable Basophils % Not Reportable Absolute Neutrophils Not Reportable Absolute Lymphocytes Not Reportable Absolute Monocytes Not Reportable Absolute Eosinophils Not Reportable Absolute Basophils Not Reportable Sodium 143.8 Potassium 4.4 Chloride 106 Carbon Dioxide 33 H Anion Gap 5 BUN 23 H Creatinine 0.78 Est GFR ( Amer) > 60 Est GFR (Non-Af Amer) > 60 Glucose 164 H Calcium 9.6 Magnesium 2.1 06/28/17 06/28/17 06/28/17 00:36 00:36 08:45 Creatine Kinase 337 H 275 H CK-MB (CK-2) 4.99 H Troponin I 0.081 06/28/17 06/28/17 06/28/17 08:45 12:21 12:21 Creatine Kinase 228 H CK-MB (CK-2) 10.60 H 9.38 H Troponin I 1.600 1.470 06/28/17 06/28/17 06/29/17 19:15 19:15 00:50 Creatine Kinase 169 271 H CK-MB (CK-2) 5.33 H Troponin I 1.550 06/29/17 00:50 Creatine Kinase CK-MB (CK-2) 4.65 H Troponin I 1.240 Impressions: Cervical Spine CT 06/25/17 14:27 IMPRESSION: CHRONIC DEGENERATIVE CHANGES. NO ACUTE FINDINGS. Head CT 06/25/17 14:27 IMPRESSION: CHRONIC CHANGES OF ATROPHY AND MICROVASCULAR ISCHEMIA. Again I cannot exclude a component of normal pressure hydrocephalus. No acute intracranial abnormalities are identified. Sinus disease as noted above. Other findings as noted above EVIDENCE OF ACUTE STROKE: NO. KUB X-Ray 06/28/17 00:00 IMPRESSION: Appropriate NG tube. Chest X-Ray 07/02/17 06:00 IMPRESSION: NO CHANGE IN APPEARANCE OF THE CHEST. Assessment & Plan - Diagnosis (1) Acute respiratory failure with hypercapnia Is this a current diagnosis for this admission?: Yes Plan: The patient is stable. He was extubated on 06/30/2017. Will monitor for recurrence. (2) Hypokalemia Is this a current diagnosis for this admission?: Yes Plan: Calcium is now 4.4. Therefore, I have stopped supplementation. (3) Non-STEMI (non-ST elevated myocardial infarction) Is this a current diagnosis for this admission?: Yes Plan: Type II. Continue medical management with aspirin, Plavix, statin therapy, and low-dose beta-joana. Lovenox therapy can be discontinued. (4) Normal pressure hydrocephalus Is this a current diagnosis for this admission?: Yes Plan: Continue supportive care. (5) Parkinson's disease dementia Qualifiers: Dementia behavioral disturbance: without behavioral disturbance Qualified Code(s): G20 - Parkinson's disease; F02.80 - Dementia in other diseases classified elsewhere without behavioral disturbance; F02.80 - Dementia in other diseases classified elsewhere without behavioral disturbance; F02.80 - Dementia in other diseases classified elsewhere without behavioral disturbance Is this a current diagnosis for this admission?: Yes Plan: Continue Sinemet, Ativan and trazodone. Seroquel was also added. Avoid Ambien. (6) Pneumonia Qualifiers: Pneumonia type: due to unspecified organism Laterality: left Lung location: upper lobe of lung Qualified Code(s): J18.1 - Lobar pneumonia, unspecified organism Is this a current diagnosis for this admission?: Yes Plan: Initially treated with cefepime, vancomycin. Now on doxycycline. (7) Sepsis Qualifiers: Sepsis type: sepsis due to unspecified organism Qualified Code(s): A41.9 - Sepsis, unspecified organism Is this a current diagnosis for this admission?: Yes Plan: Patient presented with evidence of sepsis on admission with hypotension, fever and leukocytosis. 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 An atypical antipsychotic may prove more beneficial than Ativan. I will change her regimen if needed. - Time Time Spent with patient: 25-34 minutes - Inpatient Certification Medical Necessity: Significant Comorbidiites Make Outpatient Treatment Too Risky , Need Close Monitoring Due to Risk of Patient Decompensation - Plan Summary Plan Summary: Patient appears to be slowly improving. He would likely benefit from skilled placement after discharge. However, if he cannot participate in physical therapy due to dementia he may require permanent placement. Family would like to take him home but wishes for skilled placement prior to this. However, if patient is not participating in a program that could be offered by temporary correction facility placement he may require permanent placement.
[2017-07-04 14:58] LABS: INTERNATIONAL RATION (INR) 1.24; PARTIAL THROMBOPLASTIN TIME 36.3 SEC (23.5-35.8); PROTHROMBIN TIME 16.4 SEC (11.4-15.4)
[2017-07-04 14:59] LABS: HEMATOCRIT 35.7 % (37.9-51.0); HEMOGLOBIN 12.1 g/dL (13.5-17.0); MEAN CORPUSCULAR HGB CONC 33.9 g/dL (32.0-36.0); MEAN CORPUSCULAR VOLUME 97 fl (80-97); PLATELET COUNT 330 10^3/uL (150-450); RED BLOOD COUNT 3.68 10^6/uL (4.35-5.55); RED CELL DISTRIBUTION WIDTH 13.9 % (11.5-14.0); WHITE BLOOD COUNT 15.5 10^3/uL (4.0-10.5)
[2017-07-04] MEDS: SIMVASTATIN 10 MG TABLET NG SCH (18:32)
[2017-07-04] MEDS: QUETIAPINE FUMARATE 25 MG TABLET PO SCH (22:16)
[2017-07-04] MEDS: LORAZEPAM 1 MG TABLET PO SCH (22:16)
[2017-07-04] MEDS: TRAZODONE HCL 50 MG TABLET PO SCH (22:16)
[2017-07-05] MEDS: IPRATROPIUM/ALBUTEROL 0.5-2.5 MG/3 ML AMPUL NEB SCH ×4 (02:32→20:45)
[2017-07-05] MEDS: LANSOPRAZOLE 15 MG TAB.RAP.DR NG SCH (05:30)
[2017-07-05] MEDS: CARBIDOPA/LEVODOPA 25-100 MG TABLET NG SCH ×3 (05:30→21:14)
[2017-07-05] MEDS: CLOPIDOGREL BISULFATE 75 MG TABLET PO SCH (11:40)
[2017-07-05] MEDS: CHOLECALCIFEROL (D3) 1,000 UNIT TABLET NG SCH (11:40)
[2017-07-05] MEDS: LORAZEPAM 0.5 MG TABLET PO SCH (11:40)
[2017-07-05] MEDS: DOXYCYCLINE HYCLATE 100 MG TABLET PO SCH ×2 (11:41→21:13)
[2017-07-05] MEDS: TAMSULOSIN HCL 0.4 MG CAP.SR.24H PO SCH (11:41)
[2017-07-05] MEDS: ASPIRIN 81 MG TABLET, CHEWABLE NG SCH (11:41)
[2017-07-05] MEDS: METOPROLOL TARTRATE 25 MG TABLET PO SCH ×2 (11:41→21:13)
[2017-07-05] MEDS: FLUTICASONE NASAL SPRAY 50 MCG/SPRY 120 SPRAY/16 GM NASL SCH (11:42)
[2017-07-05] MEDS: NICOTINE 21 MG/24 HR PATCH.TD24 TD SCH (11:42)
[2017-07-05] MEDS: LORATADINE 10 MG TABLET NG SCH (11:42)
[2017-07-05] MEDS: ENOXAPARIN SODIUM INJ 40 MG/0.4 ML DISP.SYRIN SUBCUT SCH (11:43)
--- NOTE | 2017-07-05 11:58 | PDOC PROGRESS REPORT ---
Subjective Progress Note for:: 07/05/17 Subjective:: Patient is a 82-year-old male with a past medical history of advanced Parkinson' s disease with dementia and delirium admitted on 06/25/2017 with worsening delirium and pneumonia. Patient developed hypercapnic respiratory failure requiring intubation on 06/28/2017. Patient was successfully extubated 2017. The patient's issues at present include inability to focus and therefore inability to participate with physical therapy. He also has some evidence of sundowning. He has had to be maintained in restraints because he will otherwise pull at his central line. The patient also has evidence of bladder outlet obstruction probably from prostatic hypertrophy. We did do an in and out cath this morning and that was greater than 1 L of urine in his bladder. Reason For Visit: PNEUMONIA,PARKINSON'S DISEASE DEMENTIA Physical Exam Vital Signs: Temp Pulse Resp BP Pulse Ox 98.9 F 105 H 16 129/46 H 94 07/05/17 07:20 07/05/17 07:41 07/05/17 07:41 07/05/17 07:20 07/05/17 11:40 Pulse Oximeter Continuous Start: 07/01/17 23: 27 Freq: RTQ4 Status: Active Document 07/05/17 11:40 TPO (Rec: 07/05/17 11:40 TPO [email or web address]) Pulse Oximetry Assessment Oxygen Saturation (92-100) 94 Oxygen Delivery Method Room Air Fraction of Inspired Oxygen (FIO2) 21 Equipment Usage Equipment in Use Continuous SpO2 Machine # 13 Intake & Output 07/04/17 07/05/17 07/06/17 06:59 06:59 06:59 Intake Total 608 282 Output Total 1 Balance 608 281 Weight 82.7 kg 82 kg Additional comments: The patient is a frail, elderly white male. He does not track with his eyes. He does not answer any of my questions. He is noted to have coarse breath sounds bilaterally. His cardiac exam is regular without murmurs, gallops or rubs. The abdomen is soft and flat. Bowel sounds are noted in the lower quadrants. He does not have any guarding or rebound present and there are no hernias or masses. The lower extremities demonstrate bilateral 1+ edema. The skin is otherwise warm, dry and intact without lesions or rashes. Results Laboratory Results: 07/04/17 14:24 07/04/17 14:24 07/04/17 07/04/17 14:24 14:24 WBC 15.5 H RBC 3.68 L Hgb 12.1 L Hct 35.7 L MCV 97 MCH 33.0 MCHC 33.9 RDW 13.9 Plt Count 330 Creatinine 0.82 Est GFR ( Amer) > 60 Est GFR (Non-Af Amer) > 60 06/28/17 06/28/17 06/28/17 00:36 00:36 08:45 Creatine Kinase 337 H 275 H CK-MB (CK-2) 4.99 H Troponin I 0.081 06/28/17 06/28/17 06/28/17 08:45 12:21 12:21 Creatine Kinase 228 H CK-MB (CK-2) 10.60 H 9.38 H Troponin I 1.600 1.470 06/28/17 06/28/17 06/29/17 19:15 19:15 00:50 Creatine Kinase 169 271 H CK-MB (CK-2) 5.33 H Troponin I 1.550 06/29/17 00:50 Creatine Kinase CK-MB (CK-2) 4.65 H Troponin I 1.240 Impressions: Cervical Spine CT 06/25/17 14:27 IMPRESSION: CHRONIC DEGENERATIVE CHANGES. NO ACUTE FINDINGS. Head CT 06/25/17 14:27 IMPRESSION: CHRONIC CHANGES OF ATROPHY AND MICROVASCULAR ISCHEMIA. Again I cannot exclude a component of normal pressure hydrocephalus. No acute intracranial abnormalities are identified. Sinus disease as noted above. Other findings as noted above EVIDENCE OF ACUTE STROKE: NO. KUB X-Ray 06/28/17 00:00 IMPRESSION: Appropriate NG tube. Chest X-Ray 07/02/17 06:00 IMPRESSION: NO CHANGE IN APPEARANCE OF THE CHEST. Assessment & Plan - Diagnosis (1) Acute respiratory failure with hypercapnia Is this a current diagnosis for this admission?: Yes Plan: The patient is stable. He was extubated on 06/30/2017. Will monitor for recurrence. (2) Hypokalemia Is this a current diagnosis for this admission?: Yes Plan: Resolved. I have stopped supplementation. (3) Non-STEMI (non-ST elevated myocardial infarction) Is this a current diagnosis for this admission?: Yes Plan: Type II. Continue medical management with aspirin, Plavix, statin therapy, and low-dose beta-joana. Lovenox therapy can be discontinued. (4) Normal pressure hydrocephalus Is this a current diagnosis for this admission?: Yes Plan: Continue supportive care. (5) Parkinson's disease dementia Qualifiers: Dementia behavioral disturbance: without behavioral disturbance Qualified Code(s): G20 - Parkinson's disease; F02.80 - Dementia in other diseases classified elsewhere without behavioral disturbance; F02.80 - Dementia in other diseases classified elsewhere without behavioral disturbance; F02.80 - Dementia in other diseases classified elsewhere without behavioral disturbance Is this a current diagnosis for this admission?: Yes Plan: Continue Sinemet, Ativan and trazodone. Seroquel was also added. Avoid Ambien. (6) Pneumonia Qualifiers: Pneumonia type: due to unspecified organism Laterality: left Lung location: upper lobe of lung Qualified Code(s): J18.1 - Lobar pneumonia, unspecified organism Is this a current diagnosis for this admission?: Yes Plan: Initially treated with cefepime, vancomycin. Now on doxycycline. (7) Sepsis Qualifiers: Sepsis type: sepsis due to unspecified organism Qualified Code(s): A41.9 - Sepsis, unspecified organism Is this a current diagnosis for this admission?: Yes Plan: Patient presented with evidence of sepsis on admission with hypotension, fever and leukocytosis. 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 An atypical antipsychotic may prove more beneficial than Ativan. I will change her regimen if needed. (9) Leucocytosis Is this a current diagnosis for this admission?: Yes Plan: White blood cell count has gone up slightly. I am on the look out for a new infection. Due to bladder outlet obstruction I will check urine first. (10) Urinary retention Is this a current diagnosis for this admission?: Yes Plan: Check urine culture. If patient is still unable to void appropriately I will Place Husain catheter. - Time Time Spent with patient: 25-34 minutes - Inpatient Certification Medical Necessity: Significant Comorbidiites Make Outpatient Treatment Too Risky , Need Close Monitoring Due to Risk of Patient Decompensation, Need for Neurological Checks
[2017-07-05 15:35] LABS: AMORPHOUS SEDIMENT,URINE TRACE /HPF; APPEARANCE,URINE CLOUDY; BILIRUBIN,URINE NEGATIVE (NEGATIVE); COLOR,URINE AMBER; GLUCOSE, URINE NEGATIVE (NEGATIVE); KETONES,URINE NEGATIVE (NEGATIVE); LEUKOCYTE ESTERASE,URINE NEGATIVE (NEGATIVE); NITRITE,URINE NEGATIVE (NEGATIVE); PROTEIN,URINE 30 mg/dL (NEGATIVE); URINE SPECIFIC GRAVITY 1.017; UROBILINOGEN,URINE NEGATIVE mg/dL (<2.0)
[2017-07-05] MEDS: SIMVASTATIN 10 MG TABLET NG SCH (17:03)
[2017-07-05] MEDS: LORAZEPAM 1 MG TABLET PO SCH (21:13)
[2017-07-05] MEDS: QUETIAPINE FUMARATE 25 MG TABLET PO SCH (22:38)
[2017-07-05] MEDS: TRAZODONE HCL 50 MG TABLET PO SCH (22:38)
[2017-07-06] MEDS: IPRATROPIUM/ALBUTEROL 0.5-2.5 MG/3 ML AMPUL NEB SCH ×4 (02:08→20:14)
[2017-07-06] MEDS: LANSOPRAZOLE 15 MG TAB.RAP.DR NG SCH (05:13)
[2017-07-06] MEDS: CARBIDOPA/LEVODOPA 25-100 MG TABLET NG SCH ×2 (05:14→13:54)
[2017-07-06 07:21] LABS: HEMATOCRIT 32.8 % (37.9-51.0); HEMOGLOBIN 11.1 g/dL (13.5-17.0); MEAN CORPUSCULAR HEMOGLOBIN 33.1 pg (27.0-33.4); MEAN CORPUSCULAR HGB CONC 33.7 g/dL (32.0-36.0); MEAN CORPUSCULAR VOLUME 98 fl (80-97); PLATELET COUNT 322 10^3/uL (150-450); RED BLOOD COUNT 3.35 10^6/uL (4.35-5.55); RED CELL DISTRIBUTION WIDTH 13.9 % (11.5-14.0)
[2017-07-06 07:43] LABS: ALANINE AMINOTRANSFERASE 32 U/L (21-72); ALBUMIN 2.7 g/dL (3.5-5.0); ALKALINE PHOSPHATASE 137 U/L (38-126); ANION GAP 9 (5-19); ASPARTATE AMINO TRANSFERASE 104 U/L (17-59); BILIRUBIN,DIRECT 0.8 mg/dL (0.0-0.4); BILIRUBIN,TOTAL 1.1 mg/dL (0.2-1.3); BLOOD UREA NITROGEN 44 mg/dL (7-20); CALCIUM 9.6 mg/dL (8.4-10.2); CARBON DIOXIDE 32 mmol/L (22-30); CHLORIDE 112 mmol/L (98-107); GLUCOSE 109 mg/dL (75-110); MAGNESIUM 2.4 mg/dL (1.6-2.3); PHOSPHORUS 3.8 mg/dL (2.5-4.5); POTASSIUM 3.8 mmol/L (3.6-5.0); SODIUM 152.8 mmol/L (137-145); TOTAL PROTEIN 5.5 g/dL (6.3-8.2)
[2017-07-06 08:12] LABS: ABSOLUTE LYMPHOCYTES# (MANUAL) 0.6 10^3/uL (0.5-4.7); ABSOLUTE NEUTROPHILS# (MANUAL) 17.5 10^3/uL (1.7-8.2); BASOPHILS % (MANUAL) 0 % (0-2); EOSINOPHILS % (MANUAL) 0 % (0-6); LYMPHOCYTES % (MANUAL) 3 % (13-45); MONOCYTES % (MANUAL) 5 % (3-13); SEGMENTED NEUTROPHILS % (MAN) 92 % (42-78); TOTAL CELLS COUNTED 100
[2017-07-06 08:13] LABS: PLATELET COMMENT ADEQUATE; RBC MORPHOLOGY COMMENT NORMO-CYTIC/CHROMIC
[2017-07-06] MEDS: CLOPIDOGREL BISULFATE 75 MG TABLET PO SCH (10:28)
[2017-07-06] MEDS: TAMSULOSIN HCL 0.4 MG CAP.SR.24H PO SCH (10:28)
[2017-07-06] MEDS: ENOXAPARIN SODIUM INJ 40 MG/0.4 ML DISP.SYRIN SUBCUT SCH (10:29)
[2017-07-06] MEDS: ASPIRIN 81 MG TABLET, CHEWABLE NG SCH (10:29)
[2017-07-06] MEDS: LORAZEPAM 0.5 MG TABLET PO SCH (10:29)
[2017-07-06] MEDS: LORATADINE 10 MG TABLET NG SCH (10:30)
[2017-07-06] MEDS: CHOLECALCIFEROL (D3) 1,000 UNIT TABLET NG SCH (10:30)
[2017-07-06] MEDS: DOXYCYCLINE HYCLATE 100 MG TABLET PO SCH ×2 (10:31→22:02)
[2017-07-06] MEDS: METOPROLOL TARTRATE 25 MG TABLET PO SCH ×2 (10:31→22:01)
[2017-07-06] MEDS: FLUTICASONE NASAL SPRAY 50 MCG/SPRY 120 SPRAY/16 GM NASL SCH (10:32)
[2017-07-06] MEDS: NICOTINE 21 MG/24 HR PATCH.TD24 TD SCH (10:32)
--- NOTE | 2017-07-06 13:08 | PDOC PROGRESS REPORT ---
Subjective Progress Note for:: 07/06/17 Subjective:: Patient is a 82-year-old male with a past medical history of advanced Parkinson' s disease with dementia and delirium admitted on 06/25/2017 with worsening delirium and pneumonia. Patient developed hypercapnic respiratory failure requiring intubation on 06/28/2017. Patient was successfully extubated 2017. The patient's issues at present include inability to focus and therefore inability to participate with physical therapy. He also has some evidence of sundowning. He has had to be maintained in restraints because he will otherwise pull at his central line. The patient also has evidence of bladder outlet obstruction probably from prostatic hypertrophy. In and out cath from yesterday demonstrated a liter of urine in the bladder. Patient continued to have high residuals after in and out cath and now has an indwelling Husain catheter in place. Today, the patient was the most interactive with me that he has ever been. Reason For Visit: PNEUMONIA,PARKINSON'S DISEASE DEMENTIA Physical Exam Vital Signs: Temp Pulse Resp BP Pulse Ox 98.2 F 91 18 133/50 H 91 L 07/06/17 11:37 07/06/17 11:37 07/06/17 11:37 07/06/17 11:37 07/06/17 11:37 Pulse Oximeter Continuous Start: 07/01/17 23: 27 Freq: RTQ4 Status: Active Document 07/06/17 07:44 [facility] (Rec: 07/06/17 10:28 [facility] [id number]) Pulse Oximetry Assessment Oxygen Saturation (92-100) 92 Oxygen Flow Rate (L/min) 2 Oxygen Delivery Method Nasal Cannula Equipment Usage Equipment in Use Continuous SpO2 Machine # 13 Intake & Output 07/05/17 07/06/17 07/07/17 06:59 06:59 06:59 Intake Total 282 398 0 Output Total 1 2830 500 Balance 985 -2397 -500 Weight 82 kg 77.8 kg Additional comments: The patient continues to appear very frail. He is talkative this morning but does not make any sense and his dialogue is in cohesive. His lungs remain coarse but overall, the rhonchi are improved. The cardiac exam is distant but appears to be regular. The abdomen is soft and flat. Bowel sounds are present in the lower quadrants. He does not have guarding or rebound noted and there are no hernias or masses present. The lower extremities demonstrate trace to 1 + edema. Results Laboratory Results: 07/06/17 06:32 07/06/17 06:32 07/05/17 07/06/17 07/06/17 15:15 06:32 06:32 WBC 19.0 H RBC 3.35 L Hgb 11.1 L Hct 32.8 L MCV 98 H MCH 33.1 MCHC 33.7 RDW 13.9 Plt Count 322 Seg Neutrophils % Not Reportable Lymphocytes % Not Reportable Monocytes % Not Reportable Eosinophils % Not Reportable Basophils % Not Reportable Absolute Neutrophils Not Reportable Absolute Lymphocytes Not Reportable Absolute Monocytes Not Reportable Absolute Eosinophils Not Reportable Absolute Basophils Not Reportable Sodium 152.8 H Potassium 3.8 Chloride 112 H Carbon Dioxide 32 H Anion Gap 9 BUN 44 H Creatinine 1.01 Est GFR ( Amer) > 60 Est GFR (Non-Af Amer) > 60 Glucose 109 Calcium 9.6 Phosphorus 3.8 Magnesium 2.4 H Total Bilirubin 1.1 AST 104 H ALT 32 Alkaline Phosphatase 137 H Total Protein 5.5 L Albumin 2.7 L Urine Color CHEMA Urine Appearance CLOUDY Urine pH 5.0 Ur Specific [place] 1.017 Urine Protein 30 H Urine Glucose (UA) NEGATIVE Urine Ketones NEGATIVE Urine Blood LARGE H Urine Nitrite NEGATIVE Ur Leukocyte Esterase NEGATIVE Urine RBC (Auto) >182 06/28/17 06/28/17 06/28/17 00:36 00:36 08:45 Creatine Kinase 337 H 275 H CK-MB (CK-2) 4.99 H Troponin I 0.081 06/28/17 06/28/17 06/28/17 08:45 12:21 12:21 Creatine Kinase 228 H CK-MB (CK-2) 10.60 H 9.38 H Troponin I 1.600 1.470 06/28/17 06/28/17 06/29/17 19:15 19:15 00:50 Creatine Kinase 169 271 H CK-MB (CK-2) 5.33 H Troponin I 1.550 06/29/17 00:50 Creatine Kinase CK-MB (CK-2) 4.65 H Troponin I 1.240 Impressions: Cervical Spine CT 06/25/17 14:27 IMPRESSION: CHRONIC DEGENERATIVE CHANGES. NO ACUTE FINDINGS. Head CT 06/25/17 14:27 IMPRESSION: CHRONIC CHANGES OF ATROPHY AND MICROVASCULAR ISCHEMIA. Again I cannot exclude a component of normal pressure hydrocephalus. No acute intracranial abnormalities are identified. Sinus disease as noted above. Other findings as noted above EVIDENCE OF ACUTE STROKE: NO. KUB X-Ray 06/28/17 00:00 IMPRESSION: Appropriate NG tube. Chest X-Ray 07/02/17 06:00 IMPRESSION: NO CHANGE IN APPEARANCE OF THE CHEST. Assessment & Plan - Diagnosis (1) Acute respiratory failure with hypercapnia Is this a current diagnosis for this admission?: Yes Plan: The patient is stable. He was extubated on 06/30/2017. Will monitor for recurrence. (2) Hypokalemia Is this a current diagnosis for this admission?: Yes Plan: Resolved. I have stopped supplementation. (3) Non-STEMI (non-ST elevated myocardial infarction) Is this a current diagnosis for this admission?: Yes Plan: Type II. Continue medical management with aspirin, Plavix, statin therapy, and low-dose beta-joana. Lovenox therapy can be discontinued. (4) Normal pressure hydrocephalus Is this a current diagnosis for this admission?: Yes Plan: Continue supportive care. (5) Parkinson's disease dementia Qualifiers: Dementia behavioral disturbance: without behavioral disturbance Qualified Code(s): G20 - Parkinson's disease; F02.80 - Dementia in other diseases classified elsewhere without behavioral disturbance; F02.80 - Dementia in other diseases classified elsewhere without behavioral disturbance; F02.80 - Dementia in other diseases classified elsewhere without behavioral disturbance Is this a current diagnosis for this admission?: Yes Plan: Continue Sinemet, Ativan and trazodone. Seroquel was also added. Avoid Ambien. (6) Pneumonia Qualifiers: Pneumonia type: due to unspecified organism Laterality: left Lung location: upper lobe of lung Qualified Code(s): J18.1 - Lobar pneumonia, unspecified organism Is this a current diagnosis for this admission?: Yes Plan: Initially treated with cefepime, vancomycin. Now on doxycycline. (7) Sepsis Qualifiers: Sepsis type: sepsis due to unspecified organism Qualified Code(s): A41.9 - Sepsis, unspecified organism Is this a current diagnosis for this admission?: Yes Plan: Patient presented with evidence of sepsis on admission with hypotension, fever and leukocytosis. 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 An atypical antipsychotic may prove more beneficial than Ativan. I will change her regimen if needed. (9) Leucocytosis Is this a current diagnosis for this admission?: Yes Plan: White blood cell count has gone up slightly. I am on the look out for a new infection. Due to bladder outlet obstruction I will check urine first. (10) Urinary retention Is this a current diagnosis for this admission?: Yes Plan: Check urine culture. Continue Husain catheter. (11) Hypernatremia Is this a current diagnosis for this admission?: Yes Plan: Begin D5W (12) Elevated liver enzymes Is this a current diagnosis for this admission?: Yes Plan: We will order right upper quadrant as patient is persistently leukocyte ptosis and may have cholecystitis although clinically this does not appear to be evident. - Time Time Spent with patient: 25-34 minutes - Inpatient Certification Medical Necessity: Significant Comorbidiites Make Outpatient Treatment Too Risky , Need Close Monitoring Due to Risk of Patient Decompensation, Need For IV Fluids, Need for Neurological Checks
--- NOTE | 2017-07-06 14:22 | RADIOLOGY REPORT (SQ) ---
EXAM DESCRIPTION: CHEST SINGLE VIEW COMPLETED DATE/TIME: 07/06/2017 1:42 pm REASON FOR STUDY: leucocytosis COMPARISON: Chest films 06/25/2017, 07/01/2017, 07/02/2017 EXAM PARAMETERS: NUMBER OF VIEWS: One view. TECHNIQUE: Single frontal radiographic view of the chest acquired. RADIATION DOSE: NA LIMITATIONS: None. FINDINGS: LUNGS AND PLEURA: On the right side, there is airspace disease in the medial right lung ba se, likely in the medial right lower lobe. Left perihilar airspace disease seen on 06/25/2017 has resolved. There are mild increased interstitial markings at both bases, stable. No pleural effusion. No pneum othorax. MEDIASTINUM AND HILAR STRUCTURES: No masses. Contour normal. HEART AND VASCULAR STRUCTURES: Heart normal in size. Normal vasculature. BONES: No acute findings. HARDWARE: None in the chest. OTHER: No other significant finding. IMPRESSION: Consolidation in the medial right lung base atelectasis versus pneumonia TECHNICAL DOCUMENTATION: JOB ID: [id number] [employer]- All Rights Reserved
[2017-07-06] MEDS: DEXTROSE 5%-WATER 1000 ML 1,000 ML IV PRN (14:48)
--- NOTE | 2017-07-06 16:58 | Progress Note ---
Provider Note Provider Note: The patient has a new infiltrate on chest x-ray. I am starting antibiotics for hospital-acquired pneumonia to cover gram positives, gram negatives and anaerobes.
[2017-07-06] MEDS ORDERED: VANCOMYCIN HCL 0 MG in DEXTROSE 5%-WATER 250 ML IV NR (17:00)
[2017-07-06] MEDS: SIMVASTATIN 10 MG TABLET PO SCH (18:15)
[2017-07-06] MEDS ORDERED: MAG HYDROX/AL HYDROX/SIMETH SUSP 30 ML UDCUP PO PRN (18:30)
[2017-07-06] MEDS ORDERED: DEXTROSE 40% GEL 15 GM TUBE PO PRN ×2 (18:30)
[2017-07-06] MEDS ORDERED: ACETAMINOPHEN 325 MG TABLET ONE (20:27)
[2017-07-06] MEDS: CEFEPIME 1 GM/D5W RTU 1 GM/50 ML RTUPB IV SCH (21:22)
[2017-07-06] MEDS ORDERED: CARBIDOPA/LEVODOPA 25-100 MG TABLET PO ONE (22:00)
[2017-07-06] MEDS: LORAZEPAM 1 MG TABLET PO SCH (22:02)
[2017-07-06] MEDS: CARBIDOPA/LEVODOPA 25-100 MG TABLET PO SCH (22:03)
[2017-07-06] MEDS: VANCOMYCIN HCL 750 MG in DEXTROSE 5%-WATER 250 ML IV SCH (22:12)
[2017-07-06] MEDS: TRAZODONE HCL 50 MG TABLET PO SCH (22:13)
[2017-07-06] MEDS: QUETIAPINE FUMARATE 25 MG TABLET PO SCH (22:13)
[2017-07-07] MEDS: ACETAMINOPHEN 325 MG TABLET PO PRN ×4 (01:12→23:45)
[2017-07-07] MEDS: IPRATROPIUM/ALBUTEROL 0.5-2.5 MG/3 ML AMPUL NEB SCH ×4 (02:08→19:38)
[2017-07-07] MEDS: DEXTROSE 5%-WATER 1000 ML 1,000 ML IV PRN (03:05)
--- NOTE | 2017-07-07 03:16 | RADIOLOGY REPORT (SQ) ---
EXAM DESCRIPTION: U/S ABDOMEN LIMITED W/O DOP COMPLETED DATE/TIME: 07/07/2017 2:46 am REASON FOR STUDY: Leucocytosis with elevated liver function tests J15.9 UNSPECIFIED BACTERIAL PNEUM ONIA COMPARISON: Aorta ultrasound 01/27/2016. CT abdomen and pelvis 07/22/2011. TECHNIQUE: Grayscale images acquired of the right upper quadrant and recorded on PACS. Additional se lected color Doppler and spectral images recorded. LIMITATIONS: Patient's body habitus and constant motion during the exam. Overlying bowel gas. FINDINGS: PANCREAS: Partially obscured by overlying bowel gas. The visualized pancreas in the midli ne is unremarkable. LIVER: Measures 14.4 cm. Echotexture normal. LIVER VASCULATURE: Normal directional flow of the main portal vein. GALLBLADDER: No stones. Normal wall thickness. No pericholecystic fluid. ULTRASOUND-DETECTED MIXON'S SIGN: Negative. INTRAHEPATIC DUCTS AND COMMON DUCT: CBD and intrahepatic ducts normal caliber. No filling defects. INFERIOR VENA CAVA: Obscured. AORTA: Atherosclerotic calcifications at the abdominal aorta. No aneurysm at the visualized proximal and mid segments, the distal abdominal aorta was obscured. RIGHT KIDNEY: Measures 9.1 cm in length. Normal echogenicity. There is a 2.1 cm cortical anechoic a radha, may represent a cyst. No hydronephrosis. No calcifications. PERITONEAL AND RIGHT PLEURAL SPACE: No ascites or effusion. IMPRESSION: No acute findings. No cholelithiasis. No biliary ductal dilation. TECHNICAL DOCUMENTATION: JOB ID: [id number] [employer]- All Rights Reserved
[2017-07-07] MEDS: CARBIDOPA/LEVODOPA 25-100 MG TABLET PO SCH ×3 (05:02→21:09)
[2017-07-07] MEDS: LANSOPRAZOLE 15 MG TAB.RAP.DR PO SCH (05:03)
[2017-07-07 06:23] LABS: ANION GAP 7 (5-19); BLOOD UREA NITROGEN 40 mg/dL (7-20); CALCIUM 9.1 mg/dL (8.4-10.2); CARBON DIOXIDE 33 mmol/L (22-30); CHLORIDE 112 mmol/L (98-107); GLUCOSE 177 mg/dL (75-110); POTASSIUM 3.7 mmol/L (3.6-5.0); SODIUM 151.7 mmol/L (137-145)
[2017-07-07] MEDS: CEFEPIME 1 GM/D5W RTU 1 GM/50 ML RTUPB IV SCH ×2 (10:08→21:12)
[2017-07-07] MEDS: LORAZEPAM 0.5 MG TABLET PO SCH (10:09)
[2017-07-07] MEDS: CHOLECALCIFEROL (D3) 1,000 UNIT TABLET NG SCH (10:09)
[2017-07-07] MEDS: LORATADINE 10 MG TABLET PO SCH (10:09)
[2017-07-07] MEDS: FLUTICASONE NASAL SPRAY 50 MCG/SPRY 120 SPRAY/16 GM NASL SCH (10:09)
[2017-07-07] MEDS: TAMSULOSIN HCL 0.4 MG CAP.SR.24H PO SCH (10:09)
[2017-07-07] MEDS: DOXYCYCLINE HYCLATE 100 MG TABLET PO SCH (10:09)
[2017-07-07] MEDS: NICOTINE 21 MG/24 HR PATCH.TD24 TD SCH (10:09)
[2017-07-07] MEDS: CLOPIDOGREL BISULFATE 75 MG TABLET PO SCH (10:09)
[2017-07-07] MEDS: METOPROLOL TARTRATE 25 MG TABLET PO SCH ×2 (10:09→21:08)
[2017-07-07] MEDS: ASPIRIN 81 MG TABLET, CHEWABLE PO SCH (10:09)
[2017-07-07] MEDS: ENOXAPARIN SODIUM INJ 40 MG/0.4 ML DISP.SYRIN SUBCUT SCH (10:10)
[2017-07-07] MEDS: VANCOMYCIN HCL 750 MG in DEXTROSE 5%-WATER 250 ML IV SCH ×2 (10:11→22:31)
[2017-07-07] MEDS: IPRATROPIUM/ALBUTEROL 0.5-2.5 MG/3 ML AMPUL NEB PRN (12:05)
--- NOTE | 2017-07-07 12:09 | PDOC PROGRESS REPORT ---
Subjective Progress Note for:: 07/07/17 Subjective:: Patient is a 82-year-old male with a past medical history of advanced Parkinson' s disease with dementia and delirium admitted on 06/25/2017 with worsening delirium and pneumonia. Patient developed hypercapnic respiratory failure requiring intubation on 06/28/2017. Patient was successfully extubated 2017. The patient's issues at present include inability to focus and therefore inability to participate with physical therapy. He also has some evidence of owning. He has had to be maintained in restraints because he will otherwise pull at his IV sites. The patient also has evidence of bladder outlet obstruction probably from prostatic hypertrophy. In and out cath on Wednesday demonstrated greater than a liter of fluid. The patient continued to have high residuals and therefore has an indwelling Husain catheter. On Wednesday the patient was noted to have an increased sodium level and therefore was placed on D5W. On Wednesday the patient was noted to have persistent leukocytosis. His chest x-ray demonstrates a new infiltrate concerning for hospital-acquired pneumonia. He is antibiotic therapy was augmented with vancomycin and cefepime. Due to abnormal LFTs a right upper quadrant ultrasound was also performed. This shows a questionable renal cyst but is otherwise unremarkable for biliary disease. The patient remains confused and unable to participate in his care. The patient did not receive his Sinemet for 2 days. Apparently, this did not get automatically renewed on the AUG. Yesterday, I did initiate a discussion with the daughter regarding hospice. She is still hopeful that her father will improve, but, if he does not improve she would be willing to consider home hospice. She was going to discuss this with other family members. Reason For Visit: PNEUMONIA,PARKINSON'S DISEASE DEMENTIA Physical Exam Vital Signs: Temp Pulse Resp BP Pulse Ox 98.8 F 99 15 116/55 L 97 07/07/17 08:15 07/07/17 08:15 07/07/17 08:15 07/07/17 08:15 07/07/17 11:45 Pulse Oximeter Continuous Start: 07/01/17 23: 27 Freq: RTQ4 Status: Active Document 07/07/17 11:45 [facility] (Rec: 07/07/17 11:46 [facility] [email or web address]) Pulse Oximetry Assessment Oxygen Saturation (92-100) 97 Oxygen Flow Rate (L/min) 2 Oxygen Delivery Method Nasal Cannula Equipment Usage Equipment in Use Continuous SpO2 Machine # 13 Intake & Output 07/06/17 07/07/17 07/08/17 06:59 06:59 06:59 Intake Total 398 1858 Output Total 1450 1425 Balance -1052 433 Weight 77.8 kg 80.3 kg Additional comments: She was sitting up. He was attempting to eat but having difficulty with swallowing. The patient does try to communicate but it is incomprehensible. The patient's lungs are coarse bilaterally, but, improved when compared to yesterday. His cardiac exam demonstrates a regular rate and rhythm without murmurs, gallops or rubs. The abdomen is soft. Bowel sounds are present in the lower quadrants. He does not have guarding or rebound noted and there are no hernias or masses present. The patient has 1+ edema in the lower extremities. The skin is otherwise warm, dry and intact. Results Laboratory Results: 07/06/17 06:32 07/07/17 05:29 07/07/17 05:29 Sodium 151.7 H Potassium 3.7 Chloride 112 H Carbon Dioxide 33 H Anion Gap 7 BUN 40 H Creatinine 1.08 Est GFR ( Amer) > 60 Est GFR (Non-Af Amer) > 60 Glucose 177 H Calcium 9.1 07/05/17 15:15 Clean Catch Midstream Urine Culture - Final NO GROWTH 2 DAYS 06/28/17 06/28/17 06/28/17 00:36 00:36 08:45 Creatine Kinase 337 H 275 H CK-MB (CK-2) 4.99 H Troponin I 0.081 06/28/17 06/28/17 06/28/17 08:45 12:21 12:21 Creatine Kinase 228 H CK-MB (CK-2) 10.60 H 9.38 H Troponin I 1.600 1.470 06/28/17 06/28/17 06/29/17 19:15 19:15 00:50 Creatine Kinase 169 271 H CK-MB (CK-2) 5.33 H Troponin I 1.550 06/29/17 00:50 Creatine Kinase CK-MB (CK-2) 4.65 H Troponin I 1.240 Impressions: Cervical Spine CT 06/25/17 14:27 IMPRESSION: CHRONIC DEGENERATIVE CHANGES. NO ACUTE FINDINGS. Head CT 06/25/17 14:27 IMPRESSION: CHRONIC CHANGES OF ATROPHY AND MICROVASCULAR ISCHEMIA. Again I cannot exclude a component of normal pressure hydrocephalus. No acute intracranial abnormalities are identified. Sinus disease as noted above. Other findings as noted above EVIDENCE OF ACUTE STROKE: NO. KUB X-Ray 06/28/17 00:00 IMPRESSION: Appropriate NG tube. Chest X-Ray 07/06/17 00:00 IMPRESSION: Consolidation in the medial right lung base atelectasis versus pneumonia Abdomen Ultrasound 07/07/17 00:00 IMPRESSION: No acute findings. No cholelithiasis. No biliary ductal dilation. Assessment & Plan - Diagnosis (1) Acute respiratory failure with hypercapnia Is this a current diagnosis for this admission?: Yes Plan: The patient is stable. He was extubated on 06/30/2017. Will monitor for recurrence. (2) Hypokalemia Is this a current diagnosis for this admission?: Yes Plan: Resolved. I have stopped supplementation. (3) Non-STEMI (non-ST elevated myocardial infarction) Is this a current diagnosis for this admission?: Yes Plan: Type II. Continue medical management with aspirin, Plavix, statin therapy, and low-dose beta-joana. Lovenox therapy can be discontinued. (4) Normal pressure hydrocephalus Is this a current diagnosis for this admission?: Yes Plan: Continue supportive care. (5) Parkinson's disease dementia Qualifiers: Dementia behavioral disturbance: without behavioral disturbance Qualified Code(s): G20 - Parkinson's disease; F02.80 - Dementia in other diseases classified elsewhere without behavioral disturbance; F02.80 - Dementia in other diseases classified elsewhere without behavioral disturbance; F02.80 - Dementia in other diseases classified elsewhere without behavioral disturbance Is this a current diagnosis for this admission?: Yes Plan: Continue Sinemet, Ativan and trazodone. Seroquel was also added. Avoid Ambien. (6) Pneumonia Qualifiers: Pneumonia type: due to unspecified organism Laterality: left Lung location: upper lobe of lung Qualified Code(s): J18.1 - Lobar pneumonia, unspecified organism Is this a current diagnosis for this admission?: Yes Plan: Initially treated with cefepime, vancomycin. Then switched to doxycycline. However, patient has a new infiltrate on chest x-ray and have resumed cefepime and vancomycin. (7) Sepsis Qualifiers: Sepsis type: sepsis due to unspecified organism Qualified Code(s): A41.9 - Sepsis, unspecified organism Is this a current diagnosis for this admission?: Yes Plan: Patient presented with evidence of sepsis on admission with hypotension, fever and leukocytosis. 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 Patient is also on Seroquel. (9) Leucocytosis Is this a current diagnosis for this admission?: Yes Plan: On Wednesday a repeat chest x-ray demonstrated a new right lower lobe infiltrate. Therefore, the patient was placed back on IV medications with cefepime and vancomycin. I did not check blood cultures because the patient does not have a fever. Due to increased LFTs I did order a right upper quadrant ultrasound. There is no evidence of biliary disease. (10) Urinary retention Is this a current diagnosis for this admission?: Yes Plan: Check urine culture. Continue Husain catheter. (11) Hypernatremia Is this a current diagnosis for this admission?: Yes Plan: D5W was started yesterday. I will increase the rate. Patient is still quite hypernatremic. Will need to monitor closely for volume overload. (12) Elevated liver enzymes Is this a current diagnosis for this admission?: Yes Plan: Right upper quadrant ultrasound did not demonstrate evidence of cholecystitis. Monitor LFTs. - Time Time Spent with patient: 25-34 minutes - Inpatient Certification Medical Necessity: Need For IV Fluids, Need for IV Antibiotics
[2017-07-07] MEDS ORDERED: DEXTROSE 5%-WATER 1000 ML 1,000 ML IV PRN (12:11)
[2017-07-07] MEDS ORDERED: LORAZEPAM 1 MG TABLET PO SCH (13:40)
[2017-07-07] MEDS: SIMVASTATIN 10 MG TABLET PO SCH (18:18)
[2017-07-07] MEDS ORDERED: KETOROLAC TROMETHAMINE INJ/PF 30 MG/1 ML SDV IV PRN (20:32)
[2017-07-07] MEDS: TRAZODONE HCL 50 MG TABLET PO SCH (21:12)
[2017-07-07] MEDS: QUETIAPINE FUMARATE 25 MG TABLET PO SCH (21:12)
[2017-07-07] MEDS ORDERED: LORAZEPAM 0.5 MG TABLET PO SCH (22:00)
[2017-07-08] MEDS: IPRATROPIUM/ALBUTEROL 0.5-2.5 MG/3 ML AMPUL NEB SCH ×4 (02:19→19:53)
[2017-07-08] MEDS: CARBIDOPA/LEVODOPA 25-100 MG TABLET PO SCH ×3 (05:17→21:51)
[2017-07-08] MEDS: LANSOPRAZOLE 15 MG TAB.RAP.DR PO SCH (05:18)
[2017-07-08 06:13] LABS: ABSOLUTE BASOPHILS # (AUTO) 0.1 10^3/uL (0.0-0.2); ABSOLUTE EOSINOPHILS # (AUTO) 0.3 10^3/uL (0.0-0.6); ABSOLUTE LYMPHOCYTES (AUTO) 0.9 10^3/uL (0.5-4.7); ABSOLUTE MONOCYTES (AUTO) 0.9 10^3/uL (0.1-1.4); ABSOLUTE NEUT (AUTO) 15.3 10^3/uL (1.7-8.2); BASOPHILS % (AUTO) 0.5 % (0-2); EOSINOPHILS % (AUTO) 1.5 % (0-6); HEMOGLOBIN 10.1 g/dL (13.5-17.0); LYMPHOCYTES % (AUTO) 5.2 % (13-45); MEAN CORPUSCULAR HEMOGLOBIN 32.1 pg (27.0-33.4); MEAN CORPUSCULAR HGB CONC 32.5 g/dL (32.0-36.0); MEAN CORPUSCULAR VOLUME 99 fl (80-97); MONOCYTES % (AUTO) 5.3 % (3-13); PLATELET COUNT 352 10^3/uL (150-450); RED BLOOD COUNT 3.13 10^6/uL (4.35-5.55); RED CELL DISTRIBUTION WIDTH 13.7 % (11.5-14.0); SEGMENTED NEUTROPHILS % (AUTO) 87.5 % (42-78); TOTAL CELLS COUNTED % (AUTO) 100 %; WHITE BLOOD COUNT 17.5 10^3/uL (4.0-10.5)
[2017-07-08 06:34] LABS: ALANINE AMINOTRANSFERASE 46 U/L (21-72); ALBUMIN 2.4 g/dL (3.5-5.0); ALKALINE PHOSPHATASE 141 U/L (38-126); ANION GAP 6 (5-19); ASPARTATE AMINO TRANSFERASE 111 U/L (17-59); BILIRUBIN,DIRECT 1.8 mg/dL (0.0-0.4); BLOOD UREA NITROGEN 33 mg/dL (7-20); CALCIUM 8.7 mg/dL (8.4-10.2); CARBON DIOXIDE 31 mmol/L (22-30); CHLORIDE 105 mmol/L (98-107); GLUCOSE 132 mg/dL (75-110); MAGNESIUM 2.2 mg/dL (1.6-2.3); PHOSPHORUS 3.2 mg/dL (2.5-4.5); POTASSIUM 3.3 mmol/L (3.6-5.0); SODIUM 142.3 mmol/L (137-145); TOTAL PROTEIN 5.1 g/dL (6.3-8.2)
[2017-07-08] MEDS: DEXTROSE 5%-WATER 1000 ML 1,000 ML IV PRN ×2 (07:11→14:52)
[2017-07-08] MEDS ORDERED: LORAZEPAM 0.5 MG TABLET PO SCH (10:00)
[2017-07-08] MEDS: NICOTINE 21 MG/24 HR PATCH.TD24 TD SCH (10:13)
[2017-07-08] MEDS: ACETAMINOPHEN 325 MG TABLET PO PRN ×4 (10:14→23:34)
[2017-07-08] MEDS: CHOLECALCIFEROL (D3) 1,000 UNIT TABLET NG SCH (10:14)
[2017-07-08] MEDS: CLOPIDOGREL BISULFATE 75 MG TABLET PO SCH (10:14)
[2017-07-08] MEDS: LORATADINE 10 MG TABLET PO SCH (10:14)
[2017-07-08] MEDS: ASPIRIN 81 MG TABLET, CHEWABLE PO SCH (10:15)
[2017-07-08] MEDS: METOPROLOL TARTRATE 25 MG TABLET PO SCH ×2 (10:15→21:51)
[2017-07-08] MEDS: TAMSULOSIN HCL 0.4 MG CAP.SR.24H PO SCH (10:15)
[2017-07-08] MEDS: ENOXAPARIN SODIUM INJ 40 MG/0.4 ML DISP.SYRIN SUBCUT SCH (10:16)
[2017-07-08] MEDS: FLUTICASONE NASAL SPRAY 50 MCG/SPRY 120 SPRAY/16 GM NASL SCH (10:18)
[2017-07-08] MEDS: CEFEPIME 1 GM/D5W RTU 1 GM/50 ML RTUPB IV SCH (10:18)
[2017-07-08] MEDS: LORAZEPAM 0.5 MG TABLET PO SCH ×2 (10:20→21:51)
[2017-07-08] MEDS: VANCOMYCIN HCL 750 MG in DEXTROSE 5%-WATER 250 ML IV SCH (10:33)
[2017-07-08 10:56] LABS: VANCOMYCIN,TROUGH 9.1 ug/mL (5.0-20.0)
--- NOTE | 2017-07-08 18:07 | PDOC PROGRESS REPORT ---
Subjective Progress Note for:: 07/08/17 Subjective:: Unable to obtain due to mental status Review of systems Unable to obtain due to mental status All laboratories and significant diagnostics have been reviewed Reason For Visit: PNEUMONIA,PARKINSON'S DISEASE DEMENTIA Physical Exam Vital Signs: Temp Pulse Resp BP Pulse Ox 99.0 F 96 18 136/56 H 96 07/08/17 07:26 07/08/17 07:48 07/08/17 07:48 07/08/17 07:26 07/08/17 07:48 Pulse Oximeter Continuous Start: 07/01/17 23: 27 Freq: RTQ4 Status: Active Document 07/08/17 07:48 [facility] (Rec: 07/08/17 10:05 [facility] [email or web address]) Pulse Oximetry Assessment Oxygen Saturation (92-100) 96 Oxygen Flow Rate (L/min) 2 Oxygen Delivery Method Nasal Cannula Equipment Usage Equipment in Use Continuous SpO2 Machine # 13 Intake & Output 07/07/17 07/08/17 07/09/17 06:59 06:59 06:59 Intake Total 1858 3718 Output Total 1425 1200 Balance 433 2518 Weight 80.3 kg 80 kg General appearance: PRESENT: no acute distress, thin Head exam: PRESENT: atraumatic, normocephalic Eye exam: PRESENT: EOMI, PERRLA Ear exam: PRESENT: normal external ear exam Mouth exam: PRESENT: moist Neck exam: PRESENT: full ROM. ABSENT: JVD, lymphadenopathy, tenderness Respiratory exam: PRESENT: clear to auscultation luis Cardiovascular exam: PRESENT: RRR. ABSENT: diastolic murmur, systolic murmur Vascular exam: PRESENT: normal capillary refill GI/Abdominal exam: PRESENT: normal bowel sounds. ABSENT: soft, tenderness Extremities exam: PRESENT: full ROM, joint swelling. ABSENT: pedal edema Neurological exam: PRESENT: alert, awake, oriented to person, oriented to place , oriented to time, CN II-XII grossly intact Psychiatric exam: PRESENT: appropriate affect, normal mood Skin exam: PRESENT: intact, normal color Results Laboratory Results: 07/08/17 05:38 07/08/17 05:38 07/08/17 07/08/17 05:38 05:38 WBC 17.5 H RBC 3.13 L Hgb 10.1 L Hct 31.0 L MCV 99 H MCH 32.1 MCHC 32.5 RDW 13.7 Plt Count 352 Seg Neutrophils % 87.5 H Lymphocytes % 5.2 L Monocytes % 5.3 Eosinophils % 1.5 Basophils % 0.5 Absolute Neutrophils 15.3 H Absolute Lymphocytes 0.9 Absolute Monocytes 0.9 Absolute Eosinophils 0.3 Absolute Basophils 0.1 Sodium 142.3 Potassium 3.3 L Chloride 105 Carbon Dioxide 31 H Anion Gap 6 BUN 33 H Creatinine 0.98 Est GFR ( Amer) > 60 Est GFR (Non-Af Amer) > 60 Glucose 132 H Calcium 8.7 Phosphorus 3.2 Magnesium 2.2 Total Bilirubin 2.0 H AST 111 H ALT 46 Alkaline Phosphatase 141 H Total Protein 5.1 L Albumin 2.4 L 07/05/17 15:15 Clean Catch Midstream Urine Culture - Final NO GROWTH 2 DAYS 06/28/17 06/28/17 06/28/17 00:36 00:36 08:45 Creatine Kinase 337 H 275 H CK-MB (CK-2) 4.99 H Troponin I 0.081 06/28/17 06/28/17 06/28/17 08:45 12:21 12:21 Creatine Kinase 228 H CK-MB (CK-2) 10.60 H 9.38 H Troponin I 1.600 1.470 06/28/17 06/28/17 06/29/17 19:15 19:15 00:50 Creatine Kinase 169 271 H CK-MB (CK-2) 5.33 H Troponin I 1.550 06/29/17 00:50 Creatine Kinase CK-MB (CK-2) 4.65 H Troponin I 1.240 Impressions: Cervical Spine CT 06/25/17 14:27 IMPRESSION: CHRONIC DEGENERATIVE CHANGES. NO ACUTE FINDINGS. Head CT 06/25/17 14:27 IMPRESSION: CHRONIC CHANGES OF ATROPHY AND MICROVASCULAR ISCHEMIA. Again I cannot exclude a component of normal pressure hydrocephalus. No acute intracranial abnormalities are identified. Sinus disease as noted above. Other findings as noted above EVIDENCE OF ACUTE STROKE: NO. KUB X-Ray 06/28/17 00:00 IMPRESSION: Appropriate NG tube. Chest X-Ray 07/06/17 00:00 IMPRESSION: Consolidation in the medial right lung base atelectasis versus pneumonia Abdomen Ultrasound 07/07/17 00:00 IMPRESSION: No acute findings. No cholelithiasis. No biliary ductal dilation. Assessment & Plan - Diagnosis (1) Dysphagia Qualifiers: Dysphagia type: unspecified Qualified Code(s): R13.10 - Dysphagia, unspecified Is this a current diagnosis for this admission?: Yes Plan: Patient speech therapy some swallowing difficulty. Cookie swallow ordered (2) Pneumonia Qualifiers: Pneumonia type: due to unspecified organism Laterality: left Lung location: upper lobe of lung Qualified Code(s): J18.1 - Lobar pneumonia, unspecified organism Is this a current diagnosis for this admission?: Yes Plan: Discontinue cefepime and place on Zosyn. Continue vancomycin (3) SunDown syndrome Is this a current diagnosis for this admission?: Yes Plan: Continue restraints as needed (4) Urinary retention Is this a current diagnosis for this admission?: Yes Plan: Still requiring Husain cath. (5) Hypokalemia Is this a current diagnosis for this admission?: Yes Plan: Replace IV and trend - Time Time Spent with patient: 15-24 minutes Medications reviewed and adjusted accordingly: Yes Anticipated discharge: Home with Homehealth Within: within 72 hours - Inpatient Certification Based on my medical assessment, after consideration of the patient's comorbidities, presenting symptoms, or acuity I expect that the services needed warrant INPATIENT care.: Yes I certify that my determination is in accordance with my understanding of Medicare's requirements for reasonable and necessary INPATIENT services [42 CFR 412.3e].: Yes Medical Necessity: Need Close Monitoring Due to Risk of Patient Decompensation, Need For IV Fluids, Need for IV Antibiotics
[2017-07-08] MEDS: SIMVASTATIN 10 MG TABLET PO SCH (19:10)
[2017-07-08] MEDS: PIPERACILLIN SODIUM/TAZOBACTAM 3.375 GM in NORMAL SALINE 100 ML IV SCH ×2 (19:11→23:34)
[2017-07-08] MEDS: POTASSI CL 40 MEQ/D5-1/2NS 1L 40 MEQ/1,000 ML RTUINJ IV PRN (19:15)
[2017-07-08] MEDS: QUETIAPINE FUMARATE 25 MG TABLET PO SCH (21:51)
[2017-07-08] MEDS: VANCOMYCIN HCL 1,250 MG in DEXTROSE 5%-WATER 250 ML IV SCH (21:52)
[2017-07-08] MEDS: TRAZODONE HCL 50 MG TABLET PO SCH (21:52)
[2017-07-09] MEDS: IPRATROPIUM/ALBUTEROL 0.5-2.5 MG/3 ML AMPUL NEB SCH ×4 (02:10→19:53)
[2017-07-09] MEDS: CARBIDOPA/LEVODOPA 25-100 MG TABLET PO SCH (05:40)
[2017-07-09] MEDS: ACETAMINOPHEN 325 MG TABLET PO PRN (05:41)
[2017-07-09] MEDS: LANSOPRAZOLE 15 MG TAB.RAP.DR PO SCH (05:41)
[2017-07-09] MEDS: PIPERACILLIN SODIUM/TAZOBACTAM 3.375 GM in NORMAL SALINE 100 ML IV SCH ×4 (05:41→23:17)
[2017-07-09 06:27] LABS: HEMATOCRIT 30.7 % (37.9-51.0); HEMOGLOBIN 10.2 g/dL (13.5-17.0); MEAN CORPUSCULAR HEMOGLOBIN 32.3 pg (27.0-33.4); MEAN CORPUSCULAR HGB CONC 33.2 g/dL (32.0-36.0); MEAN CORPUSCULAR VOLUME 97 fl (80-97); PLATELET COUNT 346 10^3/uL (150-450); RED BLOOD COUNT 3.15 10^6/uL (4.35-5.55); WHITE BLOOD COUNT 18.2 10^3/uL (4.0-10.5)
[2017-07-09 06:33] LABS: BLOOD UREA NITROGEN 24 mg/dL (7-20); CALCIUM 8.2 mg/dL (8.4-10.2); CARBON DIOXIDE 30 mmol/L (22-30); CHLORIDE 102 mmol/L (98-107); GLUCOSE 102 mg/dL (75-110); POTASSIUM 3.6 mmol/L (3.6-5.0)
[2017-07-09 06:34] LABS: ANION GAP 10 (5-19); MAGNESIUM 2.1 mg/dL (1.6-2.3); SODIUM 141.6 mmol/L (137-145)
[2017-07-09 06:54] LABS: ABSOLUTE LYMPHOCYTES# (MANUAL) 1.1 10^3/uL (0.5-4.7); ABSOLUTE MONOCYTES # (MANUAL) 0.9 10^3/uL (0.1-1.4); BASOPHILS % (MANUAL) 1 % (0-2); EOSINOPHILS % (MANUAL) 0 % (0-6); LYMPHOCYTES % (MANUAL) 6 % (13-45); MONOCYTES % (MANUAL) 5 % (3-13); SEGMENTED NEUTROPHILS % (MAN) 88 % (42-78); TOTAL CELLS COUNTED 100
[2017-07-09 07:13] LABS: ANISOCYTOSIS SLIGHT; PLATELET COMMENT ADEQUATE; POLYCHROMASIA SLIGHT; TOXIC GRANULATION SLIGHT
[2017-07-09] MEDS: IPRATROPIUM/ALBUTEROL 0.5-2.5 MG/3 ML AMPUL NEB PRN (09:06)
[2017-07-09] MEDS ORDERED: GLUCAGON,HUMAN RECOMB 1 MG INJ SUBCUT PRN (09:48)
[2017-07-09] MEDS ORDERED: DEXTROSE 50%-WATER 25 GM/50 ML DISP.SYRIN IV PRN ×2 (09:48)
[2017-07-09] MEDS ORDERED: DEXTROSE 40% GEL 15 GM TUBE PO PRN ×2 (09:48)
[2017-07-09] MEDS: CHOLECALCIFEROL (D3) 1,000 UNIT TABLET NG SCH (10:18)
[2017-07-09] MEDS: ASPIRIN 81 MG TABLET, CHEWABLE PO SCH (10:18)
[2017-07-09] MEDS: VANCOMYCIN HCL 1,250 MG in DEXTROSE 5%-WATER 250 ML IV SCH ×2 (10:26→23:16)
[2017-07-09] MEDS: NICOTINE 21 MG/24 HR PATCH.TD24 TD SCH (10:28)
[2017-07-09] MEDS: ENOXAPARIN SODIUM INJ 40 MG/0.4 ML DISP.SYRIN SUBCUT SCH (10:30)
[2017-07-09] MEDS: FLUTICASONE NASAL SPRAY 50 MCG/SPRY 120 SPRAY/16 GM NASL SCH (10:32)
--- NOTE | 2017-07-09 11:45 | ST Inp Modified Barium Swallow ---
Medical Diagnosis - Medical Diagnoses Medical Diagnosis Description & ICD-10 Code(s): Dysphagia (R13.10) - ICD-10 Tx Diagnosis Coding (1) Dysphagia ICD-10 Code(s): R13.10 - DYSPHAGIA, UNSPECIFIED ST Inpatient [facility] [place] - General Date: 07/09/17 Date of Onset: 07/08/17 - History -: Medical Medications: Medications Reviewed Allergies: No known allergies - Subjective Current Nutritional Means: PO Current PO Diet: Regular Current Symptoms: Coughing Pain: unable to communicate, no signs/symptoms of pain - Objective Assessment: Upright, Left Lateral - Food Trials Food Trials Used: Thin liquids, [place] thick liquids, Pureed The Patient: fed by ST - Assessment Labial Function: Within Normal Limits Lingual Function: Within Normal Limits Dentition: Edentulous Laryngeal Function: no volitional swallow, no volitional cough/clear - Pharyngeal Stage Initiation of Pharyngeal Stage: Delayed Reflex Delay Time (seconds): 60 - no swallow with pudding; cleared with liquid wash Decreased Laryngeal Elevation: Yes Reduced Velo-Pharyngeal Closure: yes Reduced Pressure Generation: Yes Reduced Tongue Base Retraction: Yes Pre-Swallowing Pooling in Valleculae: Significant - with pudding; none with thin Pre-Swallowing Pooling in Pyriforms: Significant - with pudding; none with thin liquids Reduced Thyro-Hyiod Approximation: Yes Reduced Epiglottic Excursion: Yes Multiple Swallows With: Ineffective Clearance - Patient did not initiate secondary swallow despite multiple verbal cues Post Swallow Residuals in Valleculae: Significant - with pudding Post Swallow Residuals in Pyriforms: Significant - with pudding - Impression/Summary Laryngeal Penetration: Yes, Silent, during swallow - with thin liquids and nectar thick liquids, after swallow - with pudding Tracheal Aspiration: yes, silent - with thin, cough - with pudding Effective Clearing: no Patient Presents With: Pharyngeal stage dysph., Profound Risk of Aspiration: Severe Risk of Nutritional Compromise: Severe - Recommendations NPO: yes Dysphagia Therapy with [employer]: Inpatient - will follow up to trial ice chip trials and sips of water - Time Total Time: 25 - patient's son educated Total Timed Minutes: 25
[2017-07-09] MEDS: POTASSI CL 40 MEQ/D5-1/2NS 1L 40 MEQ/1,000 ML RTUINJ IV PRN (12:20)
--- NOTE | 2017-07-09 14:08 | RADIOLOGY REPORT (SQ) ---
EXAM DESCRIPTION: DIONNA SWALLOW COMPLETED DATE/TIME: 07/09/2017 8:32 am REASON FOR STUDY: dysphagia J15.9 UNSPECIFIED BACTERIAL PNEUMONIA COMPARISON: None. TECHNIQUE: Videofluoroscopic swallowing examination was performed in conjunction with speech patholo gy. Videofluoroscopic imaging was obtained and reviewed and these are the findings: RADIATION DOSE: Fluoro time 3.12 minutes 1 images saved to PACS. LIMITATIONS: None FINDINGS: The patient was brought into the fluoro room and placed upright on a modified barium swall ow chair. The patient was then given multiple consistencies mixed with barium to swallow under live fluoroscopic video guidance. According to the Speech Pathologist there was laryngeal penetration see n with thin, nectar thick and pureed consistencies. Deep laryngeal penetration to the level of the v ocal cords was seen from residuals. No definite aspiration identified. Note is made of bulky anterior osteophyte formations in the lower cervical spine, with minimal hang u p of barium seen in this area. Please refer to the speech pathology report for further details. IMPRESSION: Deep laryngeal penetration to the vocal cords from residuals, without definite aspiratio n identified.PLEASE SEE SPEECH PATHOLOGIST REPORT FOR OTHER FINDINGS AND RECOMMENDATIONS. COMMENT: None Quality ID [id number]: Final reports for procedures using fluoroscopy that document radiation exposure ye fly, or exposure time and number of fluorographic images (if radiation exposure indices are not avail able) TECHNICAL DOCUMENTATION: JOB ID: [id number] [employer]- All Rights Reserved
--- NOTE | 2017-07-09 16:13 | PDOC PROGRESS REPORT ---
Subjective Progress Note for:: 07/09/17 Subjective:: Unable to obtain due to mental status. Patient is on and daughter (who is the POA) were updated about patient's medical condition and that swallowing study revealed aspiration. They were explained the options as far as how to proceed. That is the pros and cons about inserting a PEG tube versus allowing him to eat despite the dangers of aspirating or keep him n.p.o. and place him on hospice. We offered to order a CT scan to evaluate for the possibility of a stroke though less likely as it appears that difficulty swallowing relates to Parkinson's disease. The opted to evaluate for the possibility of a stroke. Review of systems Unable to obtain due to mental status All laboratories and significant diagnostics have been reviewed Reason For Visit: ACUTE MCA Physical Exam Vital Signs: Temp Pulse Resp BP Pulse Ox 98.9 F 87 18 106/54 L 97 07/09/17 07:33 07/09/17 09:11 07/09/17 09:11 07/09/17 07:33 07/09/17 09:11 Pulse Oximeter Continuous Start: 07/01/17 23: 27 Freq: RTQ4 Status: Active Document 07/09/17 09:11 J (Rec: 07/09/17 09:13 J [email or web address]) Pulse Oximetry Assessment Oxygen Saturation (92-100) 95 Oxygen Flow Rate (L/min) 4 Oxygen Delivery Method Nasal Cannula Equipment Usage Equipment in Use Continuous SpO2 Machine # 13 Intake & Output 07/08/17 07/09/17 07/10/17 06:59 06:59 06:59 Intake Total 3718 2249 Output Total 1200 1550 Balance 2518 699 Weight 80 kg 83 kg General appearance: PRESENT: cooperative, thin Head exam: PRESENT: atraumatic, normocephalic Eye exam: PRESENT: EOMI, PERRLA Ear exam: PRESENT: normal external ear exam Neck exam: PRESENT: full ROM. ABSENT: JVD, lymphadenopathy Respiratory exam: PRESENT: decreased breath sounds, rhonchi Cardiovascular exam: PRESENT: RRR. ABSENT: diastolic murmur, systolic murmur Vascular exam: PRESENT: normal capillary refill GI/Abdominal exam: PRESENT: normal bowel sounds, soft. ABSENT: tenderness Extremities exam: PRESENT: full ROM. ABSENT: joint swelling, pedal edema Neurological exam: PRESENT: other - sedated Focused psych exam: PRESENT: restlessness Skin exam: PRESENT: intact, normal color Results Laboratory Results: 07/09/17 05:25 07/09/17 05:25 07/09/17 07/09/17 05:25 05:25 WBC 18.2 H RBC 3.15 L Hgb 10.2 L Hct 30.7 L MCV 97 MCH 32.3 MCHC 33.2 RDW 14.0 Plt Count 346 Seg Neutrophils % Not Reportable Lymphocytes % Not Reportable Monocytes % Not Reportable Eosinophils % Not Reportable Basophils % Not Reportable Absolute Neutrophils Not Reportable Absolute Lymphocytes Not Reportable Absolute Monocytes Not Reportable Absolute Eosinophils Not Reportable Absolute Basophils Not Reportable Sodium 141.6 Potassium 3.6 Chloride 102 Carbon Dioxide 30 Anion Gap 10 BUN 24 H Creatinine 0.96 Est GFR ( Amer) > 60 Est GFR (Non-Af Amer) > 60 Glucose 102 Calcium 8.2 L Magnesium 2.1 06/28/17 06/28/17 06/28/17 00:36 00:36 08:45 Creatine Kinase 337 H 275 H CK-MB (CK-2) 4.99 H Troponin I 0.081 06/28/17 06/28/17 06/28/17 08:45 12:21 12:21 Creatine Kinase 228 H CK-MB (CK-2) 10.60 H 9.38 H Troponin I 1.600 1.470 06/28/17 06/28/17 06/29/17 19:15 19:15 00:50 Creatine Kinase 169 271 H CK-MB (CK-2) 5.33 H Troponin I 1.550 06/29/17 00:50 Creatine Kinase CK-MB (CK-2) 4.65 H Troponin I 1.240 Impressions: Cervical Spine CT 06/25/17 14:27 IMPRESSION: CHRONIC DEGENERATIVE CHANGES. NO ACUTE FINDINGS. Head CT 06/25/17 14:27 IMPRESSION: CHRONIC CHANGES OF ATROPHY AND MICROVASCULAR ISCHEMIA. Again I cannot exclude a component of normal pressure hydrocephalus. No acute intracranial abnormalities are identified. Sinus disease as noted above. Other findings as noted above EVIDENCE OF ACUTE STROKE: NO. KUB X-Ray 06/28/17 00:00 IMPRESSION: Appropriate NG tube. Chest X-Ray 07/06/17 00:00 IMPRESSION: Consolidation in the medial right lung base atelectasis versus pneumonia Abdomen Ultrasound 07/07/17 00:00 IMPRESSION: No acute findings. No cholelithiasis. No biliary ductal dilation. Assessment & Plan - Diagnosis (1) Dysphagia Qualifiers: Dysphagia type: unspecified Qualified Code(s): R13.10 - Dysphagia, unspecified Is this a current diagnosis for this admission?: Yes Plan: To keep n.p.o. for now. To order CT of the head (2) Pneumonia Qualifiers: Pneumonia type: due to unspecified organism Laterality: left Lung location: upper lobe of lung Qualified Code(s): J18.1 - Lobar pneumonia, unspecified organism Is this a current diagnosis for this admission?: Yes Plan: Continue Zosyn and vancomycin (3) SunDown syndrome Is this a current diagnosis for this admission?: Yes Plan: Continue restraints as needed. Family declining any sedatives (4) Urinary retention Is this a current diagnosis for this admission?: Yes Plan: Still requiring Husain cath. (5) Hypokalemia Is this a current diagnosis for this admission?: Yes Plan: Replace IV and trend - Time Time Spent with patient: 15-24 minutes Medications reviewed and adjusted accordingly: Yes Anticipated discharge: SNF Within: within 72 hours - Inpatient Certification Based on my medical assessment, after consideration of the patient's comorbidities, presenting symptoms, or acuity I expect that the services needed warrant INPATIENT care.: Yes I certify that my determination is in accordance with my understanding of Medicare's requirements for reasonable and necessary INPATIENT services [42 CFR 412.3e].: Yes Medical Necessity: Need Close Monitoring Due to Risk of Patient Decompensation, Need for IV Antibiotics
--- NOTE | 2017-07-09 16:28 | RADIOLOGY REPORT (SQ) ---
EXAM DESCRIPTION: CT HEAD WITHOUT COMPLETED DATE/TIME: 07/09/2017 4:08 pm REASON FOR STUDY: dysphagia/eval for stroke J15.9 UNSPECIFIED BACTERIAL PNEUMONIA COMPARISON: 02/29/2012, 06/25/2017 CT brain TECHNIQUE: Axial images acquired through the brain without intravenous contrast. Images reviewed wi th bone, brain and subdural windows. Images stored on PACS. All CT scanners at this facility use dose modulation, iterative reconstruction, and/or weight based d osing when appropriate to reduce radiation dose to as low as reasonably achievable (ALARA). [facility]: Dose Right [facility]: CareDose [facility]: Dose Right [facility]: Teradose 4D [facility]: [employer] RADIATION DOSE: CT Rad equipment meets quality standard of care and radiation dose reduction techniq ues were employed. CTDIvol: 47.0 - 49.0 mGy. DLP: 1239 mGy-cm. mGy. LIMITATIONS: Mild motion artifact FINDINGS: VENTRICLES: Prominence of ventricles out of proportion to sulci and sylvian fissures, kya lar compared to 2011. Question normal pressure hydrocephalus CEREBRUM: No masses. No hemorrhage. No midline shift. No evidence for acute infarction. Extensive areas of low density in the white matter most likely chronic small vessel ischemic changes. CEREBELLUM: No masses. No hemorrhage. No alteration of density. No evidence for acute infarction. EXTRAAXIAL SPACES: No fluid collections. No masses. ORBITS AND GLOBE: No intra- or extraconal masses. Normal contour of globe without masses. CALVARIUM: No fracture. PARANASAL SINUSES: Air-fluid levels in the right frontal sinus and bilateral sphenoid sinuses likely from sinusitis. Mild mucous membrane thickening in the bilateral ethmoid air cells and left maxillar y sinus SOFT TISSUES: No mass or hematoma. OTHER: No other significant finding. IMPRESSION: No CT evidence of acute ischemic change, acute intracranial hemorrhage, mass effect, or midline shift. Dilated ventricles out of proportion to sulci and sylvian fissures, similar compared to 2012 Right frontal and bilateral sphenoid sinusitis EVIDENCE OF ACUTE STROKE: NO. COMMENT: Quality ID # [id number]: Final reports with documentation of one or more dose reduction techniques (e.g., Automated exposure control, adjustment of the mA and/or kV according to patient size, use of iterative reconstruction technique) TECHNICAL DOCUMENTATION: JOB ID: [id number]- All Rights Reserved
[2017-07-09] MEDS: ACETAMINOPHEN 650 MG SUPP.RECT PR PRN (16:53)
[2017-07-09] MEDS ORDERED: LORAZEPAM INJ 2 MG/1 ML VIAL IV ONE (23:15)
[2017-07-10] MEDS: IPRATROPIUM/ALBUTEROL 0.5-2.5 MG/3 ML AMPUL NEB SCH ×4 (01:18→20:25)
[2017-07-10] MEDS: PIPERACILLIN SODIUM/TAZOBACTAM 3.375 GM in NORMAL SALINE 100 ML IV SCH ×3 (06:03→17:25)
[2017-07-10] MEDS: POTASSI CL 40 MEQ/D5-1/2NS 1L 40 MEQ/1,000 ML RTUINJ IV PRN ×2 (06:08→23:13)
[2017-07-10] MEDS ORDERED: CARBIDOPA/LEVODOPA 25-250 MG TABLET PO ONE (10:00)
[2017-07-10] MEDS: FLUTICASONE NASAL SPRAY 50 MCG/SPRY 120 SPRAY/16 GM NASL SCH (10:31)
[2017-07-10] MEDS: VANCOMYCIN HCL 1,250 MG in DEXTROSE 5%-WATER 250 ML IV SCH ×2 (10:31→23:12)
[2017-07-10] MEDS: ENOXAPARIN SODIUM INJ 40 MG/0.4 ML DISP.SYRIN SUBCUT SCH (10:31)
[2017-07-10] MEDS: CHOLECALCIFEROL (D3) 1,000 UNIT TABLET NG SCH (10:31)
[2017-07-10] MEDS: NICOTINE 21 MG/24 HR PATCH.TD24 TD SCH (10:31)
[2017-07-10] MEDS: ASPIRIN 81 MG TABLET, CHEWABLE PO SCH (10:31)
[2017-07-10] MEDS: CARBIDOPA/LEVODOPA 25-250 MG TABLET PO SCH ×2 (13:03→23:11)
--- NOTE | 2017-07-10 14:13 | PDOC PROGRESS REPORT ---
Subjective Progress Note for:: 07/10/17 Subjective:: Unable to obtain due to mental status. Patient is on and daughter (who is the POA) were updated about patient's medical condition and that swallowing study revealed aspiration. They were explained the options as far as how to proceed. That is the pros and cons about inserting a PEG tube versus allowing him to eat despite the dangers of aspirating or keep him n.p.o. and place him on hospice. We offered to order a CT scan to evaluate for the possibility of a stroke though less likely as it appears that difficulty swallowing relates to Parkinson's disease. The opted to evaluate for the possibility of a stroke. Review of systems Unable to obtain due to mental status All laboratories and significant diagnostics have been reviewed Reason For Visit: ACUTE MCA Physical Exam Vital Signs: Temp Pulse Resp BP Pulse Ox 100.6 F H 61 20 125/48 L 95 07/09/17 20:01 07/10/17 02:00 07/10/17 01:18 07/09/17 20:01 07/10/17 04:00 Pulse Oximeter Continuous Start: 07/01/17 23: 27 Freq: RTQ4 Status: Active Document 07/10/17 04:00 STI (Rec: 07/10/17 05:28 STI [email or web address]) Pulse Oximetry Assessment Oxygen Saturation (92-100) 95 Oxygen Flow Rate (L/min) 3.0 Oxygen Delivery Method Nasal Cannula Fraction of Inspired Oxygen (FIO2) 32 Equipment Usage Equipment in Use Continuous SpO2 Machine # [id number] Intake & Output 07/09/17 07/10/17 07/11/17 06:59 06:59 06:59 Intake Total 2249 110 Output Total 1550 975 Balance 699 -865 Weight 83 kg General appearance: PRESENT: no acute distress, cooperative, thin Head exam: PRESENT: atraumatic, normocephalic Eye exam: PRESENT: EOMI, PERRLA Ear exam: PRESENT: normal external ear exam Mouth exam: PRESENT: moist Neck exam: PRESENT: full ROM. ABSENT: JVD, lymphadenopathy, tenderness Respiratory exam: PRESENT: decreased breath sounds, rhonchi Cardiovascular exam: PRESENT: RRR. ABSENT: diastolic murmur, systolic murmur Vascular exam: PRESENT: normal capillary refill GI/Abdominal exam: PRESENT: normal bowel sounds, soft. ABSENT: tenderness Extremities exam: PRESENT: clubbing, full ROM Musculoskeletal exam: PRESENT: ambulatory Neurological exam: PRESENT: alert, awake, oriented to person, CN II-XII grossly intact Psychiatric exam: PRESENT: appropriate affect, normal mood Skin exam: PRESENT: intact, normal color Results Laboratory Results: 07/09/17 05:25 07/09/17 05:25 06/28/17 06/28/17 06/28/17 00:36 00:36 08:45 Creatine Kinase 337 H 275 H CK-MB (CK-2) 4.99 H Troponin I 0.081 06/28/17 06/28/17 06/28/17 08:45 12:21 12:21 Creatine Kinase 228 H CK-MB (CK-2) 10.60 H 9.38 H Troponin I 1.600 1.470 06/28/17 06/28/17 06/29/17 19:15 19:15 00:50 Creatine Kinase 169 271 H CK-MB (CK-2) 5.33 H Troponin I 1.550 06/29/17 00:50 Creatine Kinase CK-MB (CK-2) 4.65 H Troponin I 1.240 Impressions: Cervical Spine CT 06/25/17 14:27 IMPRESSION: CHRONIC DEGENERATIVE CHANGES. NO ACUTE FINDINGS. KUB X-Ray 06/28/17 00:00 IMPRESSION: Appropriate NG tube. Chest X-Ray 07/06/17 00:00 IMPRESSION: Consolidation in the medial right lung base atelectasis versus pneumonia Abdomen Ultrasound 07/07/17 00:00 IMPRESSION: No acute findings. No cholelithiasis. No biliary ductal dilation. Head CT 07/09/17 00:00 IMPRESSION: No CT evidence of acute ischemic change, acute intracranial hemorrhage, mass effect, or midline shift. Dilated ventricles out of proportion to sulci and sylvian fissures, similar compared to 2011 Right frontal and bilateral sphenoid sinusitis EVIDENCE OF ACUTE STROKE: NO. Modified Barium Swallow 07/09/17 00:00 IMPRESSION: Deep laryngeal penetration to the vocal cords from residuals, without definite aspiration identified.PLEASE SEE SPEECH PATHOLOGIST REPORT FOR OTHER FINDINGS AND RECOMMENDATIONS. Assessment & Plan - Diagnosis (1) Dysphagia Qualifiers: Dysphagia type: unspecified Qualified Code(s): R13.10 - Dysphagia, unspecified Is this a current diagnosis for this admission?: Yes Plan: CT scan obtained and no signs of acute stroke but ischemic changes. It is my understanding that family opted for patient to be fed and where aware that patient will continue aspirating. 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 Family declining any sedatives (4) Urinary retention Is this a current diagnosis for this admission?: Yes Plan: Still requiring Husain cath. (5) Hypokalemia Is this a current diagnosis for this admission?: Yes Plan: Replaced IV. Trend (6) Parkinson's disease dementia Qualifiers: Dementia behavioral disturbance: without behavioral disturbance Qualified Code(s): G20 - Parkinson's disease; F02.80 - Dementia in other diseases classified elsewhere without behavioral disturbance; F02.80 - Dementia in other diseases classified elsewhere without behavioral disturbance; F02.80 - Dementia in other diseases classified elsewhere without behavioral disturbance Is this a current diagnosis for this admission?: Yes Plan: Restart Sinemet - Time Time Spent with patient: 15-24 minutes Medications reviewed and adjusted accordingly: Yes Anticipated discharge: Hospice Within: within 48 hours - Inpatient Certification Based on my medical assessment, after consideration of the patient's comorbidities, presenting symptoms, or acuity I expect that the services needed warrant INPATIENT care.: Yes I certify that my determination is in accordance with my understanding of Medicare's requirements for reasonable and necessary INPATIENT services [42 CFR 412.3e].: Yes Medical Necessity: Need Close Monitoring Due to Risk of Patient Decompensation, Need for IV Antibiotics
[2017-07-10] MEDS: LORAZEPAM 0.5 MG TABLET PO SCH (23:11)
[2017-07-11] MEDS: PIPERACILLIN SODIUM/TAZOBACTAM 3.375 GM in NORMAL SALINE 100 ML IV SCH ×4 (00:28→16:46)
[2017-07-11] MEDS: IPRATROPIUM/ALBUTEROL 0.5-2.5 MG/3 ML AMPUL NEB SCH ×4 (01:56→19:17)
[2017-07-11] MEDS: CARBIDOPA/LEVODOPA 25-250 MG TABLET PO SCH ×3 (06:17→21:02)
[2017-07-11] MEDS: ENOXAPARIN SODIUM INJ 40 MG/0.4 ML DISP.SYRIN SUBCUT SCH (09:33)
[2017-07-11] MEDS: ASPIRIN 81 MG TABLET, CHEWABLE PO SCH (09:33)
[2017-07-11] MEDS: CHOLECALCIFEROL (D3) 1,000 UNIT TABLET NG SCH (09:33)
[2017-07-11] MEDS: POTASSI CL 40 MEQ/D5-1/2NS 1L 40 MEQ/1,000 ML RTUINJ IV PRN ×2 (09:33→23:51)
[2017-07-11] MEDS: NICOTINE 21 MG/24 HR PATCH.TD24 TD SCH (09:33)
[2017-07-11] MEDS: FLUTICASONE NASAL SPRAY 50 MCG/SPRY 120 SPRAY/16 GM NASL SCH (09:33)
[2017-07-11] MEDS: VANCOMYCIN HCL 1,250 MG in DEXTROSE 5%-WATER 250 ML IV SCH ×2 (09:33→21:02)
--- NOTE | 2017-07-11 17:47 | PDOC PROGRESS REPORT ---
Subjective Progress Note for:: 07/11/17 Subjective:: Unable to obtain secondary to advanced dementia. Review of systems unable to obtain secondary to advanced dementia. Labs and significant diagnostics have been reviewed by me. Reason For Visit: ACUTE MCA Physical Exam Vital Signs: Temp Pulse Resp BP Pulse Ox 99.3 F 103 H 18 132/85 H 92 07/11/17 10:59 07/11/17 14:00 07/11/17 13:40 07/11/17 10:59 07/11/17 12:00 Pulse Oximeter Continuous Start: 07/01/17 23: 27 Freq: RTQ4 Status: Active Document 07/11/17 12:00 DSH (Rec: 07/11/17 13:48 DSH [email or web address]) Pulse Oximetry Assessment Oxygen Saturation (92-100) 92 Oxygen Flow Rate (L/min) 2 Oxygen Delivery Method Nasal Cannula Equipment Usage Equipment in Use Continuous SpO2 Machine # 13 Intake & Output 07/10/17 07/11/17 07/12/17 06:59 06:59 06:59 Intake Total 1765 2540 1200 Output Total 1220 2005 375 Balance 545 535 825 Weight 84.3 kg 84.5 kg General appearance: PRESENT: no acute distress, disheveled, thin Head exam: PRESENT: atraumatic, normocephalic Eye exam: PRESENT: conjunctiva pink Mouth exam: PRESENT: dry mucosa Respiratory exam: PRESENT: clear to auscultation luis, unlabored. ABSENT: rales , wheezes Cardiovascular exam: PRESENT: RRR, systolic murmur Pulses: PRESENT: normal radial pulses GI/Abdominal exam: PRESENT: normal bowel sounds, soft. ABSENT: distended, guarding, tenderness Rectal exam: PRESENT: other - Having a bowel movement during my exam. Gentrourinary exam: PRESENT: indwelling catheter - Husain catheter in place with small amount of blood within secondary to Husain trauma, other Musculoskeletal exam: PRESENT: other - Sarco P neck extremities Psychiatric exam: PRESENT: other - Patient nonverbal. Not really able to perform appropriate psych exam. He does not appear anxious or agitated. Skin exam: PRESENT: dry, warm Results Laboratory Results: 07/09/17 05:25 07/10/17 10:12 06/28/17 06/28/17 06/28/17 00:36 00:36 08:45 Creatine Kinase 337 H 275 H CK-MB (CK-2) 4.99 H Troponin I 0.081 06/28/17 06/28/17 06/28/17 08:45 12:21 12:21 Creatine Kinase 228 H CK-MB (CK-2) 10.60 H 9.38 H Troponin I 1.600 1.470 06/28/17 06/28/17 06/29/17 19:15 19:15 00:50 Creatine Kinase 169 271 H CK-MB (CK-2) 5.33 H Troponin I 1.550 06/29/17 00:50 Creatine Kinase CK-MB (CK-2) 4.65 H Troponin I 1.240 Impressions: Cervical Spine CT 06/25/17 14:27 IMPRESSION: CHRONIC DEGENERATIVE CHANGES. NO ACUTE FINDINGS. KUB X-Ray 06/28/17 00:00 IMPRESSION: Appropriate NG tube. Chest X-Ray 07/06/17 00:00 IMPRESSION: Consolidation in the medial right lung base atelectasis versus pneumonia Abdomen Ultrasound 07/07/17 00:00 IMPRESSION: No acute findings. No cholelithiasis. No biliary ductal dilation. Head CT 07/09/17 00:00 IMPRESSION: No CT evidence of acute ischemic change, acute intracranial hemorrhage, mass effect, or midline shift. Dilated ventricles out of proportion to sulci and sylvian fissures, similar compared to 2012 Right frontal and bilateral sphenoid sinusitis EVIDENCE OF ACUTE STROKE: NO. Modified Barium Swallow 07/09/17 00:00 IMPRESSION: Deep laryngeal penetration to the vocal cords from residuals, without definite aspiration identified.PLEASE SEE SPEECH PATHOLOGIST REPORT FOR OTHER FINDINGS AND RECOMMENDATIONS. Assessment & Plan - Diagnosis (1) Acute respiratory failure with hypercapnia Is this a current diagnosis for this admission?: Yes (2) Parkinson's disease dementia Qualifiers: Dementia behavioral disturbance: without behavioral disturbance Qualified Code(s): G20 - Parkinson's disease; F02.80 - Dementia in other diseases classified elsewhere without behavioral disturbance; F02.80 - Dementia in other diseases classified elsewhere without behavioral disturbance; F02.80 - Dementia in other diseases classified elsewhere without behavioral disturbance Is this a current diagnosis for this admission?: Yes Plan: Sinemet has been restarted. Patient appears stable from his Parkinson's perspective. His dementia is chronic. Family has decided upon home discharge with hospice. We will help facilitate that. (3) Pneumonia Qualifiers: Pneumonia type: due to unspecified organism Laterality: left Lung location: upper lobe of lung Qualified Code(s): J18.1 - Lobar pneumonia, unspecified organism Is this a current diagnosis for this admission?: Yes Plan: She is on Vanco and Zosyn. He also has a sphenoid sinusitis which will be treated with these medications. Continue current care. (4) Urinary retention Is this a current diagnosis for this admission?: Yes Plan: Husain catheter has been placed. Husain trauma secondary to patient trying to remove Husain. Soft mittens have been placed for patient safety. - Time Time Spent with patient: 25-34 minutes Anticipated discharge: Hospice - Inpatient Certification Based on my medical assessment, after consideration of the patient's comorbidities, presenting symptoms, or acuity I expect that the services needed warrant INPATIENT care.: Yes I certify that my determination is in accordance with my understanding of Medicare's requirements for reasonable and necessary INPATIENT services [42 CFR 412.3e].: Yes Medical Necessity: Need Close Monitoring Due to Risk of Patient Decompensation, Need for IV Antibiotics
[2017-07-11] MEDS: LORAZEPAM 0.5 MG TABLET PO SCH (21:02)
[2017-07-12] MEDS: PIPERACILLIN SODIUM/TAZOBACTAM 3.375 GM in NORMAL SALINE 100 ML IV SCH ×3 (00:15→17:50)
[2017-07-12] MEDS: IPRATROPIUM/ALBUTEROL 0.5-2.5 MG/3 ML AMPUL NEB SCH ×4 (01:32→20:01)
[2017-07-12] MEDS ORDERED: LORAZEPAM INJ 2 MG/1 ML VIAL IV ONE (04:15)
[2017-07-12] MEDS: CARBIDOPA/LEVODOPA 25-250 MG TABLET PO SCH ×3 (05:56→22:44)
[2017-07-12 09:54] LABS: HEMATOCRIT 30.8 % (37.9-51.0); HEMOGLOBIN 10.1 g/dL (13.5-17.0); MEAN CORPUSCULAR HEMOGLOBIN 32.1 pg (27.0-33.4); MEAN CORPUSCULAR HGB CONC 32.8 g/dL (32.0-36.0); MEAN CORPUSCULAR VOLUME 98 fl (80-97); PLATELET COUNT 419 10^3/uL (150-450); RED BLOOD COUNT 3.14 10^6/uL (4.35-5.55); RED CELL DISTRIBUTION WIDTH 14.4 % (11.5-14.0); WHITE BLOOD COUNT 15.5 10^3/uL (4.0-10.5)
[2017-07-12] MEDS: ENOXAPARIN SODIUM INJ 40 MG/0.4 ML DISP.SYRIN SUBCUT SCH (10:13)
[2017-07-12] MEDS: ASPIRIN 81 MG TABLET, CHEWABLE PO SCH (10:13)
[2017-07-12] MEDS: CHOLECALCIFEROL (D3) 1,000 UNIT TABLET NG SCH (10:13)
[2017-07-12] MEDS: VANCOMYCIN HCL 1,250 MG in DEXTROSE 5%-WATER 250 ML IV SCH ×2 (10:13→22:42)
[2017-07-12] MEDS: FLUTICASONE NASAL SPRAY 50 MCG/SPRY 120 SPRAY/16 GM NASL SCH (10:14)
[2017-07-12] MEDS: NICOTINE 21 MG/24 HR PATCH.TD24 TD SCH (10:14)
[2017-07-12] MEDS: POTASSI CL 40 MEQ/D5-1/2NS 1L 40 MEQ/1,000 ML RTUINJ IV PRN (10:15)
[2017-07-12 10:25] LABS: ANION GAP 9 (5-19); BLOOD UREA NITROGEN 14 mg/dL (7-20); CALCIUM 8.6 mg/dL (8.4-10.2); CARBON DIOXIDE 30 mmol/L (22-30); CHLORIDE 107 mmol/L (98-107); GLUCOSE 118 mg/dL (75-110); POTASSIUM 4.4 mmol/L (3.6-5.0); SODIUM 145.5 mmol/L (137-145)
--- NOTE | 2017-07-12 14:49 | PDOC PROGRESS REPORT ---
Subjective Progress Note for:: 07/12/17 Subjective:: Cannot obtain subjective, pt has dementia and is not conversational. Cannot obtain ROS from patient. Per RN he is comfortable, breathing relatively comfortably, not too agitated. Today I have reviewed labs and pertinent diagnostics. Reason For Visit: ACUTE MCA Physical Exam Vital Signs: Temp Pulse Resp BP Pulse Ox 100.0 F 106 H 20 163/52 H 90 L 07/12/17 12:15 07/12/17 14:00 07/12/17 12:15 07/12/17 12:15 07/12/17 12:15 Pulse Oximeter Continuous Start: 07/01/17 23: 27 Freq: RTQ4 Status: Active Document 07/12/17 12:00 LDA (Rec: 07/12/17 12:41 LDA [id number]) Pulse Oximetry Assessment Oxygen Saturation (92-100) 94 Oxygen Flow Rate (L/min) 4 Oxygen Delivery Method Nasal Cannula Equipment Usage Equipment in Use Continuous SpO2 Machine # 13 Intake & Output 07/11/17 07/12/17 07/13/17 06:59 06:59 06:59 Intake Total 2540 3008 0 Output Total 2004 3460 500 Balance 891 -1645 -500 Weight 84.5 kg 84.8 kg General appearance: PRESENT: mild distress, thin Head exam: PRESENT: atraumatic, normocephalic Eye exam: PRESENT: conjunctiva pink Mouth exam: PRESENT: dry mucosa Neck exam: ABSENT: lymphadenopathy Respiratory exam: PRESENT: rhonchi, tachypnea, unlabored Cardiovascular exam: PRESENT: RRR, systolic murmur Pulses: PRESENT: normal radial pulses GI/Abdominal exam: PRESENT: normal bowel sounds, soft. ABSENT: distended, tenderness Rectal exam: PRESENT: deferred Extremities exam: ABSENT: tenderness Neurological exam: PRESENT: altered. ABSENT: oriented to person, oriented to place, oriented to situation Psychiatric exam: PRESENT: agitated Skin exam: PRESENT: dry, intact, warm Results Laboratory Results: 07/12/17 08:48 07/12/17 08:48 07/12/17 07/12/17 08:48 08:48 WBC 15.5 H RBC 3.14 L Hgb 10.1 L Hct 30.8 L MCV 98 H MCH 32.1 MCHC 32.8 RDW 14.4 H Plt Count 419 Sodium 145.5 H Potassium 4.4 Chloride 107 Carbon Dioxide 30 Anion Gap 9 BUN 14 Creatinine 1.00 Est GFR ( Amer) > 60 Est GFR (Non-Af Amer) > 60 Glucose 118 H Calcium 8.6 06/28/17 06/28/17 06/28/17 00:36 00:36 08:45 Creatine Kinase 337 H 275 H CK-MB (CK-2) 4.99 H Troponin I 0.081 06/28/17 06/28/17 06/28/17 08:45 12:21 12:21 Creatine Kinase 228 H CK-MB (CK-2) 10.60 H 9.38 H Troponin I 1.600 1.470 06/28/17 06/28/17 06/29/17 19:15 19:15 00:50 Creatine Kinase 169 271 H CK-MB (CK-2) 5.33 H Troponin I 1.550 06/29/17 00:50 Creatine Kinase CK-MB (CK-2) 4.65 H Troponin I 1.240 Impressions: Cervical Spine CT 06/25/17 14:27 IMPRESSION: CHRONIC DEGENERATIVE CHANGES. NO ACUTE FINDINGS. KUB X-Ray 06/28/17 00:00 IMPRESSION: Appropriate NG tube. Chest X-Ray 07/06/17 00:00 IMPRESSION: Consolidation in the medial right lung base atelectasis versus pneumonia Abdomen Ultrasound 07/07/17 00:00 IMPRESSION: No acute findings. No cholelithiasis. No biliary ductal dilation. Head CT 07/09/17 00:00 IMPRESSION: No CT evidence of acute ischemic change, acute intracranial hemorrhage, mass effect, or midline shift. Dilated ventricles out of proportion to sulci and sylvian fissures, similar compared to 2012 Right frontal and bilateral sphenoid sinusitis EVIDENCE OF ACUTE STROKE: NO. Modified Barium Swallow 07/09/17 00:00 IMPRESSION: Deep laryngeal penetration to the vocal cords from residuals, without definite aspiration identified.PLEASE SEE SPEECH PATHOLOGIST REPORT FOR OTHER FINDINGS AND RECOMMENDATIONS. Assessment & Plan - Diagnosis (1) Acute respiratory failure with hypercapnia Is this a current diagnosis for this admission?: Yes Plan: pt has imrpoved respiratory status overall and PNA is being treated. He is on NC o2 which confuses him. family chooses to allow po intake for comfort and risk aspiration. Therefore, respiratory status will likely remain tenuous. (2) Parkinson's disease dementia Qualifiers: Dementia behavioral disturbance: without behavioral disturbance Qualified Code(s): G20 - Parkinson's disease; F02.80 - Dementia in other diseases classified elsewhere without behavioral disturbance; F02.80 - Dementia in other diseases classified elsewhere without behavioral disturbance; F02.80 - Dementia in other diseases classified elsewhere without behavioral disturbance Is this a current diagnosis for this admission?: Yes Plan: end stage, hospice discharge, monitor for safety, prn ativan seems to help with agitation (3) Pneumonia Qualifiers: Pneumonia type: due to unspecified organism Laterality: left Lung location: upper lobe of lung Qualified Code(s): J18.1 - Lobar pneumonia, unspecified organism Is this a current diagnosis for this admission?: Yes Plan: cont vanc and zosyn and consider DC ABX tomorrow for discharge (4) Urinary retention Is this a current diagnosis for this admission?: Yes Plan: will ask family if they want to cont fry for home hospice discharge, he pulls at fry and therefor has soft mittens on so he wont harm himself. - Time Time Spent with patient: 25-34 minutes Anticipated discharge: Hospice - Inpatient Certification Medical Necessity: Significant Comorbidiites Make Outpatient Treatment Too Risky , Need for IV Antibiotics
[2017-07-12] MEDS: ACETAMINOPHEN 650 MG SUPP.RECT PR PRN ×2 (17:01→22:19)
[2017-07-12] MEDS: LORAZEPAM 0.5 MG TABLET PO SCH (22:54)
[2017-07-13] MEDS: PIPERACILLIN SODIUM/TAZOBACTAM 3.375 GM in NORMAL SALINE 100 ML IV SCH ×2 (01:42→06:12)
[2017-07-13] MEDS: IPRATROPIUM/ALBUTEROL 0.5-2.5 MG/3 ML AMPUL NEB SCH ×3 (02:17→14:23)
[2017-07-13] MEDS: CARBIDOPA/LEVODOPA 25-250 MG TABLET PO SCH (06:12)
[2017-07-13] MEDS: ASPIRIN 81 MG TABLET, CHEWABLE PO SCH (10:53)
[2017-07-13] MEDS: NICOTINE 21 MG/24 HR PATCH.TD24 TD SCH (10:53)
[2017-07-13] MEDS: FLUTICASONE NASAL SPRAY 50 MCG/SPRY 120 SPRAY/16 GM NASL SCH (10:53)
[2017-07-13] MEDS: ENOXAPARIN SODIUM INJ 40 MG/0.4 ML DISP.SYRIN SUBCUT SCH (10:53)
[2017-07-13] MEDS: CHOLECALCIFEROL (D3) 1,000 UNIT TABLET NG SCH (10:53)
[2017-07-13] MEDS: VANCOMYCIN HCL 1,250 MG in DEXTROSE 5%-WATER 250 ML IV SCH (10:54)
[2017-07-13] MEDS ORDERED: METOPROLOL TARTRATE PF/INJ 5 MG/5 ML SDV IV ONE (12:22)
[2017-07-13 12:28] VITALS: BP 136/55
[2017-07-13] MEDS ORDERED: METOPROLOL TARTRATE PF/INJ 5 MG/5 ML SDV IV SCH (12:30)
[2017-07-13] MEDS ORDERED: DILTIAZEM HCL INJ 25 MG/5 ML VIAL ONE (12:31)
--- NOTE | 2017-07-13 12:42 | PDOC DISCHARGE SUMMARY ---
General - Admit/Disc Date/PCP Admission Date/Primary Care Provider: 06/26/17 14:51 ARIE SMITH, DO Discharge Date: 07/13/17 - Discharge Diagnosis (1) Parkinson's disease dementia Is this a current diagnosis for this admission?: Yes Summary: end stage disease, taking sinemet, meets hospice criteria given prognosis and end stage disease (2) Pneumonia Is this a current diagnosis for this admission?: Yes (3) Urinary retention Is this a current diagnosis for this admission?: Yes Summary: fry catheter in place, he has been pulling on fry so has soft mits in place (4) Acute on chronic respiratory failure with hypoxemia Is this a current diagnosis for this admission?: Yes Summary: Pt has received several days of vancomycin and zosyn, ABX DCed on discharge. This may be an aspiration PNA given his frequent aspiration. Family has opted to allow pt to eat for comfort and accept the aspiration consequences. He is wearing oxygen for comfort. (5) Aspiration into respiratory tract Is this a current diagnosis for this admission?: Yes Summary: please see above problem and plan (6) Atrial fibrillation with RVR Is this a current diagnosis for this admission?: Yes Summary: new onset, likely due to hypoxemia, diltiazem 5 mg administered to try to reduce heart rate for comfort. (7) NSTEMI (non-ST elevated myocardial infarction) Is this a current diagnosis for this admission?: Yes Summary: he was initially intubated for respiratory failure with pneumonia and aspiration and dementia, he had an NSTEMI and was followed by cardiology, after extubation family changed his code status to DNR DNI and then hospice was decided upon given failure to improve in setting of advanced parkinsons with dementia - Additional Information Resuscitation Status: Do Not Resuscitate Discharge Diet: As Tolerated Discharge Activity: Other - as tolerated, with assistance Home Medications: Lorazepam [Ativan 1 mg Tablet] 2 mg PO QHS 06/25/17 Tamsulosin HCl [Flomax 0.4 mg Cap.sr] 0.4 mg PO DAILY 06/25/17 Acetaminophen [Tylenol 650 mg Supp] 650 mg [place] Q4HP PRN supp.rect 07/13/17 Carbidopa/Levodopa [Sinemet 25-250 mg Tablet] 1 tab PO Q8 tablet 07/13/17 Fluticasone Propionate [Flonase Nasal [place] 50 Mcg/[place] 16 gm] 2 spray NASL DAILY spray.pump 07/13/17 Ipratropium/Albuterol Sulfate [Duoneb 3 ml Ampul] 3 ml NEB RTQ6 vial.neb Lorazepam [Ativan 0.5 mg Tablet] 0.5 mg PO QHS tablet 07/13/17 Nicotine [Nicoderm 21 mg/24 Hr Transderm Patch] 1 each TD DAILY patch.td24 11/22 History of Present Illness Patient complains of: advnaced dementia, no specific complaints from patinet, see HPI for family concerns History of Present Illness: MALIKA SINGH is a 82 year old male with a past medical history of advanced Parkinson's with dementia and delirium, presents with worsening delirium, falls and shortness of breath and cough. In the emergency room he is found to have a CT of the head suggesting normal pressure hydrocephalus which is present from 2011 and left upper lobe infiltrate suggestive of pneumonia. He is started on empiric antibiotics referred to the hospitalist for admission. Family admits severe sundowning and agitation requiring sedation. Physical Exam Vital Signs: Temp Pulse Resp BP Pulse Ox 98.9 F 109 H 22 H 127/62 H 96 07/13/17 07:36 07/13/17 08:42 07/13/17 08:42 07/13/17 07:36 07/13/17 08:42 Pulse Oximeter Continuous Start: 07/01/17 23: 27 Freq: RTQ4 Status: Active Document 07/13/17 08:42 LDA (Rec: 07/13/17 09:22 [email or web address] [email or web address]) Pulse Oximetry Assessment Oxygen Saturation (92-100) 96 Oxygen Flow Rate (L/min) 12 Oxygen Delivery Method Non-Rebreather Fraction of Inspired Oxygen (FIO2) 100 Equipment Usage Equipment in Use Continuous SpO2 Machine # [id number] Intake & Output 07/12/17 07/13/17 07/14/17 06:59 06:59 06:59 Intake Total 3008 680 Output Total 9581 1923 Balance -2182 -8379 Weight 84.8 kg 83.6 kg General appearance: PRESENT: mild distress, thin Head exam: PRESENT: atraumatic, normocephalic, other - bitemporal wasting Eye exam: PRESENT: conjunctiva pink. ABSENT: scleral icterus Mouth exam: PRESENT: dry mucosa Neck exam: PRESENT: lymphadenopathy Respiratory exam: PRESENT: accessory muscle use, rhonchi. ABSENT: clear to auscultation luis, unlabored Cardiovascular exam: PRESENT: irregular rhythm, tachycardia Pulses: PRESENT: normal radial pulses, normal dorsalis pedis pul GI/Abdominal exam: PRESENT: normal bowel sounds, soft. ABSENT: distended, tenderness Rectal exam: PRESENT: deferred Gentrourinary exam: PRESENT: indwelling catheter, other - clear yellow urine Extremities exam: ABSENT: pedal edema, tenderness Musculoskeletal exam: PRESENT: other - bedbound Neurological exam: PRESENT: altered, other - mumbles only Psychiatric exam: PRESENT: anxious Skin exam: PRESENT: dry, mottled, other - kees cool, skin distal legs mottling Results Laboratory Results: 07/12/17 08:48 07/12/17 08:48 06/28/17 06/28/17 06/28/17 00:36 00:36 08:45 Creatine Kinase 337 H 275 H CK-MB (CK-2) 4.99 H Troponin I 0.081 06/28/17 06/28/17 06/28/17 08:45 12:21 12:21 Creatine Kinase 228 H CK-MB (CK-2) 10.60 H 9.38 H Troponin I 1.600 1.470 06/28/17 06/28/17 06/29/17 19:15 19:15 00:50 Creatine Kinase 169 271 H CK-MB (CK-2) 5.33 H Troponin I 1.550 06/29/17 00:50 Creatine Kinase CK-MB (CK-2) 4.65 H Troponin I 1.240 Impressions: Cervical Spine CT 06/25/17 14:27 IMPRESSION: CHRONIC DEGENERATIVE CHANGES. NO ACUTE FINDINGS. KUB X-Ray 06/28/17 00:00 IMPRESSION: Appropriate NG tube. Chest X-Ray 07/06/17 00:00 IMPRESSION: Consolidation in the medial right lung base atelectasis versus pneumonia Abdomen Ultrasound 07/07/17 00:00 IMPRESSION: No acute findings. No cholelithiasis. No biliary ductal dilation. Head CT 07/09/17 00:00 IMPRESSION: No CT evidence of acute ischemic change, acute intracranial hemorrhage, mass effect, or midline shift. Dilated ventricles out of proportion to sulci and sylvian fissures, similar compared to 2012 Right frontal and bilateral sphenoid sinusitis EVIDENCE OF ACUTE STROKE: NO. Modified Barium Swallow 07/09/17 00:00 IMPRESSION: Deep laryngeal penetration to the vocal cords from residuals, without definite aspiration identified.PLEASE SEE SPEECH PATHOLOGIST REPORT FOR OTHER FINDINGS AND RECOMMENDATIONS. Qualifiers PATEINT BEING DISCHARGED WITH ANY OF THE FOLLOWING DIAGNOSIS?: WA [place] Pt being discharged on Aspirin therapy?: No Reason(s) for not prescribing Aspirin therapy:: Hospice Care - not a comfort med [place] Pt being discharged on Statins?: No Reason(s) for not prescribing Statin therapy:: Hospice Care - not a comfort med [place] Pt discharged ACEI/ARBS?: No Reason(s) for not prescribing ACEI/ARBS:: Hospice Care - not a comfort med
[2017-07-13] MEDS ORDERED: LORAZEPAM INJ 2 MG/1 ML VIAL IV PRN (13:11)
[2017-07-13] MEDS ORDERED: DILTIAZEM HCL INJ 25 MG/5 ML VIAL IV ONE ×2 (13:30→14:45)
--- NOTE | 2017-07-13 22:47 | EKG REPORT ---
SEVERITY:- ABNORMAL ECG - ATRIAL FIBRILLATION WITH RAPID V-RATE VENTRICULAR BIGEMINY LEFT VENTRICULAR HYPERTROPHY : Confirmed by: Toribio Lieberman 13-Jul-2017 22:46:55
== END 2017-07-13 14:28 | disposition hospice, inpatient (51) | DRG 208 ==
LOC: ER 13:19 → UNDOADMOB 19:38 → INTOOBSV 19:38 → EH 19:38 → 4N 22:14 → OBSVTOIN 06-26 14:51 → INTOOBSV 06-26 14:51 → 4N 06-27 23:30 → ICU 06-27 23:30 → 3S 07-01 20:07 → ICU 07-01 20:07 → 3S 07-02 20:15
PROVIDERS: ADMIT Internal Medicine; ATTEND Internal Medicine
PROC: 0BH17EZ Insertion of Endotracheal Airway into Trachea, Via Natural or Artificial Opening (ICD-10-PCS; principal; 2017-06-28)
PROC: 5A1945Z Respiratory Ventilation, 24-96 Consecutive Hours (ICD-10-PCS; 2017-06-28)
PROC: 02HV33Z Insertion of Infusion Device into Superior Vena Cava, Percutaneous Approach (ICD-10-PCS; 2017-06-28)
DX: J18.9 Pneumonia, unspecified organism (principal); J96.02 Acute respiratory failure with hypercapnia; I21.A1 Myocardial infarction type 2; G91.2 (Idiopathic) normal pressure hydrocephalus; I42.9 Cardiomyopathy, unspecified; E87.0 Hyperosmolality and hypernatremia; Z66 Do not resuscitate; G20 Parkinson's disease; F02.80 Dementia in other diseases classified elsewhere, unspecified severity, without behavioral disturbance, psychotic disturbance, mood disturbance, and anxiety; R41.0 Disorientation, unspecified; I48.91 Unspecified atrial fibrillation; E78.00 Pure hypercholesterolemia, unspecified; I10 Essential (primary) hypertension; K21.9 Gastro-esophageal reflux disease without esophagitis; E87.6 Hypokalemia; R33.9 Retention of urine, unspecified; R74.8 Abnormal levels of other serum enzymes; K44.9 Diaphragmatic hernia without obstruction or gangrene; Z79.82 Long term (current) use of aspirin; Z79.899 Other long term (current) drug therapy
CPT/HCPCS: 31500; 36415; 70450; 71045; 72125; 74018; 74230; 76705; 80048; 80053; 80061; 80202; 80307; 81001; 82550; 82553; 82565; 82803; 82962; 83735; 84100; 84443; 84484; 85025; 85027; 85610; 85730; 87040; 87086; 87804; 93005; 93010; 93306; 94002; 94003; 94640; 94660; 94762; 99285; C1751; G0378; G8978-GP; G8979-GP; G8987-GO; G8988-GO; G8996-GN; G8997-GN; J0330; J0360; J0692; J0696; J1644; J1650; J1885; J1940; J2060; J2250; J2370; J2543; J2704; J3370; J3480; J3490; J7030; J7060; J7620